=== PATIENT | male | born 1940 | race Caucasian/White ===

== ENCOUNTER 2024-12-27 17:44 | Inpatient (IN) | payer MEDICARE, BC ==
--- NOTE | 2024-12-27 18:07 | ED ---
Weakness HPI - General Chief complaint: Shortness of Breath Stated complaint: SERGIO feeling unwell Time Seen by Provider: 12/27/24 18:05 Source: patient, family, RN notes reviewed, old records reviewed Mode of arrival: wheelchair Limitations: no limitations - History of Present Illness Initial comments: This is a 84-year-old male relatively no distress coming in for exertional dyspnea. Patient has recent longstanding exertional dyspnea with decreased a ctivity level decreased strength unable to get up stairs and go to his own bed and significant shortness of breath with decreased function and decreased activities of daily living MD Complaint: generalized weakness, lack of energy, difficulty walking (Exertional dyspnea) -: week(s) Location: generalized Severity: severe Severity scale (1-10): 8 Consistency: constant Improves with: none Worsens with: none Context: history of similar Associated Symptoms: denies other symptoms, shortness of breath - Related Data Home Medications Medication Instructions Recorded Confirmed Apixaban [Eliquis] 5 mg PO BID 12/28/24 12/28/24 Metoprolol Tartrate [Lopressor] 12.5 mg PO DAILY 12/28/24 12/28/24 Pravastatin Sodium [Pravachol] 20 mg PO DAILY 12/28/24 12/28/24 Terazosin HCl 10 mg PO BID 12/28/24 12/28/24 glyBURIDE/METFORMIN HCL 2 tab PO BID 12/28/24 12/28/24 [Glucovance 5-500 mg] Sacubitril/Valsartan [Entresto 24 24 - 26 each PO BID 12/29/24 12/29/24 mg-26 mg Tablet] Allergies Allergy/AdvReac Type Severity Reaction Status Date / Time No Known Allergies Allergy Verified 12/27/24 17:56 Review of Systems ROS Statement: Those systems with pertinent positive or pertinent negative responses have been documented in the HPI. ROS Other: All systems not noted in ROS Statement are negative. Past Medical History Past Medical History: Atrial Fibrillation, Coronary Artery Disease (CAD), Diabetes Mellitus, Hypertension Additional Past Surgical History / Comment(s): Heart cath with no stents, has a pacemaker Smoking Status: Never smoker Past Alcohol Use History: Rare Past Drug Use History: None Reported General Exam Limitations: no limitations General appearance: anxious Head exam: Present: atraumatic, normocephalic, normal inspection Eye exam: Present: normal appearance, PERRL, EOMI. Absent: scleral icterus, conjunctival injection, periorbital swelling ENT exam: Present: normal exam, mucous membranes moist Neck exam: Present: normal inspection. Absent: tenderness, meningismus, ly mphadenopathy Respiratory exam: Present: normal lung sounds bilaterally. Absent: respiratory distress, wheezes, rales, rhonchi, stridor Cardiovascular Exam: Present: regular rate, normal rhythm, normal heart sounds. Absent: systolic murmur, diastolic murmur, rubs, gallop, clicks GI/Abdominal exam: Present: soft, normal bowel sounds. Absent: distended, tenderness, guarding, rebound, rigid Extremities exam: Present: normal inspection, full ROM, normal capillary refill. Absent: tenderness, pedal edema, joint swelling, calf tenderness Back exam: Present: normal inspection Neurological exam: Present: alert, oriented X3, CN II-XII intact Psychiatric exam: Present: normal affect, normal mood Skin exam: Present: warm, dry, intact, normal color. Absent: rash Course Vital Signs 12/27/24 12/27/24 12/27/24 17:52 21:01 21:09 Temperature 97.8 F Pulse Rate 88 68 71 Respiratory 16 18 18 Rate Blood Pressure 160/71 O2 Sat by Pulse 98 Oximetry 12/27/24 12/28/24 12/28/24 23:27 02:28 04:00 Temperature Pulse Rate 69 71 67 Respiratory 16 18 16 Rate Blood Pressure 115/59 126/66 117/67 O2 Sat by Pulse 97 97 97 Oximetry 12/28/24 12/28/24 12/28/24 06:00 07:56 12:04 Temperature 97.8 F Pulse Rate 62 71 78 Respiratory 16 18 18 Rate Blood Pressure 117/67 117/67 125/68 O2 Sat by Pulse 94 L 95 96 Oximetry 12/28/24 12/28/24 12/28/24 18:07 19:38 20:25 Temperature 97.8 F Pulse Rate 74 74 78 Respiratory 17 21 20 Rate Blood Pressure 134/67 123/59 113/61 O2 Sat by Pulse 94 L 97 98 Oximetry - Reevaluation(s) Reevaluation #1: 12/27/24 18:07 Medical records reviewed Reevaluation #2: 12/27/24 19:56 Patient symptoms relatively unchanged in the emergency department Reevaluation #3: 12/27/24 19:56 Patient informed of results questions answered Reevaluation #4: Was pt. sent in by a medical professional or institution (ALISIA Mccloud, REPORTS DEVELOPER, urgent care, hospital, or shelter...) When possible be specific @ -no Did you speak to anyone other than the patient for history (EMS, parent, family, police, friend...)? What history was obtained from this source @ -no Did you review nursing and triage notes (agree or disagree)? Why? @ -agree Are old charts reviewed (outside hosp., previous admission, EMS record, old EKG, old radiological studies, urgent care reports/EKG's, shelter records)? Report findings @ -yes Differential Diagnosis (chest pain, altered mental status, abdominal pain women, abdominal pain men, vaginal bleeding, weakness, fever, dyspnea, syncope, headache, dizziness, GI bleed, back pain, seizure, CVA, palpatations, mental health, musculoskeletal)? @ -prior EKG interpreted by me (3pts min.). @ -yes X-rays interpreted by me (1pt min.). @ -yes pleural effusion CT interpreted by me (1pt min.). @ -no U/S interpreted by me (1pt. min.). @ -no What testing was considered but not performed or refused? (CT, X-rays, U/S, labs)? Why? @ -none What meds were considered but not given or refused? Why? @ -none Did you discuss the management of the patient with other professionals (professionals i.e. ALISIA Mccloud, REPORTS DEVELOPER, lab, RT, psych nurse, social media job titles, real estate leasing manager, teacher, chief strategy officer, onsite case manager)? Give summary @ -no Was smoking cessation discussed for >3mins.? @ -no Was critical care preformed (if so, how long)? @ -no Were there social determinants of health that impacted care today? How? (Homelessness, low income, unemployed, alcoholism, drug addiction, transportation, low edu. Level, literacy, decrease access to med. care, penitentiary, rehab)? @ -none Was there de-escalation of care discussed even if they declined (Discuss DNR or withdrawal of care, Hospice)? DNR status @ -no What co-morbidities impacted this encounter? (DM, HTN, Smoking, COPD, CAD, Cancer, CVA, ARF, Chemo, Hep., AIDS, mental health diagnosis, sleep apnea, morbid obesity)? @ -none Was patient admitted / discharged? Hospital course, mention meds given and route, prescriptions, significant lab abnormalities, going to OR and other pertinent info. @ - 84 male to ER for multifactorial respiratory distressCHF pleural effusions likely pneumonia with elevated white blood cell count will admit for IV antibi otics breathing treatments pulmonology and cardiology evaluations Admitted Undiagnosed new problem with uncertain prognosis? @ -no Drug Therapy requiring intensive monitoring for toxicity (Heparin, Nitro, Insulin, Cardizem)? @ -no Were any procedures done? @ -no Diagnosis/symptom? @ -Fever, pneumonia, pleural effusions Acute, or Chronic, or Acute on Chronic? @ -Acute Uncomplicated (without systemic symptoms) or Complicated (systemic symptoms)? @ -Complicated Side effects of treatment? @ -no Exacerbation, Progression, or Severe Exacerbation? @ -exacerbation Poses a threat to life or bodily function? How? (Chest pain, USA, VA, pneumonia, PE, COPD, DKA, ARF, appy, cholecystitis, CVA, Diverticulitis, Homicidal, Suicidal, threat to staff... and all critical care pts) @ -yes extremes of age Reevaluation #5: Differential Weakness: Hypoglycemia, shock, sepsis, hyponatremia, anemia, infection, VA, ETOH, adverse medicine reaction, overdose, stroke, this is not meant to be an all-inclusive list. - Consultations Consultation #1: Spoke with sound who agrees to admit this patient EKG Findings - EKG Comments: EKG Findings:: EKG is A-fib 74 QRS 104 QTc 424 - EKG Results: EKG: interpreted by ERMD Medical Decision Making - Medical Decision Making 84 male to ER for multifactorial respiratory distressCHF pleural effusions likely pneumonia with elevated white blood cell count will admit for IV antibiotics breathing treatments pulmonology and cardiology evaluations - Lab Data Result diagrams: 01/02/25 05:55 01/02/25 05:55 Lab Results 12/27/24 12/27/24 12/27/24 Range/Units 18:57 18:57 18:57 WBC 21.1 H (3.8-10.6) k/uL RBC 2.77 L (4.30-5.90) m/uL Hgb 8.4 L (13.0-17.5) gm/dL Hct 26.0 L (39.0-53.0) % MCV 93.9 (80.0-100.0) fL MCH 30.3 (25.0-35.0) pg MCHC 32.2 (31.0-37.0) g/dL RDW 14.6 (11.5-15.5) % Plt Count 365 (150-450) k/uL MPV 8.2 Neutrophils % 88 % Lymphocytes % 7 % Monocytes % 4 % Eosinophils % 1 % Basophils % 0 % Neutrophils # 18.5 H (1.3-7.7) k/uL Lymphocytes # 1.4 (1.0-4.8) k/uL Monocytes # 0.8 (0-1.0) k/uL Eosinophils # 0.2 (0-0.7) k/uL Basophils # 0.1 (0-0.2) k/uL Hypochromasia Slight PT 11.4 (10.0-12.5) sec INR 1.0 (<1.2) APTT 23.2 (22.0-30.0) sec Sodium 135 L (137-145) mmol/L Potassium 4.1 (3.5-5.1) mmol/L Chloride 100 (98-107) mmol/L Carbon Dioxide 26 (22-30) mmol/L Anion Gap 9 mmol/L BUN 26 H (9-20) mg/dL Creatinine 1.18 (0.66-1.25) mg/dL Est GFR (CKD-EPI)AfAm 64 (>60 ml/min/1.73 sqM) Est GFR (CKD-EPI)NonAf 56 (>60 ml/min/1.73 sqM) Glucose 236 H (74-99) mg/dL Lactic Ac Sepsis Rflx Plasma Lactic Acid Flo (0.7-2.0) mmol/L Calcium 8.8 (8.4-10.2) mg/dL Phosphorus 3.2 (2.5-4.5) mg/dL Magnesium 1.9 (1.6-2.3) mg/dL Total Bilirubin 0.4 (0.2-1.3) mg/dL AST 23 (17-59) U/L ALT 13 (4-49) U/L Alkaline Phosphatase 104 (38-126) U/L Troponin I (0.000-0.034) ng/mL NT-Pro-B Natriuret Pep 1790 pg/mL Total Protein 5.9 L (6.3-8.2) g/dL Albumin 3.1 L (3.5-5.0) g/dL TSH 1.850 (0.465-4.680) mIU/L Urine Color Urine Appearance (Clear) Urine pH (5.0-8.0) Ur Specific Alpine (1.001-1.035) Urine Protein (Negative) Urine Glucose (UA) (Negative) Urine Ketones (Negative) Urine Blood (Negative) Urine Nitrite (Negative) Urine Bilirubin (Negative) Urine Urobilinogen (<2.0) mg/dL Ur Leukocyte Esterase (Negative) Urine RBC (0-5) /hpf Urine WBC (0-5) /hpf Urine WBC Clumps (None) /hpf Ur Squamous Epith Cells (0-4) /hpf Calcium Oxalate Crystal (None) /hpf Hyaline Casts (0-2) /lpf Urine Mucus (None) /hpf Influenza Type A (PCR) (Not Detectd) Influenza Type B (PCR) (Not Detectd) RSV (PCR) (Not Detectd) SARS-CoV-2 (PCR) (Not Detectd) 12/27/24 12/27/24 12/27/24 Range/Units 18:57 18:57 18:57 WBC (3.8-10.6) k/uL RBC (4.30-5.90) m/uL Hgb (13.0-17.5) gm/dL Hct (39.0-53.0) % MCV (80.0-100.0) fL MCH (25.0-35.0) pg MCHC (31.0-37.0) g/dL RDW (11.5-15.5) % Plt Count (150-450) k/uL MPV Neutrophils % % Lymphocytes % % Monocytes % % Eosinophils % % Basophils % % Neutrophils # (1.3-7.7) k/uL Lymphocytes # (1.0-4.8) k/uL Monocytes # (0-1.0) k/uL Eosinophils # (0-0.7) k/uL Basophils # (0-0.2) k/uL Hypochromasia PT (10.0-12.5) sec INR (<1.2) APTT (22.0-30.0) sec Sodium (137-145) mmol/L Potassium (3.5-5.1) mmol/L Chloride (98-107) mmol/L Carbon Dioxide (22-30) mmol/L Anion Gap mmol/L BUN (9-20) mg/dL Creatinine (0.66-1.25) mg/dL Est GFR (CKD-EPI)AfAm (>60 ml/min/1.73 sqM) Est GFR (CKD-EPI)NonAf (>60 ml/min/1.73 sqM) Glucose (74-99) mg/dL Lactic Ac Sepsis Rflx Plasma Lactic Acid Flo 3.2 H* (0.7-2.0) mmol/L Calcium (8.4-10.2) mg/dL Phosphorus (2.5-4.5) mg/dL Magnesium (1.6-2.3) mg/dL Total Bilirubin (0.2-1.3) mg/dL AST (17-59) U/L ALT (4-49) U/L Alkaline Phosphatase (38-126) U/L Troponin I 0.014 (0.000-0.034) ng/mL NT-Pro-B Natriuret Pep pg/mL Total Protein (6.3-8.2) g/dL Albumin (3.5-5.0) g/dL TSH (0.465-4.680) mIU/L Urine Color Urine Appearance (Clear) Urine pH (5.0-8.0) Ur Specific Alpine (1.001-1.035) Urine Protein (Negative) Urine Glucose (UA) (Negative) Urine Ketones (Negative) Urine Blood (Negative) Urine Nitrite (Negative) Urine Bilirubin (Negative) Urine Urobilinogen (<2.0) mg/dL Ur Leukocyte Esterase (Negative) Urine RBC (0-5) /hpf Urine WBC (0-5) /hpf Urine WBC Clumps (None) /hpf Ur Squamous Epith Cells (0-4) /hpf Calcium Oxalate Crystal (None) /hpf Hyaline Casts (0-2) /lpf Urine Mucus (None) /hpf Influenza Type A (PCR) Not Detected (Not Detectd) Influenza Type B (PCR) Not Detected (Not Detectd) RSV (PCR) Not Detected (Not Detectd) SARS-CoV-2 (PCR) Not Detected (Not Detectd) 12/27/24 12/27/24 Range/Units 19:49 19:50 WBC (3.8-10.6) k/uL RBC (4.30-5.90) m/uL Hgb (13.0-17.5) gm/dL Hct (39.0-53.0) % MCV (80.0-100.0) fL MCH (25.0-35.0) pg MCHC (31.0-37.0) g/dL RDW (11.5-15.5) % Plt Count (150-450) k/uL MPV Neutrophils % % Lymphocytes % % Monocytes % % Eosinophils % % Basophils % % Neutrophils # (1.3-7.7) k/uL Lymphocytes # (1.0-4.8) k/uL Monocytes # (0-1.0) k/uL Eosinophils # (0-0.7) k/uL Basophils # (0-0.2) k/uL Hypochromasia PT (10.0-12.5) sec INR (<1.2) APTT (22.0-30.0) sec Sodium (137-145) mmol/L Potassium (3.5-5.1) mmol/L Chloride (98-107) mmol/L Carbon Dioxide (22-30) mmol/L Anion Gap mmol/L BUN (9-20) mg/dL Creatinine (0.66-1.25) mg/dL Est GFR (CKD-EPI)AfAm (>60 ml/min/1.73 sqM) Est GFR (CKD-EPI)NonAf (>60 ml/min/1.73 sqM) Glucose (74-99) mg/dL Lactic Ac Sepsis Rflx Y Plasma Lactic Acid Flo (0.7-2.0) mmol/L Calcium (8.4-10.2) mg/dL Phosphorus (2.5-4.5) mg/dL Magnesium (1.6-2.3) mg/dL Total Bilirubin (0.2-1.3) mg/dL AST (17-59) U/L ALT (4-49) U/L Alkaline Phosphatase (38-126) U/L Troponin I (0.000-0.034) ng/mL NT-Pro-B Natriuret Pep pg/mL Total Protein (6.3-8.2) g/dL Albumin (3.5-5.0) g/dL TSH (0.465-4.680) mIU/L Urine Color Yellow Urine Appearance Clear (Clear) Urine pH 5.5 (5.0-8.0) Ur Specific Alpine 1.025 (1.001-1.035) Urine Protein Trace H (Negative) Urine Glucose (UA) 4+ H (Negative) Urine Ketones Negative (Negative) Urine Blood Negative (Negative) Urine Nitrite Negative (Negative) Urine Bilirubin Negative (Negative) Urine Urobilinogen <2.0 (<2.0) mg/dL Ur Leukocyte Esterase Small H (Negative) Urine RBC 7 H (0-5) /hpf Urine WBC 39 H (0-5) /hpf Urine WBC Clumps Rare H (None) /hpf Ur Squamous Epith Cells <1 (0-4) /hpf Calcium Oxalate Crystal Rare H (None) /hpf Hyaline Casts 10 H (0-2) /lpf Urine Mucus Occasional H (None) /hpf Influenza Type A (PCR) (Not Detectd) Influenza Type B (PCR) (Not Detectd) RSV (PCR) (Not Detectd) SARS-CoV-2 (PCR) (Not Detectd) - EKG Data -: EKG Interpreted by Me - Radiology Data Radiology results: report reviewed (Chest x-ray positive for pulmonary edema pleural effusions and likely pneumonia), image reviewed Critical Care Time Critical Care Time: Yes Total Critical Care Time: 31 Disposition Clinical Impression: Community acquired pneumonia, Acute pulmonary edema, Congestive heart failure, Bilateral pleural effusion, Exertional dyspnea Disposition: ADMITTED IP TO THIS HOSP Condition: Fair Is patient prescribed a controlled substance at d/c from ED?: No Time of Disposition: 19:50
[2024-12-27 19:23] LABS: ALT 13 U/L (4-49); AST 23 U/L (17-59); African American GFR (CKD) 64 (>60 ml/min/1.73 sqM); Albumin 3.1 g/dL (3.5-5.0); Alkaline Phosphatase 104 U/L (38-126); Anion Gap 9 mmol/L; Blood Urea Nitrogen 26 mg/dL (9-20); Calcium 8.8 mg/dL (8.4-10.2); Carbon Dioxide 26 mmol/L (22-30); Chloride 100 mmol/L (98-107); Glucose 236 mg/dL (74-99); Magnesium 1.9 mg/dL (1.6-2.3); Non-African American GFR(CKD) 56 (>60 ml/min/1.73 sqM); Phosphorus 3.2 mg/dL (2.5-4.5); Potassium 4.1 mmol/L (3.5-5.1); Sodium 135 mmol/L (137-145); Total Bilirubin 0.4 mg/dL (0.2-1.3); Total Protein 5.9 g/dL (6.3-8.2)
[2024-12-27 19:24] LABS: Partial Thromboplastin Time 23.2 sec (22.0-30.0); Prothrombin Time 11.4 sec (10.0-12.5)
[2024-12-27] MEDS: SODIUM CHLORIDE 0.9% 1,000 ML IV STA (19:25)
[2024-12-27 19:27] LABS: Basophils # (A) 0.1 k/uL (0-0.2); Basophils % (A) 0 %; Eosinophils # (A) 0.2 k/uL (0-0.7); Eosinophils % (A) 1 %; HGB 8.4 gm/dL (13.0-17.5); Hypochromasia Slight; Lymphocytes # (A) 1.4 k/uL (1.0-4.8); Lymphocytes % (A) 7 %; MCH 30.3 pg (25.0-35.0); MCHC 32.2 g/dL (31.0-37.0); MCV 93.9 fL (80.0-100.0); Mean Platelet Volume 8.2; Monocytes # (A) 0.8 k/uL (0-1.0); Monocytes % (A) 4 %; Neutrophils # (A) 18.5 k/uL (1.3-7.7); Neutrophils % (A) 88 %; Platelet Count 365 k/uL (150-450); RBC 2.77 m/uL (4.30-5.90); RDW 14.6 % (11.5-15.5); WBC 21.1 k/uL (3.8-10.6)
--- NOTE | 2024-12-27 19:30 | XR ---
EXAMINATION TYPE: XR chest 2V DATE OF EXAM: 12/27/2024 7:24 PM COMPARISON: None. CLINICAL INDICATION: Male, 84 years old with history of Weakness; [facility] TECHNIQUE: XR chest 2V Frontal and lateral views of the chest. FINDINGS: Cardiomegaly. Left chest wall cardiac pacemaker device. No acute focal consolidation. Small right and trace left pleural effusions. No pneumothorax. No acute osseous abnormality. IMPRESSION: Cardiomegaly with small right and trace left pleural effusions. [facility], , 12/27/2024 7:28 PM
[2024-12-27 19:31] LABS: NT-Pro-B-Type Natriuretic Pept 1790 pg/mL
[2024-12-27 19:49] LABS: Influenza A Not Detected (Not Detectd); Influenza B Not Detected (Not Detectd); RSV Not Detected (Not Detectd)
[2024-12-27] MEDS ORDERED: PNEUMONIA PROTOCOL UTILIZED 1 EACH MISC PO PRN (19:49)
[2024-12-27] MEDS ORDERED: IPRATROPIUM-ALBUTEROL 3 ML NEB INHALATION PRN (19:49)
[2024-12-27] MEDS: FUROSEMIDE 10 MG/ML 4 ML VIAL IV SCH (20:32)
[2024-12-27] MEDS: SODIUM CHLORIDE 0.9% 1,000 ML IV SCH (20:39)
[2024-12-27 20:45] LABS: Appearance,Urine Clear (Clear); Bilirubin,Urine Negative (Negative); Blood,Urine Negative (Negative); Calcium Oxalate Crystals,Urine Rare /hpf; Color,Urine Yellow; Glucose,Urine (UA) 4+ (Negative); Hyaline Casts,Urine 10 /lpf (0-2); Ketones,Urine Negative (Negative); Leukocyte Esterase,Urine Small (Negative); Mucus,Urine Occasional /hpf; Nitrite,Urine Negative (Negative); PH, Urine 5.5 (5.0-8.0); Protein,Urine Trace (Negative); RBC,Urine 7 /hpf (0-5); Specific Gravity,Urine 1.025 (1.001-1.035); Squamous Epithelial Cell,Urine <1 /hpf (0-4); Urobilinogen,Urine <2.0 mg/dL (<2.0); WBC,Urine 39 /hpf (0-5)
[2024-12-27] MEDS: IPRATROPIUM-ALBUTEROL 3 ML NEB INHALATION STA (21:01)
[2024-12-27] MEDS: AZITHROMYCIN 500 MG in SODIUM CHLORIDE 0.9% 250 ML IVPB STA (21:20)
--- NOTE | 2024-12-28 03:25 | P.CNPUL ---
History of Present Illness Consult date: 12/28/24 Requesting physician: Rashel Traore Reason for consult: pneumonia Chief complaint: Shortness of breath History of present illness: Patient is a 84-year-old male with past medical history significant for atrial fibrillation, permanent pacemaker, diabetes mellitus. His primary care provider is a Dr. Morgan Pierre out of [place]. He is uncertain of the medications that he takes. Patient normally follows in [facility] for his medical needs. States that he has been suffering from shortness of breath that limits his activity, progressively worse over the last year. Workup in the emergency department includes a chest x-ray showing cardiomegaly with small to trace bilateral pleural effusions. NT proBNP elevated at 1790. CBC: WBC count 21.1, hemoglobin 8.4, hematocrit 26, platelets 365. CMP: Sodium 135, potassium 4.1, chloride 100, serum bicarb 26, BUN 26, creatinine 1.18, glucose 236. Lactic was 3.2 and is down to 2.2. Troponins 0.014, 0.02, and 0.02 respectively. EKG: Atrial fibrillation with controlled ventricular response, rate 74 bpm, no acute ischemic changes. Viral screen negative for influenza, RSV, COVID. Patient currently being evaluated in the emergency department. He is resting comfortably in bed on room air oxygen. SpO2 reading 97% on bedside monitor. Shortness of breath is particularly worse with exertion. States that he can no longer perform ADLs without much difficulty. He becomes severely short of breath with exertion such as walking out to the mailbox. Denies pre-existing COPD or asthma. Non-smoker. Denies infectious-like symptoms. Denies history of heart failure. Denies chest pain, heart palpitations, lightheadedness/syncopal events, orthopnea, PND, lower extremity swelling. States he does not take any diuretics; however, he is unsure of his home medications. Reportedly does take Eliquis. Denies any samir blood loss, melena. Vital signs: Afebrile, heart rate 70 bpm, blood pressure 126/66 mmHg, nontachypneic, SpO2 reading 97% on room air. Review of Systems Constitutional: Reports fatigue, Denies chills, Denies fever, Denies night sweats, Denies poor appetite, Denies weight gain, Denies weight loss Ears, nose, mouth and throat: Denies headache, Denies nasal congestion, Denies nasal discharge, Denies post-nasal drip, Denies sinus pain, Denies sinus pressure, Denies sore throat Cardiovascular: Reports decreased exercise tolerance, Reports dyspnea on exertion, Denies chest pain, Denies leg edema, Denies lightheadedness, Denies orthopnea, Denies palpitations, Denies paroxysmal nocturnal dyspnea Respiratory: Denies congestion, Denies cough, Denies hemoptysis, Denies home oxygen Gastrointestinal: Denies abdominal pain, Denies change in bowel habits, Denies diarrhea, Denies hematemesis, Denies hematochezia, Denies melena, Denies nausea, Denies vomiting Genitourinary: Denies dysuria Musculoskeletal: Denies limitation of motion Integumentary: Denies rash Neurological: Denies seizures, Denies syncope Psychiatric: Denies anxiety, Denies depression Past Medical History Past Medical History: Atrial Fibrillation, Coronary Artery Disease (CAD), Diabetes Mellitus, Hypertension Additional Past Surgical History / Comment(s): Heart cath with no stents, has a pacemaker Smoking Status: Never smoker Past Alcohol Use History: Rare Past Drug Use History: None Reported Medications and Allergies Allergies Allergy/AdvReac Type Severity Reaction Status Date / Time No Known Allergies Allergy Verified 12/27/24 17:56 Physical Exam Vitals: Vital Signs Temp Pulse Resp BP Pulse Ox 12/27/24 23:27 69 16 115/59 97 12/27/24 21:09 71 18 12/27/24 21:01 68 18 12/27/24 17:52 97.8 F 88 16 160/71 98 Intake and Output 12/27/24 12/27/24 12/28/24 14:59 22:59 06:59 Output Total 750 Balance -750 Output: Urine 750 Other: Weight 79.379 kg GENERAL EXAM: Alert, 84-year-old male, comfortable in no apparent distress while at rest. HEAD: Normocephalic and atraumatic EYES: Normal reaction of pupils, equal size. NOSE: Clear with pink turbinates. THROAT: No erythema or exudates. NECK: No masses, no JVD. CHEST: No chest wall deformity. LUNGS: Equal air entry with no crackles, wheeze, rhonchi or dullness. On room air. No conversational dyspnea or accessory muscle use.. CVS: S1 and S2 normal with no audible murmur, irregular rhythm. No extra heart sounds ABDOMEN: No hepatosplenomegaly, active bowel sounds, no guarding or rigidity. SPINE: No scoliosis or deformity SKIN: No rashes CENTRAL NERVOUS SYSTEM: No focal deficits, tone is normal in all 4 extremities. EXTREMITIES: There is no peripheral edema, clubbing, or cyanosis. Peripheral pulses are intact. Results - Laboratory Findings CBC and BMP: 12/27/24 18:57 12/27/24 18:57 PT/INR, D-dimer PT 11.4 sec (10.0-12.5) 12/27/24 18:57 INR 1.0 (<1.2) 12/27/24 18:57 Abnormal lab findings: Abnormal Labs 12/27/24 12/27/24 12/27/24 18:57 18:57 18:57 WBC 21.1 H RBC 2.77 L Hgb 8.4 L Hct 26.0 L Neutrophils # 18.5 H Sodium 135 L BUN 26 H Glucose 236 H Plasma Lactic Acid Flo 3.2 H* Total Protein 5.9 L Albumin 3.1 L Urine Protein Urine Glucose (UA) Ur Leukocyte Esterase Urine RBC Urine WBC Urine WBC Clumps Calcium Oxalate Crystal Hyaline Casts Urine Mucus 12/27/24 12/27/24 19:50 22:11 WBC RBC Hgb Hct Neutrophils # Sodium BUN Glucose Plasma Lactic Acid Flo 2.2 H* Total Protein Albumin Urine Protein Trace H Urine Glucose (UA) 4+ H Ur Leukocyte Esterase Small H Urine RBC 7 H Urine WBC 39 H Urine WBC Clumps Rare H Calcium Oxalate Crystal Rare H Hyaline Casts 10 H Urine Mucus Occasional H - Diagnostic Findings Chest x-ray: image reviewed Assessment and Plan Assessment: Suspect acute CHF exacerbation, unknown type Acute on chronic dyspnea, chest x-ray showing cardiomegaly with small to trace bilateral pleural effusions. NT proBNP 1790. Acute leukocytosis Normocytic, normochromic anemia, monitor for blood loss Atrial fibrillation with controlled ventricular response, reportedly anticoagulated on Eliquis Permanent pacemaker History of hypertension Diabetes mellitus type 2 Plan: Currently on room air Continue Lasix 40 mg twice daily Echocardiogram is ordered Cardiology consulted Patient previously started on empiric antibiotics in the ED, obtain procalcitonin, and manage accordingly Obtain medication reconciliation and medical history We will continue to follow I have personally seen and examined the patient, performed the documentation and the assessment and plan as written. Number of minutes spent on the visit:20 This dictation was produced using [employer] dictation software please excuse grammatical errors Time with Patient: Greater than 30
--- NOTE | 2024-12-28 06:56 | XR ---
EXAMINATION TYPE: XR chest 1V portable DATE OF EXAM: 12/28/2024 CLINICAL HISTORY: Difficulty breathing and pneumonia progress study. TECHNIQUE: Single AP portable semiupright view of the chest is obtained. COMPARISON: Chest x-ray from one day earlier FINDINGS: There is cardiomegaly with dual lead pacemaker and atherosclerotic thoracic aorta redemons trated. Patchy bibasilar opacities on current study. Upper lungs remain clear. Osseous structures are intact. IMPRESSION: Persistent cardiomegaly with new patchy bibasilar opacities favoring atelectasis. [facility], , 12/28/2024 6:54 AM
[2024-12-28 07:17] LABS: HGB 7.7 gm/dL (13.0-17.5); Hypochromasia Slight; MCH 30.2 pg (25.0-35.0); MCHC 32.2 g/dL (31.0-37.0); MCV 93.8 fL (80.0-100.0); Mean Platelet Volume 7.6; Platelet Count 332 k/uL (150-450); RBC 2.56 m/uL (4.30-5.90); RDW 14.8 % (11.5-15.5); WBC 19.9 k/uL (3.8-10.6)
[2024-12-28 08:42] LABS: Magnesium 1.9 mg/dL (1.6-2.3)
--- NOTE | 2024-12-28 08:45 | P.CRDCN ---
History of Present Illness Consult date: 12/28/24 History of present illness: HISTORY OF PRESENTING ILLNESS: Patient is a 84-year-old male with past medical history of atrial fibrillation, PPM, type 2 diabetes. He presented to the hospital because of increased worsening shortness of breath along with minimal exertion which was progressively getting worse. Cardiology was consulted because of mild elevated NT proBNP and prior history of atrial fibrillation. Diagostics: Admission Labs: Leukocytosis WBC 19.9, anemia hemoglobin 7.7, elevated lactate of 2.2, troponin negative at 0.02, creatinine 1.18, glucose 236, NT-proBNP 1790 Admission EKG: Atrial paced V sensed rhythm Cardio relavant imaging: Chest x-ray shows possible right lower lobe infiltrates consistent with pneumonia. REVIEW OF SYSTEMS: 14 point review of system is negative except what is mentioned above in HPI. PHYSICAL EXAMINATION: Neck: Brisk carotid upstroke, no jugular venous distention. Lungs: Clear to auscultation. Heart: Irregular pulses, S1-S2, , no murmur or rub. Abdomen: Soft nontender, positive bowel sounds. Extremities: No edema, intact distal pulses. Neuro: Alert, oritented, no focal deficits. Detailed neuro exam was not perform ed. ASSESSMENT: # Acute hypoxic respiratory failure # Sepsis with pneumonia # History of atrial fibrillation # History of PPM # Lactic acidosis # Elevated NT proBNP however less likely congestive heart failure from physical examination. PLAN: Obtain lipid panel, HbA1c, TSH level. Obtain procalcitonin level Obtain echocardiogram For some reason he is not on anticoagulation. He is not able to tell me what could be the reason. Patient is a poor historian and has difficulty in hearing. I will start him on Eliquis 2.5 mg twice daily because of age and frail status and anemia. Monitor hemoglobin levels, kidney function. Continue IV diuretics and antibiotics at this time. Consider changing to p.o. diuretics and adding SGLT2 tomorrow based on kidney function and electrolytes. Hoemro Flores MD, FACC, RPVI Thank you for allowing [facility] to participate in this patient's care. Feel free to reach out in case of any followup questions. Past Medical History Past Medical History: Atrial Fibrillation, Coronary Artery Disease (CAD), Diabetes Mellitus, Hypertension Additional Past Surgical History / Comment(s): Heart cath with no stents, has a pacemaker Smoking Status: Never smoker Past Alcohol Use History: Rare Past Drug Use History: None Reported Medications and Allergies Allergies Allergy/AdvReac Type Severity Reaction Status Date / Time No Known Allergies Allergy Verified 12/27/24 17:56 Physical Exam Vitals: Vital Signs Temp Pulse Resp BP Pulse Ox 12/28/24 07:56 97.8 F 71 18 117/67 95 12/28/24 06:00 62 16 117/67 94 L 12/28/24 04:00 67 16 117/67 97 12/28/24 02:28 71 18 126/66 97 12/27/24 23:27 69 16 115/59 97 12/27/24 21:09 71 18 12/27/24 21:01 68 18 12/27/24 17:52 97.8 F 88 16 160/71 98 Intake and Output 12/27/24 12/28/24 12/28/24 22:59 06:59 14:59 Output Total 1125 Balance -1125 Output: Urine 1125 Other: Weight 79.379 kg Results 12/28/24 06:33 12/27/24 18:57 Cardiac Enzymes 12/27/24 12/27/24 12/27/24 Range/Units 18:57 18:57 22:11 AST 23 (17-59) U/L Troponin I 0.014 0.020 (0.000-0.034) ng/mL 12/28/24 Range/Units 01:51 AST (17-59) U/L Troponin I 0.020 (0.000-0.034) ng/mL Coagulation 12/27/24 Range/Units 18:57 PT 11.4 (10.0-12.5) sec APTT 23.2 (22.0-30.0) sec CBC 12/27/24 12/28/24 Range/Units 18:57 06:33 WBC 21.1 H 19.9 H (3.8-10.6) k/uL RBC 2.77 L 2.56 L (4.30-5.90) m/uL Hgb 8.4 L 7.7 L (13.0-17.5) gm/dL Hct 26.0 L 24.0 L (39.0-53.0) % Plt Count 365 332 (150-450) k/uL Comprehensive Metabolic Panel 12/27/24 Range/Units 18:57 Sodium 135 L (137-145) mmol/L Potassium 4.1 (3.5-5.1) mmol/L Chloride 100 (98-107) mmol/L Carbon Dioxide 26 (22-30) mmol/L BUN 26 H (9-20) mg/dL Creatinine 1.18 (0.66-1.25) mg/dL Glucose 236 H (74-99) mg/dL Calcium 8.8 (8.4-10.2) mg/dL AST 23 (17-59) U/L ALT 13 (4-49) U/L Alkaline Phosphatase 104 (38-126) U/L Total Protein 5.9 L (6.3-8.2) g/dL Albumin 3.1 L (3.5-5.0) g/dL Current Medications Generic Name Dose Route Start Last Admin Trade Name Freq PRN Reason Stop Dose Admin Albuterol/Ipratropium 3 ml 12/27/24 19:49 Ipratropium-Albuterol 3 Ml Neb INHALATION RT-QID PRN Shortness Of Breath Azithromycin 500 mg 12/28/24 21:00 Azithromycin 500 Mg Tab PO 12/29/24 21:01 [facility] Protocol Furosemide 40 mg 12/27/24 20:00 12/28/24 07:51 Furosemide 10 Mg/Ml 4 Ml Vial IV 40 mg Q12H CIARA Administration Sodium Chloride 1,000 mls @ 20 mls/hr 12/27/24 20:00 12/27/24 20:39 Saline 0.9% IV Not Given .Q24H CIARA Ceftriaxone Sodium 2 gm/ 50 mls @ 100 mls/hr 12/28/24 21:00 Sodium Chloride IVPB 12/31/24 21:29 [facility] Protocol Miscellaneous Information 1 each 12/27/24 19:49 Pneumonia Protocol Utilized 1 Each Misc PO ONCE PRN Per Protocol Intake and Output 12/27/24 12/28/24 12/28/24 22:59 06:59 14:59 Output Total 1125 Balance -1125 Output: Urine 1125 Other: Weight 79.379 kg 12/28/24 06:33 12/27/24 18:57
[2024-12-28] MEDS: APIXABAN 2.5 MG TABLET PO SCH (08:57)
[2024-12-28 15:22] LABS: Chol/HDL Ratio 3.99 Ratio; VLDL Calculation 17.72 mg/dL (5.00-40.00)
[2024-12-28] MEDS ORDERED: DEXTROSE 50% SYRINGE 50 ML IVP PRN ×2 (17:24)
--- NOTE | 2024-12-28 17:26 | P.HPIM ---
History of Present Illness H&P Date: 12/28/24 84 year old M with PMH AFib, pacemaker, DM, CAD, HTN presents to the ED for shortness of breath. Supplemental information obtained from family at bedside as patient is a poor historian. Family reports exertional shortness of breath, fatigue, unsteady gait that has been progressively getting worse over the past month. Family also reports melanotic stools and decreased appetite leading to 30 pound weight loss since May. Patient denies cough, fever or chills, nausea or vomiting, lower extremity edema, changes in urination. In the ED he underwent extensive evaluation. BP 160/71, HR 88, T 97.8F, RR 16, 98% on RA. CBC, Coag panel, CMP significant for WBC 21.1, RBC 2.77, Hg 8.4, Hct 26, Na 135, BUN 26, glu 236, alb 3.1. Lactic acid 3.2. BNP 1790. Trop 0.014, 0.02, 0.02. Procal 0.14. TSH 1.85. UA small LE with 39 WBCs. COVID, RSV, Flu neg. CXR cardiomegaly with small R and trace L pleural effusion. EKG A-Fib with Q waves in the inferior leads. Patient is admitted for further workup and management. General: non toxic, no distress, appears at stated age Derm: warm, dry Head: atraumatic, normocephalic, symmetric Eyes: EOMI, no lid lag, anicteric sclera Mouth: no lip lesion, mucus membranes moist Cardiovascular: S1 S2 irreg. No murmurs, rubs or gallops. Lungs: Decreased BS bilaterally, no accessory muscle use Ext: no gross muscle atrophy, no edema, no contractures Neuro: no focal neuro deficits Psych: Alert, oriented, appropriate affect Based on my assessment of this patient, this patient meets a high complexity level of care. Acute CHF exacerbation with bilateral pleural effusions: Lasix 40 mg IV BID. Monitor renal function and electrolytes. Strict intake and outtake. Daily kadie ghts. Obtain Echo. Cardiology consulted. SIRS: Unknown etiology. Procal negative. Continue Rocephin 1g IV QD and Azithromycin 500 mg PO QD. Sputum and Blood cultures ordered. Telemetry monitoring. Normocytic anemia: Reports of melena. Obtain iron studies. Transfuse if Hg < 7. Stool for occult blood. Lactic acidosis: Trend until negative. DM with hyperglycemia: A1c 6.6. ISS with Accuchecks ACHS and Hypoglycemic precautions. AFib: Eliquis 2.5 mg PO BID. Metoprolol 12.5 mg PO QD. CAD: Metoprolol and Eliquis as above. Pravastatin 20 mg PO QD. HTN: Metoprolol as above. CODE STATUS: FULL CODE DVT Prophylaxis: Eliquis. GI Prophylaxis: Designated medical POA if patient is not able to make medical decisions for themselves: I have reviewed the following technology consultant notes: Cardiology, ED, Pulmonary I have reviewed the results of the following tests: As above. I have ordered the following tests: As above I have discussed the care of this patient with the following independent historian: I have independently interpreted the following test below: CXR I have discussed the management of this patient with the following physician: Past Medical History Past Medical History: Atrial Fibrillation, Coronary Artery Disease (CAD), Diabetes Mellitus, Hypertension Additional Past Surgical History / Comment(s): Heart cath with no stents, has a pacemaker Smoking Status: Never smoker Past Alcohol Use History: Rare Past Drug Use History: None Reported Medications and Allergies Home Medications Medication Instructions Recorded Confirmed Type Apixaban [Eliquis] 5 mg PO BID 12/28/24 12/28/24 History Metoprolol Tartrate [Lopressor] 12.5 mg PO DAILY 12/28/24 12/28/24 History Pravastatin Sodium [Pravachol] 20 mg PO DAILY 12/28/24 12/28/24 History Terazosin HCl 10 mg PO BID 12/28/24 12/28/24 History glyBURIDE/METFORMIN HCL 2 tab PO BID 12/28/24 12/28/24 History [Glucovance 5-500 mg] Allergies Allergy/AdvReac Type Severity Reaction Status Date / Time No Known Allergies Allergy Verified 12/27/24 17:56 Physical Exam Vitals: Vital Signs Temp Pulse Resp BP Pulse Ox 12/28/24 07:56 97.8 F 71 18 117/67 95 12/28/24 06:00 62 16 117/67 94 L 12/28/24 04:00 67 16 117/67 97 12/28/24 02:28 71 18 126/66 97 12/27/24 23:27 69 16 115/59 97 12/27/24 21:09 71 18 12/27/24 21:01 68 18 12/27/24 17:52 97.8 F 88 16 160/71 98 Intake and Output 12/27/24 12/28/24 12/28/24 22:59 06:59 14:59 Output Total 1125 Balance -1125 Output: Urine 1125 Other: Weight 79.379 kg Results CBC & Chem 7: 12/28/24 06:33 12/27/24 18:57 Labs: Abnormal Lab Results - Last 24 Hours (Table) 12/27/24 12/27/24 12/27/24 Range/Units 18:57 18:57 18:57 WBC 21.1 H (3.8-10.6) k/uL RBC 2.77 L (4.30-5.90) m/uL Hgb 8.4 L (13.0-17.5) gm/dL Hct 26.0 L (39.0-53.0) % Neutrophils # 18.5 H (1.3-7.7) k/uL Sodium 135 L (137-145) mmol/L BUN 26 H (9-20) mg/dL Glucose 236 H (74-99) mg/dL Plasma Lactic Acid Flo 3.2 H* (0.7-2.0) mmol/L Total Protein 5.9 L (6.3-8.2) g/dL Albumin 3.1 L (3.5-5.0) g/dL Urine Protein (Negative) Urine Glucose (UA) (Negative) Ur Leukocyte Esterase (Negative) Urine RBC (0-5) /hpf Urine WBC (0-5) /hpf Urine WBC Clumps (None) /hpf Calcium Oxalate Crystal (None) /hpf Hyaline Casts (0-2) /lpf Urine Mucus (None) /hpf 12/27/24 12/27/24 12/28/24 Range/Units 19:50 22:11 06:33 WBC 19.9 H (3.8-10.6) k/uL RBC 2.56 L (4.30-5.90) m/uL Hgb 7.7 L (13.0-17.5) gm/dL Hct 24.0 L (39.0-53.0) % Neutrophils # (1.3-7.7) k/uL Sodium (137-145) mmol/L BUN (9-20) mg/dL Glucose (74-99) mg/dL Plasma Lactic Acid Flo 2.2 H* (0.7-2.0) mmol/L Total Protein (6.3-8.2) g/dL Albumin (3.5-5.0) g/dL Urine Protein Trace H (Negative) Urine Glucose (UA) 4+ H (Negative) Ur Leukocyte Esterase Small H (Negative) Urine RBC 7 H (0-5) /hpf Urine WBC 39 H (0-5) /hpf Urine WBC Clumps Rare H (None) /hpf Calcium Oxalate Crystal Rare H (None) /hpf Hyaline Casts 10 H (0-2) /lpf Urine Mucus Occasional H (None) /hpf
[2024-12-28 17:34] LABS: Glucose,Whole Blood 270 mg/dL (70-110)
[2024-12-28] MEDS: INSULIN ASPART (NovoLOG) 100 UNIT/ML VIAL SQ SCH (18:05)
[2024-12-28 18:50] LABS: % Iron Saturation 6.1 (15.00-50.00)
[2024-12-28 20:59] LABS: Glucose,Whole Blood 154 mg/dL (70-110)
[2024-12-28] MEDS ORDERED: AZITHROMYCIN 500 MG TAB PO SCH (21:00)
[2024-12-28] MEDS: DOXAZOSIN 4 MG TAB PO SCH (21:04)
[2024-12-28] MEDS: AZITHROMYCIN 500 MG TAB PO SCH (21:04)
[2024-12-29 06:20] LABS: Glucose,Whole Blood 135 mg/dL (70-110)
--- NOTE | 2024-12-29 07:19 | XR ---
EXAMINATION TYPE: XR chest 2V DATE OF EXAM: 12/29/2024 7:04 AM COMPARISON: Chest x-ray yesterday and 2 days ago. CLINICAL INDICATION: Male, 84 years old with history of pneumonia, TECHNIQUE: Frontal and lateral views of the chest are obtained. FINDINGS: There is cardiomegaly with dual lead pacemaker and atherosclerotic thoracic aorta redemons trated. Patchy bibasilar opacities redemonstrated. Upper lungs remain clear. Scoliosis is seen. IMPRESSION: Persistent cardiomegaly with small bilateral pleural effusions. Correlate for CHF exacerb ation/fluid overload state. Associated bibasilar opacities favor compressive atelectasis. [facility], , 12/29/2024 7:17 AM
[2024-12-29 07:57] LABS: HCT 26.8 % (39.0-53.0); HGB 8.4 gm/dL (13.0-17.5); MCH 29.3 pg (25.0-35.0); MCHC 31.4 g/dL (31.0-37.0); MCV 93.3 fL (80.0-100.0); Mean Platelet Volume 8.7; Platelet Count 386 k/uL (150-450); RBC 2.88 m/uL (4.30-5.90); RDW 15.1 % (11.5-15.5); WBC 18.8 k/uL (3.8-10.6)
[2024-12-29 08:10] LABS: African American GFR (CKD) 64 (>60 ml/min/1.73 sqM); Anion Gap 11 mmol/L; Blood Urea Nitrogen 21 mg/dL (9-20); Calcium 8.8 mg/dL (8.4-10.2); Carbon Dioxide 27 mmol/L (22-30); Chloride 98 mmol/L (98-107); Glucose 123 mg/dL (74-99); Magnesium 1.9 mg/dL (1.6-2.3); Non-African American GFR(CKD) 55 (>60 ml/min/1.73 sqM); Potassium 3.9 mmol/L (3.5-5.1); Sodium 136 mmol/L (137-145)
[2024-12-29] MEDS ORDERED: METOPROLOL TARTRATE 12.5 MG TAB PO SCH (09:00)
[2024-12-29] MEDS ORDERED: ENOXAPARIN 40 MG/0.4 ML SYRINGE SQ SCH (09:00)
[2024-12-29] MEDS: DAPAGLIFLOZIN PROPANEDIOL 10 MG TABLET PO SCH (09:21)
[2024-12-29] MEDS: PRAVASTATIN SODIUM 20 MG TAB PO SCH (09:21)
[2024-12-29] MEDS: METOPROLOL SUCCINATE (ER) 25 MG TAB.ER.24H PO STA (09:22)
[2024-12-29] MEDS: TORSEMIDE 20 MG TAB PO SCH (09:28)
[2024-12-29 11:41] LABS: Glucose,Whole Blood 255 mg/dL (70-110)
[2024-12-29] MEDS: FERROUS SULFATE 325 MG TAB PO SCH (12:12)
--- NOTE | 2024-12-29 13:06 | P.PN ---
Subjective Progress Note Date: 12/29/24 HISTORY OF PRESENTING ILLNESS: Patient is a 84-year-old male with past medical history of atrial fibrillation, PPM, type 2 diabetes. He presented to the hospital because of increased worsening shortness of breath along with minimal exertion which was progressively getting worse. Cardiology was consulted because of mild elevated NT proBNP and prior history of atrial fibrillation. Diagostics: Admission Labs: Leukocytosis WBC 19.9, anemia hemoglobin 7.7, elevated lactate of 2.2, troponin negative at 0.02, creatinine 1.18, glucose 236, NT-proBNP 1790 Admission EKG: Atrial paced V sensed rhythm Cardio relavant imaging: Chest x-ray shows possible right lower lobe infiltrates consistent with pneumonia. 12/29 Patient seen and examined. She states that her shortness of breath is better. No lower extremity edema. Blood pressure 90/53, heart rate 70, pulse ox 99% on room air. Telemetry sinus rhythm/paced rhythm. Repeat blood work reveals hemoglobin 8.4, BUN 21 creatinine 1.19. Chest x-ray reveals persistent cardiomegaly with small bilateral pleural effusions. Correlate for CHF exacerbation or fluid overload state. Associated bibasilar opacities favor compressive atelectasis. A1c 6.6. TSH 1.85. Triglycerides 88, cholesterol 121, LDL 73. Procalcitonin 0.14. Echocardiogram report is pending. PHYSICAL EXAMINATION: Neck: Brisk carotid upstroke, no jugular venous distention. Lungs: Clear to auscultation. Heart: Irregular pulses, S1-S2, , no murmur or rub. Abdomen: Soft nontender, positive bowel sounds. Extremities: No edema, intact distal pulses. Neuro: Alert, oritented, no focal deficits. Detailed neuro exam was not performed. ASSESSMENT: # Acute hypoxic respiratory failure # Sepsis with pneumonia # History of paroxysmal atrial fibrillation # History of PPM # Lactic acidosis # Elevated NT proBNP however less likely congestive heart failure from physical examination. PLAN: Obtain echocardiogram report Transition IV Lasix to oral Demadex 10 mg daily starting this morning Increase beta-lam to Toprol 25 mg daily Start patient on Eliquis 2.5 mg twice daily and discontinue Lovenox Nurse practitioner note has been reviewed, I agree with documented findings and plan of care. Patient was seen and examined. Objective - Vital Signs Vital signs: Vital Signs Temp 97.5 F L 12/29/24 07:48 Pulse 81 02/11/25 07:48 Resp 16 12/29/24 07:48 BP 123/72 12/29/24 07:48 Pulse Ox 98 12/29/24 07:48 FiO2 Intake & Output 12/28/24 12/29/24 12/29/24 18:59 06:59 18:59 Output Total 900 700 Balance -900 -700 Weight 80 kg Output: Urine 900 700 Other: Voiding Method Urinal - Labs CBC & Chem 7: 12/29/24 07:12 12/29/24 07:12 Labs: Abnormal Lab Results - Last 24 Hours (Table) 12/28/24 12/28/24 12/28/24 Range/Units 06:11 06:33 06:33 WBC (3.8-10.6) k/uL RBC (4.30-5.90) m/uL Hgb (13.0-17.5) gm/dL Hct (39.0-53.0) % POC Glucose (mg/dL) (70-110) mg/dL Hemoglobin A1c 6.6 H (<=6.0) % Iron 13 L (65-175) UG/DL TIBC 213 L (228-460) UG/DL % Saturation 6.10 L (15.00-50.00) Transferrin 152.0 L (204.0-354.0) mg/dL HDL Cholesterol 30.30 L (40.00-60.00) mg/dL 12/28/24 12/28/24 12/29/24 Range/Units 17:32 20:54 06:17 WBC (3.8-10.6) k/uL RBC (4.30-5.90) m/uL Hgb (13.0-17.5) gm/dL Hct (39.0-53.0) % POC Glucose (mg/dL) 270 H 154 H 135 H (70-110) mg/dL Hemoglobin A1c (<=6.0) % Iron (65-175) UG/DL TIBC (228-460) UG/DL % Saturation (15.00-50.00) Transferrin (204.0-354.0) mg/dL HDL Cholesterol (40.00-60.00) mg/dL 12/29/24 Range/Units 07:12 WBC 18.8 H (3.8-10.6) k/uL RBC 2.88 L (4.30-5.90) m/uL Hgb 8.4 L (13.0-17.5) gm/dL Hct 26.8 L (39.0-53.0) % POC Glucose (mg/dL) (70-110) mg/dL Hemoglobin A1c (<=6.0) % Iron (65-175) UG/DL TIBC (228-460) UG/DL % Saturation (15.00-50.00) Transferrin (204.0-354.0) mg/dL HDL Cholesterol (40.00-60.00) mg/dL Microbiology - Last 24 Hours (Table) 12/27/24 19:53 Blood Culture - Preliminary Blood
--- NOTE | 2024-12-29 13:09 | P.PN ---
Subjective Progress Note Date: 12/29/24 84 year old M with PMH AFib, pacemaker, DM, CAD, HTN presents to the ED for shortness of breath. Supplemental information obtained from family at bedside as patient is a poor historian. Family reports exertional shortness of breath, fatigue, unsteady gait that has been progressively getting worse over the past month. Family also reports melanotic stools and decreased appetite leading to 30 pound weight loss since May. Patient denies cough, fever or chills, nausea or vomiting, lower extremity edema, changes in urination. In the ED he underwent extensive evaluation. BP 160/71, HR 88, T 97.8F, RR 16, 98% on RA. CBC, Coag panel, CMP significant for WBC 21.1, RBC 2.77, Hg 8.4, Hct 26, Na 135, BUN 26, glu 236, alb 3.1. Lactic acid 3.2. BNP 1790. Trop 0.014, 0.02, 0.02. Procal 0.14. TSH 1.85. UA small LE with 39 WBCs. COVID, RSV, Flu neg. CXR cardiomegaly with small R and trace L pleural effusion. EKG A-Fib with Q waves in the inferior leads. Patient is admitted for further workup and management. 12/29 Patient was seen and examined. Breathing improved but still short of breath. Maintained on Rocephin 2g IV QD and Azithromycin 500 mg PO QD (D2). Cardiology switched Lasix IV to Torsemide. CBC and BMP significant for WBC 18.8, RBC 2.88, Hg 8.4, Hct 26.8, Na 136, BUN 21, glu 123. Mag 1.9. CXR shows bilateral pleural effusion and pulmonary vascular congestion. BCx neg so far. Iron studies Fe 13, % sat 6.1, Ferritin 322. General: non toxic, no distress, appears at stated age Derm: warm, dry Head: atraumatic, normocephalic, symmetric Eyes: EOMI, no lid lag, anicteric sclera Mouth: no lip lesion, mucus membranes moist Cardiovascular: S1 S2 irreg. No murmurs, rubs or gallops. Lungs: Decreased BS bilaterally, no accessory muscle use Ext: no gross muscle atrophy, no edema, no contractures Neuro: no focal neuro deficits Psych: Alert, oriented, appropriate affect Based on my assessment of this patient, this patient meets a high complexity level of care. Acute CHF exacerbation with bilateral pleural effusions: Lasix 40 mg IV BID to Torsemide 10 mg PO QD. Monitor renal function and electrolytes. Strict intake and outtake. Daily weights. Echo pending. Cardiology consulted. SIRS: Unknown etiology. Procal negative. Continue Rocephin 1g IV QD and Azithromycin 500 mg PO QD. Sputum and Blood cultures ordered. Telemetry monitoring. Iron def anemia: Reports of melena. Iron studies as above. Restart FeSO4 325 mg PO QD. Transfuse if Hg < 7. Stool for occult blood pending. DM with hyperglycemia: A1c 6.6. ISS with Accuchecks ACHS and Hypoglycemic precautions. AFib: Eliquis 2.5 mg PO BID. Metoprolol 25 mg PO QD. CAD: Metoprolol and Eliquis as above. Pravastatin 20 mg PO QD. HTN: Metoprolol as above. Resolved: Lactic acidosis CODE STATUS: FULL CODE DVT Prophylaxis: Eliquis. GI Prophylaxis: Designated medical POA if patient is not able to make medical decisions for themselves: I have reviewed the following ux consultant notes: I have reviewed the results of the following tests: CBC, BMP, Mag, BCx, Iron studies I have ordered the following tests: Echo, Stool occult, Sputum and BCx pending. I have discussed the care of this patient with the following independent historian: I have independently interpreted the following test below: CXR I have discussed the management of this patient with the following physician: Objective - Vital Signs Vital signs: Vital Signs Temp 97.9 F 12/29/24 11:12 Pulse 70 12/29/24 11:12 Resp 14 12/29/24 11:12 BP 90/53 12/29/24 11:12 Pulse Ox 99 12/29/24 11:12 FiO2 Intake & Output 12/28/24 12/29/24 12/29/24 18:59 06:59 18:59 Intake Total 240 Output Total 900 700 Balance -900 -700 240 Weight 80 kg 80 kg Intake: Oral 240 Output: Urine 900 700 Other: Voiding Method Urinal Urinal - Labs CBC & Chem 7: 12/29/24 07:12 12/29/24 07:12 Labs: Abnormal Lab Results - Last 24 Hours (Table) 12/28/24 12/28/24 12/28/24 Range/Units 06:11 06:33 17:32 WBC (3.8-10.6) k/uL RBC (4.30-5.90) m/uL Hgb (13.0-17.5) gm/dL Hct (39.0-53.0) % Sodium (137-145) mmol/L BUN (9-20) mg/dL Glucose (74-99) mg/dL POC Glucose (mg/dL) 270 H (70-110) mg/dL Iron 13 L (65-175) UG/DL TIBC 213 L (228-460) UG/DL % Saturation 6.10 L (15.00-50.00) Transferrin 152.0 L (204.0-354.0) mg/dL HDL Cholesterol 30.30 L (40.00-60.00) mg/dL 12/28/24 12/29/24 12/29/24 Range/Units 20:54 06:17 07:12 WBC 18.8 H (3.8-10.6) k/uL RBC 2.88 L (4.30-5.90) m/uL Hgb 8.4 L (13.0-17.5) gm/dL Hct 26.8 L (39.0-53.0) % Sodium (137-145) mmol/L BUN (9-20) mg/dL Glucose (74-99) mg/dL POC Glucose (mg/dL) 154 H 135 H (70-110) mg/dL Iron (65-175) UG/DL TIBC (228-460) UG/DL % Saturation (15.00-50.00) Transferrin (204.0-354.0) mg/dL HDL Cholesterol (40.00-60.00) mg/dL 12/29/24 12/29/24 Range/Units 07:12 11:40 WBC (3.8-10.6) k/uL RBC (4.30-5.90) m/uL Hgb (13.0-17.5) gm/dL Hct (39.0-53.0) % Sodium 136 L (137-145) mmol/L BUN 21 H (9-20) mg/dL Glucose 123 H (74-99) mg/dL POC Glucose (mg/dL) 255 H (70-110) mg/dL Iron (65-175) UG/DL TIBC (228-460) UG/DL % Saturation (15.00-50.00) Transferrin (204.0-354.0) mg/dL HDL Cholesterol (40.00-60.00) mg/dL Microbiology - Last 24 Hours (Table) 12/27/24 19:53 Blood Culture - Preliminary Blood
[2024-12-29] MEDS: polyethylene glycoL 3350 17 GM POWD.PACK PO SCH (14:13)
--- NOTE | 2024-12-29 14:35 | P.PN ---
Subjective Progress Note Date: 12/29/24 Principal diagnosis: Shortness of breath. Patient is a 84-year-old male with past medical history significant for atrial fibrillation, permanent pacemaker, diabetes mellitus. His primary care provider is a Dr. Morgan Pierre out of [place]. He is uncertain of the medications that he takes. Patient normally follows in [facility] for his medical needs. States that he has been suffering from shortness of breath that limits his activity, progressively worse over the last year. Workup in the emergency department includes a chest x-ray showing cardiomegaly with small to trace bilateral pleural effusions. NT proBNP elevated at 1790. CBC: WBC count 21.1, hemoglobin 8.4, hematocrit 26, platelets 365. CMP: Sodium 135, potassium 4.1, chloride 100, serum bicarb 26, BUN 26, creatinine 1.18, glucose 236. Lactic was 3.2 and is down to 2.2. Troponins 0.014, 0.02, and 0.02 respectively. EKG: Atrial fibrillation with controlled ventricular response, rate 74 bpm, no acute isch emic changes. Viral screen negative for influenza, RSV, COVID. Patient currently being evaluated in the emergency department. He is resting comfortably in bed on room air oxygen. SpO2 reading 97% on bedside monitor. Shortness of breath is particularly worse with exertion. States that he can no longer perform ADLs without much difficulty. He becomes severely short of breath with exertion such as walking out to the mailbox. Denies pre-existing COPD or asthma. Non-smoker. Denies infectious-like symptoms. Denies history of heart failure. Denies chest pain, heart palpitations, lightheadedness/syncopal events, orthopnea, PND, lower extremity swelling. States he does not take any diuretics; however, he is unsure of his home medications. Reportedly does take Eliquis. Denies any samir blood loss, melena. Vital signs: Afebrile, heart rate 70 bpm, blood pressure 126/66 mmHg, nontachypneic, SpO2 reading 97% on room air. Progress note dated December 29, 2024. 84-year-old male admitted with a primary diagnosis of CHF. Currently, the patient is seen today in room 373. He is sitting at the bed side, in a chair, in no distress. He is not receiving any supplemental oxygen, or IV fluids. He has no specific complaints today. Current laboratory data includes a white count 18.8, hemoglobin 8.4, hematocrit 26.8, and a platelet count of 386,000. Sodium 136, potassium 3.9, chlorides 98, CO2 27, anion gap 11, BUN 21, creatinine 1.19. Glucose is 255. Calcium is 8.8. Magnesium 1.9. Chest x-ray today shows cardiomegaly, with small bilateral pleural effusions. The chest x- ray is most compatible with CHF. Objective - Vital Signs Vital signs: Vital Signs Temp 97.9 F 12/29/24 11:12 Pulse 70 12/29/24 11:12 Resp 14 12/29/24 11:12 BP 90/53 12/29/24 11:12 Pulse Ox 99 12/29/24 11:12 FiO2 Intake & Output 12/28/24 12/29/24 12/29/24 18:59 06:59 18:59 Intake Total 240 Output Total 900 700 300 Balance -900 -700 -60 Weight 80 kg 80 kg Intake: Oral 240 Output: Urine 900 700 300 Other: Voiding Method Urinal Urinal - Exam No acute distress, oriented 3. Currently on room air. HEENT examination is grossly unremarkable. Mucous membranes are moist. No oral lesions. Neck supple. Full range of motion. No adenopathy thyromegaly or neck vein distention. Cardiovascular examination reveals regular rhythm rate. S1-S2 normal. No S3 or S4. No discernible murmur noted. Lungs reveal mostly clear breath sounds. Minimal basilar crackles. No wheezes. No rhonchi. Abdomen soft bowel sounds are heard. No masses or tenderness. Extremities are intact. No cyanosis clubbing or edema. Skin is without rash or lesion. Neurologic examination is brief but nonfocal. - Labs CBC & Chem 7: 12/29/24 07:12 12/29/24 07:12 Labs: Abnormal Lab Results - Last 24 Hours (Table) 12/28/24 12/28/24 12/28/24 Range/Units 06:11 06:33 17:32 WBC (3.8-10.6) k/uL RBC (4.30-5.90) m/uL Hgb (13.0-17.5) gm/dL Hct (39.0-53.0) % Sodium (137-145) mmol/L BUN (9-20) mg/dL Glucose (74-99) mg/dL POC Glucose (mg/dL) 270 H (70-110) mg/dL Iron 13 L (65-175) UG/DL TIBC 213 L (228-460) UG/DL % Saturation 6.10 L (15.00-50.00) Transferrin 152.0 L (204.0-354.0) mg/dL HDL Cholesterol 30.30 L (40.00-60.00) mg/dL 12/28/24 12/29/24 12/29/24 Range/Units 20:54 06:17 07:12 WBC 18.8 H (3.8-10.6) k/uL RBC 2.88 L (4.30-5.90) m/uL Hgb 8.4 L (13.0-17.5) gm/dL Hct 26.8 L (39.0-53.0) % Sodium (137-145) mmol/L BUN (9-20) mg/dL Glucose (74-99) mg/dL POC Glucose (mg/dL) 154 H 135 H (70-110) mg/dL Iron (65-175) UG/DL TIBC (228-460) UG/DL % Saturation (15.00-50.00) Transferrin (204.0-354.0) mg/dL HDL Cholesterol (40.00-60.00) mg/dL 12/29/24 12/29/24 Range/Units 07:12 11:40 WBC (3.8-10.6) k/uL RBC (4.30-5.90) m/uL Hgb (13.0-17.5) gm/dL Hct (39.0-53.0) % Sodium 136 L (137-145) mmol/L BUN 21 H (9-20) mg/dL Glucose 123 H (74-99) mg/dL POC Glucose (mg/dL) 255 H (70-110) mg/dL Iron (65-175) UG/DL TIBC (228-460) UG/DL % Saturation (15.00-50.00) Transferrin (204.0-354.0) mg/dL HDL Cholesterol (40.00-60.00) mg/dL Microbiology - Last 24 Hours (Table) 12/27/24 19:53 Blood Culture - Preliminary Blood Assessment and Plan Assessment: Suspect acute CHF exacerbation, unknown type. Acute on chronic dyspnea, chest x-ray showing cardiomegaly with small to trace bilateral pleural effusions. Acute leukocytosis. Normocytic, normochromic anemia. Atrial fibrillation with controlled ventricular response. Permanent pacemaker. History of hypertension. Diabetes mellitus type 2. Plan: Plan dated December 29, 2024. The patient is seen today in room 373. Currently, the patient is on room air. He is not receiving any IV fluids. His most recent chest x-ray consistent with cardiomegaly, mild fluid overload. Labs, x-rays, and all medications are reviewed. The patient is a DO NOT RESUSCITATE patient. We will continue to follow the patient, make recommendations along the way. 50 minutes was spent with this patient, including the interview process, examination, review of pertinent labs, x-rays, medications, as well as discussing the diagnosis, treatment, and prognosis, with the patient, and the patient's bedside nurse. Time with Patient: Greater than 30
--- NOTE | 2024-12-29 14:48 | CA ---
Transthoracic Echo Report Name: Cassandra Campos Age: 84 Gender: M : 1940 Exam Date: 12/28/2024 10:42 Exam Location: [facility] Ht (in): 70 Wt (lb): 175 Ordering Physician: Rashel Traore DO Attending/Referring Phys: [id number], Eugenie Customer Care Consultant Arron Carter, RDCARY Procedure CPT: Indications: Heart failure Cardiac Hx: pacemaker Technical Quality: Good Contrast 1: Total Dose (mL): Contrast 2: Total Dose (mL): MEASUREMENTS (Male / Female) Normal Values 2D ECHO LV Diastolic Diameter PLAX 6.6 cm 4.2 - 5.9 / 3.9 - 5.3 cm LV Systolic Diameter PLAX 4.5 cm IVS Diastolic Thickness 1.1 cm 0.6 - 1.0 / 0.6 - 0.9 cm LVPW Diastolic Thickness 1.1 cm 0.6 - 1.0 / 0.6 - 0.9 cm LV Relative Wall Thickness 0.3 RV Internal Dim ED PLAX 3.4 cm LVOT Diameter 1.9 cm LA Systolic Diameter LX 4.8 cm 3.0 - 4.0 / 2.7 - 3.8 cm LA Volume 59.9 cm??? 18 - 58 / 22 - 52 cm??? LA Volume Index 30.1 cm???/m??? 16 - 28 cm???/m??? DOPPLER AI Peak Velocity 428.0 cm/s AI Peak Gradient 73.3 mmHg AI Pressure Half Time 579.7 ms MV Area PHT 2.8 cm??? Mitral E Point Velocity 48.6 cm/s Mitral A Point Velocity 72.9 cm/s Mitral E to A Ratio 0.7 MV Deceleration Time 274.2 ms TR Peak Velocity 280.8 cm/s TR Peak Gradient 31.5 mmHg Right Atrial Pressure 10.0 mmHg Pulmonary Artery Systolic Pressu 41.5 mmHg Right Ventricular Systolic Press 41.5 mmHg FINDINGS Left Ventricle Left ventricular ejection fraction is estimated at 55-60 %. Moderately increased left ventricular diastolic diameter. Right Ventricle Mild right ventricular dilatation. Mild pulmonary hypertension. Right Atrium Mild right atrial dilatation. Left Atrium Moderately increased left atrial diameter. Mildly increased left atrial volume. Mitral Valve Mitral valve thickened. No mitral stenosis. Trace to mild mitral regurgitation. Aortic Valve Trileaflet aortic valve. Diffuse thickening (sclerosis) of the aortic valve cusps without reduce excursion. No aortic stenosis. Mild aortic regurgitation. Tricuspid Valve Structurally normal tricuspid valve. Mild tricuspid regurgitation. Pulmonic Valve Pulmonic valve not well visualized. No pulmonic regurgitation. No pulmonic stenosis. Pericardium Large pericardial effusion. Aorta Mildly dilated aortic annulus. CONCLUSIONS Diagnosis shortness of breath, heart failure 2D echo shows preserved LV systolic function Moderate pericardial effusion which appears to be chronic and is associated with a thickened pericardium and fibrinous/exudative material on the surface of the anterior RV wall consistent with a chronic effusion Previewed by: Dr. Brodie Keith MD (Electronically Signed) Final Date: 29 December 2024 14:47
[2024-12-29 16:35] LABS: Glucose,Whole Blood 264 mg/dL (70-110)
[2024-12-29 20:18] LABS: Glucose,Whole Blood 152 mg/dL (70-110)
[2024-12-30 06:07] LABS: Glucose,Whole Blood 148 mg/dL (70-110)
[2024-12-30] MEDS ORDERED: TORSEMIDE 20 MG TAB PO SCH (09:00)
[2024-12-30] MEDS: METOPROLOL SUCCINATE (ER) 25 MG TAB.ER.24H PO SCH (10:18)
[2024-12-30 10:39] LABS: HCT 27.4 % (39.0-53.0); HGB 8.6 gm/dL (13.0-17.5); Hypochromasia Moderate; MCH 30.1 pg (25.0-35.0); MCHC 31.4 g/dL (31.0-37.0); MCV 95.9 fL (80.0-100.0); Mean Platelet Volume 7.8; Platelet Count 384 k/uL (150-450); RBC 2.86 m/uL (4.30-5.90); RDW 14.6 % (11.5-15.5); WBC 19.4 k/uL (3.8-10.6)
[2024-12-30 11:13] LABS: African American GFR (CKD) 61 (>60 ml/min/1.73 sqM); Anion Gap 8 mmol/L; Blood Urea Nitrogen 24 mg/dL (9-20); Calcium 8.8 mg/dL (8.4-10.2); Carbon Dioxide 26 mmol/L (22-30); Chloride 97 mmol/L (98-107); Glucose 245 mg/dL (74-99); Non-African American GFR(CKD) 53 (>60 ml/min/1.73 sqM); Potassium 4.5 mmol/L (3.5-5.1); Sodium 131 mmol/L (137-145)
[2024-12-30 11:46] LABS: Glucose,Whole Blood 294 mg/dL (70-110)
[2024-12-30] MEDS: SODIUM FERRIC GLUCONAT-SUCROSE 125 MG in SODIUM CHLORIDE 0.9% 100 ML IVPB SCH (12:45)
--- NOTE | 2024-12-30 14:24 | P.PN ---
Subjective Progress Note Date: 12/30/24 HISTORY OF PRESENTING ILLNESS: Patient is a 84-year-old male with past medical history of atrial fibrillation, PPM, type 2 diabetes. He presented to the hospital because of increased worsening shortness of breath along with minimal exertion which was progressively getting worse. Cardiology was consulted because of mild elevated NT proBNP and prior history of atrial fibrillation. Diagostics: Admission Labs: Leukocytosis WBC 19.9, anemia hemoglobin 7.7, elevated lactate of 2.2, troponin negative at 0.02, creatinine 1.18, glucose 236, NT-proBNP 1790 Admission EKG: Atrial paced V sensed rhythm Cardio relavant imaging: Chest x-ray shows possible right lower lobe infiltrates consistent with pneumonia. 12/29 Patient seen and examined. She states that her shortness of breath is better. No lower extremity edema. Blood pressure 90/53, heart rate 70, pulse ox 99% on room air. Telemetry sinus rhythm/paced rhythm. Repeat blood work reveals hemoglobin 8.4, BUN 21 creatinine 1.19. Chest x-ray reveals persistent cardiomegaly with small bilateral pleural effusions. Correlate for CHF exacerbation or fluid overload state. Associated bibasilar opacities favor compressive atelectasis. A1c 6.6. TSH 1.85. Triglycerides 88, cholesterol 121, LDL 73. Procalcitonin 0.14. Echocardiogram report is pending. 12/30 Patient is seen and examined. He is doing well today. Echocardiogram reveals EF of 55 to 60%, moderate pericardial effusion which appears to be chronic with thickened pericardium and fibrinous exudative material on the surface of the anterior RV wall consistent with chronic effusion. All information including the results of testing have been reviewed with the patient, his family at the bedside as well as his grandson over the phone. Patient does not require For the pericardial effusion. Patient's blood pressure is on the lower side but seems to have no symptoms from that. Patient states he is eating okay. He denies chest pain. Anemia seems to be chronic. Blood pressure 98/55, heart rate 80, pulse ox 97% on room air. Repeat blood work reveals hemoglobin 8.6, WBC 19.4, BUN 24 creatinine 1.24, sodium 131, potassium 4.5. PHYSICAL EXAMINATION: Neck: Brisk carotid upstroke, no jugular venous distention. Lungs: Clear to auscultation. Heart: Irregular pulses, S1-S2, , no murmur or rub. Abdomen: Soft nontender, positive bowel sounds. Extremities: No edema, intact distal pulses. Neuro: Alert, oritented, no focal deficits. Detailed neuro exam was not performed. ASSESSMENT: # Acute hypoxic respiratory failure # Sepsis with pneumonia # History of paroxysmal atrial fibrillation # History of PPM # Lactic acidosis # Elevated NT proBNP however less likely congestive heart failure from physical examination. Chronic pericardial effusion Persistent leukocytosis PLAN: Continue patient on Eliquis 2.5 mg twice daily, Farxiga 10 mg daily Continue Toprol XL 25 mg daily Continue torsemide 10 mg daily, plan to continue at the time of discharge for about 1 month Plan to continue monitoring patient overnight and most likely will be cleared for discharge tomorrow from a cardiology perspective. Nurse practitioner note has been reviewed, I agree with documented findings and plan of care. Patient was seen and examined. Objective - Vital Signs Vital signs: Vital Signs Temp 97.9 F 12/30/24 08:12 Pulse 80 12/30/24 08:12 Resp 12 12/30/24 08:12 BP 98/55 12/30/24 08:39 Pulse Ox 97 12/30/24 08:12 FiO2 Intake & Output 12/29/24 12/30/24 12/30/24 18:59 06:59 18:59 Intake Total 730 20 Output Total 650 175 Balance 80 -155 Weight 80 kg 74.3 kg Intake: IV 10 20 Invasive Line 1 10 20 Oral 720 Output: Urine 650 175 Other: Voiding Method Urinal Urinal - Labs CBC & Chem 7: 12/30/24 10:07 12/30/24 10:07 Labs: Abnormal Lab Results - Last 24 Hours (Table) 12/29/24 12/29/24 12/29/24 Range/Units 11:40 16:33 20:16 POC Glucose (mg/dL) 255 H 264 H 152 H (70-110) mg/dL 12/30/24 Range/Units 06:05 POC Glucose (mg/dL) 148 H (70-110) mg/dL Microbiology - Last 24 Hours (Table) 12/27/24 19:53 Blood Culture - Preliminary Blood
--- NOTE | 2024-12-30 14:44 | P.PN ---
Subjective Progress Note Date: 12/30/24 Principal diagnosis: Shortness of breath. Patient is a 84-year-old male with past medical history significant for atrial fibrillation, permanent pacemaker, diabetes mellitus. His primary care provider is a Dr. Morgan Pierre out of [place]. He is uncertain of the medications that he takes. Patient normally follows in [facility] for his medical needs. States that he has been suffering from shortness of breath that limits his activity, progressively worse over the last year. Workup in the emergency department includes a chest x-ray showing cardiomegaly with small to trace bilateral pleural effusions. NT proBNP elevated at 1790. CBC: WBC count 21.1, hemoglobin 8.4, hematocrit 26, platelets 365. CMP: Sodium 135, potassium 4.1, chloride 100, serum bicarb 26, BUN 26, creatinine 1.18, glucose 236. Lactic was 3.2 and is down to 2.2. Troponins 0.014, 0.02, and 0.02 respectively. EKG: Atrial fibrillation with controlled ventricular response, rate 74 bpm, no acute isch emic changes. Viral screen negative for influenza, RSV, COVID. Patient currently being evaluated in the emergency department. He is resting comfortably in bed on room air oxygen. SpO2 reading 97% on bedside monitor. Shortness of breath is particularly worse with exertion. States that he can no longer perform ADLs without much difficulty. He becomes severely short of breath with exertion such as walking out to the mailbox. Denies pre-existing COPD or asthma. Non-smoker. Denies infectious-like symptoms. Denies history of heart failure. Denies chest pain, heart palpitations, lightheadedness/syncopal events, orthopnea, PND, lower extremity swelling. States he does not take any diuretics; however, he is unsure of his home medications. Reportedly does take Eliquis. Denies any samir blood loss, melena. Vital signs: Afebrile, heart rate 70 bpm, blood pressure 126/66 mmHg, nontachypneic, SpO2 reading 97% on room air. Progress note dated December 29, 2024. 84-year-old male admitted with a primary diagnosis of CHF. Currently, the patient is seen today in room 373. He is sitting at the bed side, in a chair, in no distress. He is not receiving any supplemental oxygen, or IV fluids. He has no specific complaints today. Current laboratory data includes a white count 18.8, hemoglobin 8.4, hematocrit 26.8, and a platelet count of 386,000. Sodium 136, potassium 3.9, chlorides 98, CO2 27, anion gap 11, BUN 21, creatinine 1.19. Glucose is 255. Calcium is 8.8. Magnesium 1.9. Chest x-ray today shows cardiomegaly, with small bilateral pleural effusions. The chest x- ray is most compatible with CHF. Progress note dated December 30, 2024. 84-year-old male seen today in room 373. The patient is currently on room air. He is not receiving any IV fluids. He is a DO NOT RESUSCITATE patient. Rocephin will be discontinued. His procalcitonin level was 0.14. He has been seen by cardiology. He was admitted primarily with a diagnosis of CHF. White count 19.4, hemoglobin 8.6, hematocrit 27.4, and platelet count 384,000. Sodium 131, potassium 4.5, chlorides 97, CO2 26, BUN 24, and creatinine 1.24. Glucose is 294. Calcium is 8.8. Objective - Vital Signs Vital signs: Vital Signs Temp 97.9 F 12/30/24 11:27 Pulse 93 12/30/24 11:27 Resp 16 12/30/24 11:27 BP 97/61 12/30/24 11:27 Pulse Ox 99 12/30/24 11:27 FiO2 Intake & Output 12/29/24 12/30/24 12/30/24 18:59 06:59 18:59 Intake Total 730 20 128 Output Total 650 175 Balance 80 -155 128 Weight 80 kg 74.3 kg Intake: IV 10 20 10 Invasive Line 1 10 20 10 Oral 720 118 Output: Urine 650 175 Other: Voiding Method Urinal Urinal - Exam No acute distress, oriented 3. Currently on room air. HEENT examination is grossly unremarkable. Mucous membranes are moist. No oral lesions. Neck supple. Full range of motion. No adenopathy thyromegaly or neck vein distention. Cardiovascular examination reveals regular rhythm rate. S1-S2 normal. No S3 or S4. No discernible murmur noted. Lungs reveal mostly clear breath sounds. Minimal basilar crackles. No wheezes. No rhonchi. Abdomen soft bowel sounds are heard. No masses or tenderness. Extremities are intact. No cyanosis clubbing or edema. Skin is without rash or lesion. Neurologic examination is brief but nonfocal. - Labs CBC & Chem 7: 12/30/24 10:07 12/30/24 10:07 Labs: Abnormal Lab Results - Last 24 Hours (Table) 12/29/24 12/29/24 12/30/24 Range/Units 16:33 20:16 06:05 WBC (3.8-10.6) k/uL RBC (4.30-5.90) m/uL Hgb (13.0-17.5) gm/dL Hct (39.0-53.0) % Sodium (137-145) mmol/L Chloride (98-107) mmol/L BUN (9-20) mg/dL Glucose (74-99) mg/dL POC Glucose (mg/dL) 264 H 152 H 148 H (70-110) mg/dL 12/30/24 12/30/24 12/30/24 Range/Units 10:07 10:07 11:44 WBC 19.4 H (3.8-10.6) k/uL RBC 2.86 L (4.30-5.90) m/uL Hgb 8.6 L (13.0-17.5) gm/dL Hct 27.4 L (39.0-53.0) % Sodium 131 L (137-145) mmol/L Chloride 97 L (98-107) mmol/L BUN 24 H (9-20) mg/dL Glucose 245 H (74-99) mg/dL POC Glucose (mg/dL) 294 H (70-110) mg/dL Microbiology - Last 24 Hours (Table) 12/27/24 19:53 Blood Culture - Preliminary Blood Assessment and Plan Assessment: Suspect acute CHF exacerbation, unknown type. Acute on chronic dyspnea, chest x-ray showing cardiomegaly with small to trace bilateral pleural effusions. Acute leukocytosis. Normocytic, normochromic anemia. Atrial fibrillation with controlled ventricular response. Permanent pacemaker. History of hypertension. Diabetes mellitus type 2. Plan: Plan dated December 29, 2024. The patient is seen today in room 373. Currently, the patient is on room air. He is not receiving any IV fluids. His most recent chest x-ray consistent with cardiomegaly, mild fluid overload. Labs, x-rays, and all medications are reviewed. The patient is a DO NOT RESUSCITATE patient. We will continue to follow the patient, make recommendations along the way. 50 minutes was spent with this patient, including the interview process, examination, review of pertinent labs, x-rays, medications, as well as discussing the diagnosis, treatment, and prognosis, with the patient, and the patient's bedside nurse. Plan dated December 30, 2024. The patient is seen today in room 373. The patient is currently on room air. Is not receiving any IV fluids. Chest x-ray from the , shows evidence of fluid overload, with cardiomegaly. Labs, x-rays, and all medications are reviewed. The patient is a DO NOT RESUSCITATE patient. 50 minutes was spent with the patient, including the process of interviewing him, examining him, reviewing pertinent laboratory data, x-rays, and medications, as well as discussing the diagnosis, treatment, and prognosis, with the patient, and the patient's bedside nurse. Time with Patient: Greater than 30
--- NOTE | 2024-12-30 14:54 | P.PN ---
Subjective Progress Note Date: 12/30/24 84 year old M with PMH AFib, pacemaker, DM, CAD, HTN presents to the ED for shortness of breath. Supplemental information obtained from family at bedside as patient is a poor historian. Family reports exertional shortness of breath, fatigue, unsteady gait that has been progressively getting worse over the past month. Family also reports melanotic stools and decreased appetite leading to 30 pound weight loss since May. Patient denies cough, fever or chills, nausea or vomiting, lower extremity edema, changes in urination. In the ED he underwent extensive evaluation. BP 160/71, HR 88, T 97.8F, RR 16, 98% on RA. CBC, Coag panel, CMP significant for WBC 21.1, RBC 2.77, Hg 8.4, Hct 26, Na 135, BUN 26, glu 236, alb 3.1. Lactic acid 3.2. BNP 1790. Trop 0.014, 0.02, 0.02. Procal 0.14. TSH 1.85. UA small LE with 39 WBCs. COVID, RSV, Flu neg. CXR cardiomegaly with small R and trace L pleural effusion. EKG A-Fib with Q waves in the inferior leads. Patient is admitted for further workup and management. 12/29 Patient was seen and examined. Breathing improved but still short of breath. Maintained on Rocephin 2g IV QD and Azithromycin 500 mg PO QD (D2). Cardiology switched Lasix IV to Torsemide. CBC and BMP significant for WBC 18.8, RBC 2.88, Hg 8.4, Hct 26.8, Na 136, BUN 21, glu 123. Mag 1.9. CXR shows bilateral pleural effusion and pulmonary vascular congestion. BCx neg so far. Iron studies Fe 13, % sat 6.1, Ferritin 322. 12/30 Patient was seen and examined. Still shortness of breath with ambulation. Antibiotics discontinued by Pulmonary. Cardiology recommends Torsemide and monitoring overnight with hopeful discharge in the AM. Echo shows EF 55-60% with diastolic dysfunction and moderate pericardial effusion. CBC and BMP significant for WBC 19.4, RBC 2.86, Hg 8.6, Hct 27.4, Na 131, Cl 97, BUN 24, glu 245. General: non toxic, no distress, appears at stated age Derm: warm, dry Head: atraumatic, normocephalic, symmetric Eyes: EOMI, no lid lag, anicteric sclera Mouth: no lip lesion, mucus membranes moist Cardiovascular: S1 S2 irreg. No murmurs, rubs or gallops. Lungs: Decreased BS bilaterally, no accessory muscle use Ext: no gross muscle atrophy, no edema, no contractures Neuro: no focal neuro deficits Psych: Alert, oriented, appropriate affect Based on my assessment of this patient, this patient meets a high complexity level of care. Acute CHF exacerbation with bilateral pleural effusions + pericardial effusion: Torsemide 10 mg PO QD. Echo as above. Cardiology on board. SIRS: Unknown etiology. Procal negative. Rocephin and Azithromycin discontinued. Blood culture neg so far. UA small LE with 39 WBCs but asymptomatic. CXR with no concerns of PNA. Telemetry monitoring. Consult Hematology for persistent leukocytosis. Iron def anemia: Reports of melena. Iron studies as above. FeSO4 325 mg PO QD. IV iron added today. Transfuse if Hg < 7. Stool for occult blood pending. DM with hyperglycemia: A1c 6.6. ISS with Accuchecks ACHS and Hypoglycemic precautions. Constipation: Dulcolax suppository today. AFib: Eliquis 2.5 mg PO BID. Metoprolol 25 mg PO QD. CAD: Metoprolol and Eliquis as above. Pravastatin 20 mg PO QD. HTN: Metoprolol as above. Resolved: Lactic acidosis CODE STATUS: FULL CODE DVT Prophylaxis: Eliquis. GI Prophylaxis: Designated medical POA if patient is not able to make medical decisions for themselves: I have reviewed the following it solutions sales consultant notes: Cardio, Pulmonary. I have reviewed the results of the following tests: CBC, BMP, Echo I have ordered the following tests: I have discussed the care of this patient with the following independent his rebecca: Family. I have independently interpreted the following test below: I have discussed the management of this patient with the following physician: Objective - Vital Signs Vital signs: Vital Signs Temp 97.9 F 12/30/24 11:27 Pulse 93 12/30/24 11:27 Resp 16 12/30/24 11:27 BP 97/61 12/30/24 11:27 Pulse Ox 99 12/30/24 11:27 FiO2 Intake & Output 12/29/24 12/30/24 12/30/24 18:59 06:59 18:59 Intake Total 730 20 128 Output Total 650 175 Balance 80 -155 128 Weight 80 kg 74.3 kg Intake: IV 10 20 10 Invasive Line 1 10 20 10 Oral 720 118 Output: Urine 650 175 Other: Voiding Method Urinal Urinal - Labs CBC & Chem 7: 12/30/24 10:07 12/30/24 10:07 Labs: Abnormal Lab Results - Last 24 Hours (Table) 12/29/24 12/29/24 12/30/24 Range/Units 16:33 20:16 06:05 WBC (3.8-10.6) k/uL RBC (4.30-5.90) m/uL Hgb (13.0-17.5) gm/dL Hct (39.0-53.0) % Sodium (137-145) mmol/L Chloride (98-107) mmol/L BUN (9-20) mg/dL Glucose (74-99) mg/dL POC Glucose (mg/dL) 264 H 152 H 148 H (70-110) mg/dL 12/30/24 12/30/24 12/30/24 Range/Units 10:07 10:07 11:44 WBC 19.4 H (3.8-10.6) k/uL RBC 2.86 L (4.30-5.90) m/uL Hgb 8.6 L (13.0-17.5) gm/dL Hct 27.4 L (39.0-53.0) % Sodium 131 L (137-145) mmol/L Chloride 97 L (98-107) mmol/L BUN 24 H (9-20) mg/dL Glucose 245 H (74-99) mg/dL POC Glucose (mg/dL) 294 H (70-110) mg/dL Microbiology - Last 24 Hours (Table) 12/27/24 19:53 Blood Culture - Preliminary Blood
[2024-12-30 16:34] LABS: Glucose,Whole Blood 247 mg/dL (70-110)
--- NOTE | 2024-12-30 17:31 | CDI ---
Documentation Clarification Form Date: 12/30/2024 04:35:54 PM From: Marcela Arroyo RN CCDS Phone: [phone] Admit Date: 12/27/2024 07:51:00 PM Patient Name: Cassandra Campos Visit Number: [id number] Discharge Date: ATTENTION: The Clinical Documentation Specialists (CDI) and [facility] Coding Staff appreciate your assistance in clarifying documentation. Please respond to the clarification below the line at the bottom and electronically sign. The CDI & [facility] Coding staff will review the response and follow-up if needed. Please note: Queries are made part of the Legal Health Record. If you have any questions, please contact the author of this message via ITS. Doctor: Mackenzie Muñoz MD Conflicting documentation has been found in the medical record. As attending physician, please provide clarification. Acute CHF exacerbation with bilateral pleural effusions and pericardial effusion, Medicine Note, 12/30. Elevated NT proBNP however less likely congestive heart failure from physical examination. Cardiology note, 12/30 History/Risk Factors: 84 year old male presents to the ED with exertional shortness of breath , fatigue and unsteady over the last month. Medical history: Afib, CAD and HTN. HP, 12/28 Clinical Indicators: VSS 12/27: B/P 160/71; HR 88; Temp 97.8F Oral, RR 16, SpO2 98% ra BNP 12/27: 1790 EHO, 12/28: 2D echo shows preserved LV systolic function. Moderate pericardial effusion which appears to be chronic and is associated with a thickened pericardium and fibrinous/exudative material on the surface of the anterior RV wall consistent with a chronic effusion. CXR 12/27: Cardiomegaly with small right and trace left pleural effusions CXR 12/28: Persistent cardiomegaly with new patchy bibasilar opacities favoring atelectasis CXR 12/29: Persistent cardiomegaly with small bilateral pleural effusions. Correlate for CHF exacerbation/fluid overload state Treatment: 12/27 12/29 Lasix 40mg IV q12h, 12/29 Farxiga 10mg po daily, 12/30 Demadex 10mg po daily, 12/29 Troprol Xl 25mg po x 1; 12/30 Toprol Xl 25mg po daily Please clarify which diagnosis is most appropriate: [ x ] Acute Diastolic CHF exacerbation [ ] Acute Diastolic CHF ruled out [ ] Other (please specify) [ ] Unable to determine (Template Last Revised: January 2021) MTDD
--- NOTE | 2024-12-30 17:47 | CDI ---
Documentation Clarification Form Date: 12/30/2024 05:32:51 PM From: Marcela Arroyo RN CCDS Phone: [phone] Admit Date: 12/27/2024 07:51:00 PM Patient Name: Cassandra Campos Visit Number: [id number] Discharge Date: ATTENTION: The Clinical Documentation Specialists (CDI) and [facility] Coding Staff appreciate your assistance in clarifying documentation. Please respond to the clarification below the line at the bottom and electronically sign. The CDI & [facility] Coding staff will review the response and follow-up if needed. Please note: Queries are made part of the Legal Health Record. If you have any questions, please contact the author of this message via ITS. Doctor: Mackenzie Muñoz MD SIRS Unknown etiology, , 12/28, which may lack sufficient clinical evidence/support in the medical record. Additional clarification is requested. History/Risk Factors: 84 year old male presents to the ED with exertional shortness of breath, fatigue and unsteady over the last month. Medical history: Afib, CAD and HTN. HP, 12/28 Clinical Indicators: VSS 12/27: B/P 160/71; HR 88; Temp 97.8F Oral, RR 16, SpO2 98% ra Wbc 12/27: 21.1 Treatment: Daily Wbc, Vital signs per protocol Please clarify if [insert diagnosis] is a valid diagnosis? [ x ] No, SIRS is ruled out [ ] Yes, SIRS is present as evidence by (additional clinical support): [ ] Other (please specify diagnosis) [ ] Unable to determine SIRS Criteria: 2 or more of the following may indicate SIRS Temperature < 96.8F (36C) or > 101.0F (38.3C) Heart Rate > 90 bpm Respiratory Rate > 20 breaths/min or PaCO2 < 32 mmHg White Blood Cell Count > 12,000 or < 4,000 cells/mm3 or > 10% bands (Template Last Revised: April 2024) [facility]
--- NOTE | 2024-12-30 18:16 | CDI ---
Documentation Clarification Form Date: 12/30/2024 05:55:24 PM From: Marcela Arroyo RN CCDS Phone: [phone] Admit Date: 12/27/2024 07:51:00 PM Patient Name: Cassandra Campos Visit Number: [id number] Discharge Date: ATTENTION: The Clinical Documentation Specialists (CDI) and [facility] Coding Staff appreciate your assistance in clarifying documentation. Please respond to the clarification below the line at the bottom and electronically sign. The CDI & [facility] Coding staff will review the response and follow-up if needed. Please note: Queries are made part of the Legal Health Record. If you have any questions, please contact the author of this message via ITS. Doctor: Mackenzie Muñoz MD Acute hypoxic respiratory failure. is documented 12/28- 01/04 Cardiology notes which may lack sufficient clinical evidence/support in the medical record. Acute hypoxic respiratory failure is documented by medicine notes 01/01 - 01/04 /Additional clarification is requested. History/Risk Factors: 84 year old male presents to the ED with exertional shortness of breath, fatigue and unsteady over the last month. Medical history: Afib, DM,CAD and HTN. HP, 12/28. Clinical Indicators: VSS 12/27: B/P 160/71; HR 88; Temp 97.8F Oral, RR 16, SpO2 98% ra 12/28 SpO2 95% room air, RR 18 11 SpO2 98% room air, RR 16 12 SpO2: 99% room air RR 16 /10, Pulmonary consult: Acute on chronic dyspnea, chest x-ray showing cardiomegaly with small to trace bilateral pleural effusions. 12/28, Pulmonary Lung exam: Equal air entry, on room air. Treatment: Pulmonology consult see above, Vital signs per protocol Please clarify if Acute hypoxic respiratatory failure is a valid diagnosis? [ x ] No, Acute hypoxic respiratory failure is ruled out [ ] Yes, Acute hypoxic respiratory is present as evidence by (additional clinical support): _hypoxia present on admission [ ] Other (please specify diagnosis) [ ] Unable to determine (Template Last Revised: April 2024) MTDD
[2024-12-30] MEDS: bisacodyL 10 MG SUPP RECTAL STA (18:27)
[2024-12-30 20:06] LABS: Glucose,Whole Blood 139 mg/dL (70-110)
[2024-12-30 22:56] LABS: HCT 24.4 % (39.0-53.0); HGB 7.8 gm/dL (13.0-17.5); Hypochromasia Slight; MCH 29.7 pg (25.0-35.0); MCV 92.9 fL (80.0-100.0); Mean Platelet Volume 7.8; Platelet Count 382 k/uL (150-450); RBC 2.63 m/uL (4.30-5.90); RDW 14.8 % (11.5-15.5); WBC 20.2 k/uL (3.8-10.6)
[2024-12-31 06:05] LABS: Glucose,Whole Blood 165 mg/dL (70-110)
[2024-12-31] MEDS ORDERED: RX INFO: IV CONTRAST WAS GIVEN 1 EACH MISC MISCELLANE PRN (10:25)
[2024-12-31] MEDS: IOPAMIDOL CONTRAST (ORAL USE) VIAL PO PRN (11:32)
[2024-12-31 11:59] LABS: Glucose,Whole Blood 166 mg/dL (70-110)
--- NOTE | 2024-12-31 12:47 | CT ---
EXAMINATION TYPE: CT ChestAbdPelvis w con DATE OF EXAM: 12/31/2024 12:27 PM COMPARISON: None. CLINICAL INDICATION: Male, 84 years old with history of occult +, wt loss; PHH, WEIGHT LOSS Technique: CT ChestAbdPelvis w con; Multiple axial images were obtained. Two-dimensional coronal and sagittal reconstructions were obtained. Contrast used:100 mL of Isovue 300 with IV Contrast, (None if empty) Oral contrast used: with Oral Contrast CT DLP: 1029.9 mGycm, Automated exposure control for dose reduction was used. Findings: CHEST: LUNGS/ PLEURA: Bilateral pleural effusions. No pneumothorax or focal consolidation. AIRWAY: Patent and unremarkable. HEART: Heart is mildly enlarged for size. Moderate coronary artery atherosclerosis. Cardiac conductio n leads in the right atrium and right ventricle. Trace pericardial effusion. MEDIASTINUM: No gross evidence of adenopathy. Prevascular space cysts measuring nearly [place] uni ts. VASCULATURE: No aortic aneurysm. MUSCULOSKELETAL: No acute osseous abnormalities. SOFT TISSUES/LYMPH NODES: Unremarkable. LOWER NECK: No significant findings. ABDOMEN: ABDOMEN LIVER: Unremarkable GALLBLADDER AND BILE DUCTS: Unremarkable. PANCREAS: Unremarkable. SPLEEN: Unremarkable. ADRENAL GLANDS: Unremarkable. KIDNEYS AND URETERS: Right renal mass with soft tissue extending towards the duodenum possibly encasi ng the duodenum/invading into measuring up to 10.6 x 7.4 x 6.9 cm . Simple appearing left renal cyst. PELVIS BLADDER: Unremarkable REPRODUCTIVE: Prostate is enlarged in size measuring 5.3 cm in transverse dimension. ABDOMEN & PELVIS STOMACH AND BOWEL: No evidence of bowel obstruction. The appendix is normal. Scattered colonic divert icula. PERITONEUM/RETROPERITONEUM: No evidence of pneumoperitoneum or free fluid. VASCULATURE: No evidence of aortic aneurysm. MUSCULOSKELETAL: No acute osseous abnormalities LYMPH NODES: No gross evidence for lymphadenopathy. SOFT TISSUE/ABDOMINAL WALL: Fatty changes in the inguinal canals. IMPRESSION: 1. Right renal mass which extends towards the duodenum possibly invades into and partially obstructs the duodenum. Findings most compatible with malignancy such as renal cell carcinoma. 2. Prostatomegaly, correlate with serum PSA. 3. Quantitative diverticulosis. 4. Small pericardial effusion and bilateral pleural effusions. [facility], , 12/31/2024 12:45 PM
--- NOTE | 2024-12-31 13:04 | P.PN ---
Subjective Progress Note Date: 12/31/24 Principal diagnosis: Shortness of breath. Patient is a 84-year-old male with past medical history significant for atrial fibrillation, permanent pacemaker, diabetes mellitus. His primary care provider is a Dr. Morgan Pierre out of [place]. He is uncertain of the medications that he takes. Patient normally follows in [facility] for his medical needs. States that he has been suffering from shortness of breath that limits his activity, progressively worse over the last year. Workup in the emergency department includes a chest x-ray showing cardiomegaly with small to trace bilateral pleural effusions. NT proBNP elevated at 1790. CBC: WBC count 21.1, hemoglobin 8.4, hematocrit 26, platelets 365. CMP: Sodium 135, potassium 4.1, chloride 100, serum bicarb 26, BUN 26, creatinine 1.18, glucose 236. Lactic was 3.2 and is down to 2.2. Troponins 0.014, 0.02, and 0.02 respectively. EKG: Atrial fibrillation with controlled ventricular response, rate 74 bpm, no acute isch emic changes. Viral screen negative for influenza, RSV, COVID. Patient currently being evaluated in the emergency department. He is resting comfortably in bed on room air oxygen. SpO2 reading 97% on bedside monitor. Shortness of breath is particularly worse with exertion. States that he can no longer perform ADLs without much difficulty. He becomes severely short of breath with exertion such as walking out to the mailbox. Denies pre-existing COPD or asthma. Non-smoker. Denies infectious-like symptoms. Denies history of heart failure. Denies chest pain, heart palpitations, lightheadedness/syncopal events, orthopnea, PND, lower extremity swelling. States he does not take any diuretics; however, he is unsure of his home medications. Reportedly does take Eliquis. Denies any samir blood loss, melena. Vital signs: Afebrile, heart rate 70 bpm, blood pressure 126/66 mmHg, nontachypneic, SpO2 reading 97% on room air. Progress note dated December 29, 2024. 84-year-old male admitted with a primary diagnosis of CHF. Currently, the patient is seen today in room 373. He is sitting at the bed side, in a chair, in no distress. He is not receiving any supplemental oxygen, or IV fluids. He has no specific complaints today. Current laboratory data includes a white count 18.8, hemoglobin 8.4, hematocrit 26.8, and a platelet count of 386,000. Sodium 136, potassium 3.9, chlorides 98, CO2 27, anion gap 11, BUN 21, creatinine 1.19. Glucose is 255. Calcium is 8.8. Magnesium 1.9. Chest x-ray today shows cardiomegaly, with small bilateral pleural effusions. The chest x- ray is most compatible with CHF. Progress note dated December 30, 2024. 84-year-old male seen today in room 373. The patient is currently on room air. He is not receiving any IV fluids. He is a DO NOT RESUSCITATE patient. Rocephin will be discontinued. His procalcitonin level was 0.14. He has been seen by cardiology. He was admitted primarily with a diagnosis of CHF. White count 19.4, hemoglobin 8.6, hematocrit 27.4, and platelet count 384,000. Sodium 131, potassium 4.5, chlorides 97, CO2 26, BUN 24, and creatinine 1.24. Glucose is 294. Calcium is 8.8. Progress note dated December 31, 2024. 84-year-old male seen today in room 373. The patient appears to be doing relatively well. He was admitted with a diagnosis of shortness of breath, likely related to congestive heart failure. We do not believe the patient has pneumonia. He is on room air. He is not receiving any IV fluids. No new laboratory data today, other than a glucose of 166. His procalcitonin level, was 0.14. The patient had a CT scan of the chest abdomen pelvis, which shows a right renal mass, which extends towards the duodenum, and possibly invades into the duodenum. The concern here is for renal cell carcinoma. There is an enlarged prostate, diverticular disease, and small pericardial effusion and amy ateral pleural effusions. Objective - Vital Signs Vital signs: Vital Signs Temp 97.8 F 12/31/24 08:29 Pulse 64 12/31/24 08:29 Resp 16 12/31/24 08:29 BP 104/58 12/31/24 08:29 Pulse Ox 99 12/31/24 08:29 FiO2 Intake & Output 12/30/24 12/31/24 12/31/24 18:59 06:59 18:59 Intake Total 468 20 110 Output Total 375 Balance 468 -355 110 Weight 74.5 kg Intake: IV 10 20 10 Invasive Line 1 10 20 10 Oral 458 100 Output: Urine 375 Other: Voiding Method Urinal # Voids 0 # Bowel Movements 1 0 - Exam No acute distress, oriented 3. Currently on room air. HEENT examination is grossly unremarkable. Mucous membranes are moist. No oral lesions. Neck supple. Full range of motion. No adenopathy thyromegaly or neck vein distention. Cardiovascular examination reveals an irregular rhythm and rate. S1-S2 normal. No S3 or S4. No discernible murmur noted. Lungs reveal mostly clear breath sounds. Minimal basilar crackles. No wheezes. No rhonchi. Abdomen soft bowel sounds are heard. No masses or tenderness. Extremities are intact. No cyanosis clubbing or edema. Skin is without rash or lesion. Neurologic examination is brief but nonfocal. - Labs CBC & Chem 7: 12/30/24 22:13 12/30/24 10:07 Labs: Abnormal Lab Results - Last 24 Hours (Table) 12/30/24 12/30/24 12/30/24 Range/Units 16:32 20:04 22:13 WBC 20.2 H (3.8-10.6) k/uL RBC 2.63 L (4.30-5.90) m/uL Hgb 7.8 L (13.0-17.5) gm/dL Hct 24.4 L (39.0-53.0) % POC Glucose (mg/dL) 247 H 139 H (70-110) mg/dL 12/31/24 12/31/24 Range/Units 06:03 11:55 WBC (3.8-10.6) k/uL RBC (4.30-5.90) m/uL Hgb (13.0-17.5) gm/dL Hct (39.0-53.0) % POC Glucose (mg/dL) 165 H 166 H (70-110) mg/dL Microbiology - Last 24 Hours (Table) 12/27/24 19:53 Blood Culture - Preliminary Blood Assessment and Plan Assessment: Suspect acute CHF exacerbation, unknown type. Acute on chronic dyspnea, chest x-ray showing cardiomegaly with small to trace bilateral pleural effusions. Right renal mass, potentially consistent with hypernephroma. Acute leukocytosis. Normocytic, normochromic anemia. Atrial fibrillation with controlled ventricular response. Permanent pacemaker. History of hypertension. Diabetes mellitus type 2. Plan: Plan dated December 29, 2024. The patient is seen today in room 373. Currently, the patient is on room air. He is not receiving any IV fluids. His most recent chest x-ray consistent with cardiomegaly, mild fluid overload. Labs, x-rays, and all medications are reviewed. The patient is a DO NOT RESUSCITATE patient. We will continue to follow the patient, make recommendations along the way. 50 minutes was spent with this patient, including the interview process, examination, review of pertinent labs, x-rays, medications, as well as discussing the diagnosis, treatment, and prognosis, with the patient, and the patient's bedside nurse. Plan dated December 30, 2024. The patient is seen today in room 373. The patient is currently on room air. Is not receiving any IV fluids. Chest x-ray from the , shows evidence of fluid overload, with cardiomegaly. Labs, x-rays, and all medications are reviewed. The patient is a DO NOT RESUSCITATE patient. 50 minutes was spent with the patient, including the process of interviewing him, examining him, reviewing pertinent laboratory data, x-rays, and medications, as well as discussing the diagnosis, treatment, and prognosis, with the patient, and the patient's bedside nurse. Plan dated December 31, 2024. The patient is seen today in room 373. The patient had a CT scan of the abdomen and pelvis, and chest, which revealed a right renal mass, likely consistent with hypernephroma/renal cell cancer. The patient is currently on room air. He is not receiving any IV fluids. His lungs are clear. Cardiac examination reveals an irregular rhythm rate, consistent with atrial fibrillation. We will continue to follow the patient, make recommendations along the way. The patient is a DO NOT RESUSCITATE patient. 50 minutes was spent with the patient, which included taking history, examining the patient, reviewing pertinent laboratory data, x- rays, medications, as well as discussing the diagnosis, treatment and prognosis with the patient, the patient's nursing staff, as well as the patient's family which were in the room. Dictation was produced using [employer]ation software. Please excuse any grammatical, word or spelling errors. Time with Patient: Greater than 30
--- NOTE | 2024-12-31 13:39 | P.GSCN ---
History of Present Illness Consult date: 12/31/24 History of present illness: CHIEF COMPLAINT: Shortness of breath Reason for consult: Stool for occult blood positive HISTORY OF PRESENT ILLNESS: This is a 84-year-old male who presented the hospital with complaints of shortness of breath and found to have evidence of an acute CHF exacerbation. He has been switched from IV Lasix to oral Torsemide. He is also been having black stools. He has had a 30 pound weight loss since May. His stool for occult blood is positive. Hemoglobin 7.8. Family reports that patient has been anemic for the last 2 years and hemoglobin in May was 8.4. Last colonoscopy was about 10 years ago. Per family patient has never had a EGD. Oncology service has ordered a CT scan chest abdomen pelvis due to the occult blood being positive and significant weight loss. PAST MEDICAL HISTORY: Chronic pericardial effusion, atrial fibrillation, diabetes mellitus, coronary disease, hypertension PAST SURGICAL HISTORY: History of pacemaker MEDICATIONS: See below ALLERGIES: See below SOCIAL HISTORY: No illicit drug use. REVIEW OF SYSTEMS: CONSTITUTIONAL: Denies fever or chills. HEENT: Denies blurred vision, vision changes, or eye pain. Denies hemoptysis CARDIOVASCULAR: Denies chest pain or pressure. RESPIRATORY: No shortness of breath. GASTROINTESTINAL: See HPI for pertinent findings HEMATOLOGIC: Denies bleeding disorders. GENITOURINARY: Denies any blood in urine or increased urinary frequency. SKIN: Denies pruitis. Denies rash. PHYSICAL EXAM: VITAL SIGNS: Reviewed GENERAL: Well-developed in no acute distress. ABDOMEN: Soft. Nondistended. Nontender NEUROLOGIC: Sleeping comfortably LABORATORY DATA: WBC 20.2 Hgb 8.4 down to 7.8 platelets 382 Sodium 131 potassium is 4.5 creatinine 1.24 IMAGING: CT scan abdomen pelvis reports right renal mass which extends toward the duodenum possibly invades into and partial obstruction of the duodenum. Findings most compatible with malignancy such as renal cell carcinoma. Prostamegaly. Quantitative diverticulosis. Small pericardial effusion and bilateral pleural effusions. ASSESSMENT: 1. Anemia with stool positive for occult blood and melanotic stools 2. Right renal mass which extends towards the duodenum and possibly invades into and partially obstructs the duodenum noted on abdominal CT scan 3. Unexplained weight loss of 30 pounds 4. Acute CHF exacerbation PLAN: -Consult urology regarding right renal mass -Hold Eliquis -IV Protonix added -Continue to monitor hemoglobin -Continue to monitor for any signs or symptoms of bleeding -Surgical service will continue to follow. No plans for EGD at this time. Physician Program Professional note has been reviewed by physician. Signing provider agrees with the documented findings, assessment, and plan of care. Attestation Patient seen and examined at bedside with daughter at bedside. Presented with chief complaint of shortness of breath. He was found to have 1 dark bowel movement and stool occult is positive. Hemoglobin is 7.8 currently. He is on Eliquis and this has been held. Patient has unexplained weight loss of 30 pounds over the past few months and according to daughter, patient's colonoscopy was possibly greater than 10 years ago. No history of upper endoscopy and no history of gastric ulcers. CT of the abdomen and pelvis was performed with findings compatible with malignancy such as renal cell carcinoma. Secondary to this urology was consulted. At this point, we will await urology recommendations. We will continue to follow. Based on CT findings, unlikely patient will require urgent endoscopy. Noé Rascon DO Past Medical History Past Medical History: Atrial Fibrillation, Coronary Artery Disease (CAD), Diabetes Mellitus, Hypertension History of Any Multi-Drug Resistant Organisms: None Reported Past Surgical History: Heart Catheterization, Pacemaker Additional Past Surgical History / Comment(s): Heart cath with no stents, has a pacemaker Past Anesthesia/Blood Transfusion Reactions: No Reported Reaction Type of Cardiac Device: Unknown Device Placement Date:: unknown Smoking Status: Never smoker Past Alcohol Use History: Rare Past Drug Use History: None Reported Medications and Allergies Home Medications Medication Instructions Recorded Confirmed Type Apixaban [Eliquis] 5 mg PO BID 12/28/24 12/28/24 History Metoprolol Tartrate [Lopressor] 12.5 mg PO DAILY 12/28/24 12/28/24 History Pravastatin Sodium [Pravachol] 20 mg PO DAILY 12/28/24 12/28/24 History Terazosin HCl 10 mg PO BID 12/28/24 12/28/24 History glyBURIDE/METFORMIN HCL 2 tab PO BID 12/28/24 12/28/24 History [Glucovance 5-500 mg] Sacubitril/Valsartan [Entresto 24 24 - 26 each PO BID 12/29/24 12/29/24 History mg-26 mg Tablet] Allergies Allergy/AdvReac Type Severity Reaction Status Date / Time No Known Allergies Allergy Verified 12/27/24 17:56 Surgical - Exam Osteopathic Statement: *. No significant issues noted on an osteopathic structural exam other than those noted in the History and Physical/Consult. Vital Signs Temp Pulse Resp BP Pulse Ox 97.8 F 88 16 160/71 98 12/27/24 17:52 12/27/24 17:52 12/27/24 17:52 12/27/24 17:52 12/27/24 17:52 Results - Labs 12/30/24 22:13 12/30/24 10:07 Abnormal Lab Results - Last 24 Hours (Table) 12/30/24 12/30/24 12/30/24 Range/Units 16:32 20:04 22:13 WBC 20.2 H (3.8-10.6) k/uL RBC 2.63 L (4.30-5.90) m/uL Hgb 7.8 L (13.0-17.5) gm/dL Hct 24.4 L (39.0-53.0) % POC Glucose (mg/dL) 247 H 139 H (70-110) mg/dL 12/31/24 12/31/24 Range/Units 06:03 11:55 WBC (3.8-10.6) k/uL RBC (4.30-5.90) m/uL Hgb (13.0-17.5) gm/dL Hct (39.0-53.0) % POC Glucose (mg/dL) 165 H 166 H (70-110) mg/dL Microbiology - Last 24 Hours (Table) 12/27/24 19:53 Blood Culture - Preliminary Blood
[2024-12-31] MEDS: PANTOPRAZOLE 40 MG/10 ML VIAL IVP SCH (13:46)
--- NOTE | 2024-12-31 14:54 | P.PN ---
Subjective Progress Note Date: 12/31/24 HISTORY OF PRESENTING ILLNESS: Patient is a 84-year-old male with past medical history of atrial fibrillation, PPM, type 2 diabetes. He presented to the hospital because of increased worsening shortness of breath along with minimal exertion which was progressively getting worse. Cardiology was consulted because of mild elevated NT proBNP and prior history of atrial fibrillation. Diagostics: Admission Labs: Leukocytosis WBC 19.9, anemia hemoglobin 7.7, elevated lactate of 2.2, troponin negative at 0.02, creatinine 1.18, glucose 236, NT-proBNP 1790 Admission EKG: Atrial paced V sensed rhythm Cardio relavant imaging: Chest x-ray shows possible right lower lobe infiltrates consistent with pneumonia. 12/29 Patient seen and examined. She states that her shortness of breath is better. No lower extremity edema. Blood pressure 90/53, heart rate 70, pulse ox 99% on room air. Telemetry sinus rhythm/paced rhythm. Repeat blood work reveals hemoglobin 8.4, BUN 21 creatinine 1.19. Chest x-ray reveals persistent cardiomegaly with small bilateral pleural effusions. Correlate for CHF exacerbation or fluid overload state. Associated bibasilar opacities favor compressive atelectasis. A1c 6.6. TSH 1.85. Triglycerides 88, cholesterol 121, LDL 73. Procalcitonin 0.14. Echocardiogram report is pending. 12/30 Patient is seen and examined. He is doing well today. Echocardiogram reveals EF of 55 to 60%, moderate pericardial effusion which appears to be chronic with thickened pericardium and fibrinous exudative material on the surface of the anterior RV wall consistent with chronic effusion. All information including the results of testing have been reviewed with the patient, his family at the bedside as well as his grandson over the phone. Patient does not require For the pericardial effusion. Patient's blood pressure is on the lower side but seems to have no symptoms from that. Patient states he is eating okay. He denies chest pain. Anemia seems to be chronic. Blood pressure 98/55, heart rate 80, pulse ox 97% on room air. Repeat blood work reveals hemoglobin 8.6, WBC 19.4, BUN 24 creatinine 1.24, sodium 131, potassium 4.5. 12/31 Patient seen and examined. Today, patient underwent CT chest/abd/pelvis ordered by oncology following a positive stool for occult blood. This was suspicious for renal mass. Results discussed with the patient and family but oncology will pr ovide more detail. We recommended with the family that we perform CTA of the chest to rule out PE. From a cardiac perspective, he is stable. Patient's family states that he has had weight loss, loss of appetite, generalized weakness. Blood pressure 104/58, heart rate 64, pulse ox 99% on room air. General surgery is on consult for possible endoscopy. PHYSICAL EXAMINATION: Neck: Brisk carotid upstroke, no jugular venous distention. Lungs: Clear to auscultation. Heart: Irregular pulses, S1-S2, , no murmur or rub. Abdomen: Soft nontender, positive bowel sounds. Extremities: No edema, intact distal pulses. Neuro: Alert, oritented, no focal deficits. Detailed neuro exam was not performed. ASSESSMENT: # Acute hypoxic respiratory failure # Sepsis with pneumonia # History of paroxysmal atrial fibrillation # History of PPM # Lactic acidosis # Elevated NT proBNP however less likely congestive heart failure from physical examination. Chronic pericardial effusion Persistent leukocytosis Renal mass, oncology on consult PLAN: Continue patient on Eliquis 2.5 mg twice daily, Farxiga 10 mg daily Continue Toprol XL 25 mg daily Continue torsemide 10 mg daily, plan to continue at the time of discharge for about 1 month. Nurse practitioner note has been reviewed, I agree with documented findings and plan of care. Patient was seen and examined. Objective - Vital Signs Vital signs: Vital Signs Temp 97.8 F 12/31/24 08:29 Pulse 64 12/31/24 08:29 Resp 16 12/31/24 08:29 BP 104/58 12/31/24 08:29 Pulse Ox 99 12/31/24 08:29 FiO2 Intake & Output 12/30/24 12/31/24 12/31/24 18:59 06:59 18:59 Intake Total 468 20 110 Output Total 375 Balance 468 -355 110 Weight 74.5 kg Intake: IV 10 20 10 Invasive Line 1 10 20 10 Oral 458 100 Output: Urine 375 Other: Voiding Method Urinal # Voids 0 # Bowel Movements 1 0 - Labs CBC & Chem 7: 12/30/24 22:13 12/30/24 10:07 Labs: Abnormal Lab Results - Last 24 Hours (Table) 12/30/24 12/30/24 12/30/24 Range/Units 16:32 20:04 22:13 WBC 20.2 H (3.8-10.6) k/uL RBC 2.63 L (4.30-5.90) m/uL Hgb 7.8 L (13.0-17.5) gm/dL Hct 24.4 L (39.0-53.0) % POC Glucose (mg/dL) 247 H 139 H (70-110) mg/dL 12/31/24 12/31/24 Range/Units 06:03 11:55 WBC (3.8-10.6) k/uL RBC (4.30-5.90) m/uL Hgb (13.0-17.5) gm/dL Hct (39.0-53.0) % POC Glucose (mg/dL) 165 H 166 H (70-110) mg/dL Microbiology - Last 24 Hours (Table) 12/27/24 19:53 Blood Culture - Preliminary Blood
--- NOTE | 2024-12-31 14:59 | P.PN ---
Subjective Progress Note Date: 12/31/24 84 year old M with PMH AFib, pacemaker, DM, CAD, HTN presents to the ED for shortness of breath. Supplemental information obtained from family at bedside as patient is a poor historian. Family reports exertional shortness of breath, fatigue, unsteady gait that has been progressively getting worse over the past month. Family also reports melanotic stools and decreased appetite leading to 30 pound weight loss since May. Patient denies cough, fever or chills, nausea or vomiting, lower extremity edema, changes in urination. In the ED he underwent extensive evaluation. BP 160/71, HR 88, T 97.8F, RR 16, 98% on RA. CBC, Coag panel, CMP significant for WBC 21.1, RBC 2.77, Hg 8.4, Hct 26, Na 135, BUN 26, glu 236, alb 3.1. Lactic acid 3.2. BNP 1790. Trop 0.014, 0.02, 0.02. Procal 0.14. TSH 1.85. UA small LE with 39 WBCs. COVID, RSV, Flu neg. CXR cardiomegaly with small R and trace L pleural effusion. EKG A-Fib with Q waves in the inferior leads. Patient is admitted for further workup and management. Initially started on Rocephin/Azithromycin for PNA, Pulmonary consulted, pro-linda negative, antibiotics discontinued. He was started on Lasix IV and admitted for Cardiology evaluation. Echo showed EF 55-60% with diastolic dysfunction and moderate pericardial effusion, diuretics transitioned to Torsemide. Iron studies showed Fe 13, % sat 6.1, Ferritin 322 for which he was started on IV iron. Stool occult positive, Surgery consulted. Heme-Onc consulted for persistent leukocytosis, CT chest/abd/pel ordered which showed right renal mass extending towards the duodenum, Urology is consulted as well. 12/31 Patient was seen and examined. Still shortness of breath with ambulation. No new labs done today. CT chest/abd/pelvis as above, plans to consult Urology. Surgery consulted for stool occult positive. General: non toxic, no distress, appears at stated age Derm: warm, dry Head: atraumatic, normocephalic, symmetric Eyes: EOMI, no lid lag, anicteric sclera Mouth: no lip lesion, mucus membranes moist Cardiovascular: S1 S2 irreg. No murmurs, rubs or gallops. Lungs: Decreased BS bilaterally, no accessory muscle use Ext: no gross muscle atrophy, no edema, no contractures Neuro: no focal neuro deficits Psych: Alert, oriented, appropriate affect Based on my assessment of this patient, this patient meets a high complexity level of care. Acute CHF exacerbation with bilateral pleural effusions + pericardial effusion: Torsemide 10 mg PO QD. Echo as above. Cardiology on board. SIRS: Unknown etiology. Procal negative. Rocephin and Azithromycin discontinued. Blood culture neg so far. UA small LE with 39 WBCs but asymptomatic. CXR with no concerns of PNA. Telemetry monitoring. Hematology on board. Iron def anemia: Reports of melena. Iron studies as above. FeSO4 325 mg PO QD. IV iron ordered. Stop Eliquis for now. Transfuse if Hg < 7. Stool for occult blood positive. Surgery consulted. Renal cell mass: Newly found. Urology consulted for further workup and management. DM with hyperglycemia: A1c 6.6. ISS with Accuchecks ACHS and Hypoglycemic precautions. AFib: Eliquis on hold due to anemia. Metoprolol 25 mg PO QD. CAD: Metoprolol as above. Pravastatin 20 mg PO QD. HTN: Metoprolol as above. Resolved: Lactic acidosis, Constipation. CODE STATUS: FULL CODE DVT Prophylaxis: Eliquis. GI Prophylaxis: Designated medical POA if patient is not able to make medical decisions for themselves: I have reviewed the following residential solar sales consultant notes: Cardio, Pulmonary. I have reviewed the results of the following tests: CT chest/abd/pel I have ordered the following tests: I have discussed the care of this patient with the following independent historian: . BETZAIDA. I have independently interpreted the following test below: I have discussed the management of this patient with the following physician: Objective - Vital Signs Vital signs: Vital Signs Temp 97.8 F 12/31/24 08:29 Pulse 64 12/31/24 08:29 Resp 16 12/31/24 08:29 BP 104/58 12/31/24 08:29 Pulse Ox 99 12/31/24 08:29 FiO2 Intake & Output 12/30/24 12/31/24 12/31/24 18:59 06:59 18:59 Intake Total 468 20 110 Output Total 375 Balance 468 -355 110 Weight 74.5 kg Intake: IV 10 20 10 Invasive Line 1 10 20 10 Oral 458 100 Output: Urine 375 Other: Voiding Method Urinal # Voids 0 # Bowel Movements 1 0 - Labs CBC & Chem 7: 12/30/24 22:13 12/30/24 10:07 Labs: Abnormal Lab Results - Last 24 Hours (Table) 12/30/24 12/30/24 12/30/24 Range/Units 16:32 20:04 22:13 WBC 20.2 H (3.8-10.6) k/uL RBC 2.63 L (4.30-5.90) m/uL Hgb 7.8 L (13.0-17.5) gm/dL Hct 24.4 L (39.0-53.0) % POC Glucose (mg/dL) 247 H 139 H (70-110) mg/dL 12/31/24 12/31/24 Range/Units 06:03 11:55 WBC (3.8-10.6) k/uL RBC (4.30-5.90) m/uL Hgb (13.0-17.5) gm/dL Hct (39.0-53.0) % POC Glucose (mg/dL) 165 H 166 H (70-110) mg/dL Microbiology - Last 24 Hours (Table) 12/27/24 19:53 Blood Culture - Preliminary Blood
--- NOTE | 2024-12-31 15:44 | P.GSCN ---
History of Present Illness Consult date: 12/31/24 History of present illness: 84 yo male from the [facility] in the hospital with sob due to chf. He has multiple cardiac issues including afib, cad, chf and a pacemaker. During this hospitalization he had a ct scan of chest, abdomen that identified a large right renal mass worrisome for a renal cell ca. The patients urine shows some pyuria and minimal hematuria. The ct scan shows bilateral pleural effusions and an enlarged heart. There is no obvious metastatic disease. His hgb is 7.8. The mass is large and abuts up to the cava. Does not appear to be any tumor in the cava. The left renal vein is normal. The right renal vein is difficult to see. The right renal artery is normal. No obvious lymphadenopathy. The patient's creatinine is 1.24. The patient has no history of flank pain. There is been no gross hematuria. Has had no swelling or masslike effect. He does have heme positive stool. Anemia cause is not clear. Whether it is due to chronic disease related to his cancer or something else or a combination thereof. Review of Systems All systems: negative - Constitutional Denies fever, Denies weight loss - EENT Eyes: denies blurred vision Ears, nose, mouth and throat: Denies dysphagia - Cardiovascular Denies chest pain, Denies shortness of breath - Respiratory Denies cough, Denies 7 - Gastrointestinal Reports as per HPI - Genitourinary Denies dysuria, Denies hematuria - Integumentary Denies rash, Denies unusual bruising - Neurological Denies headaches, Denies syncope - Hematologic/Lymphatic Denies easy bleeding, Denies easy bruising Past Medical History Past Medical History: Atrial Fibrillation, Coronary Artery Disease (CAD), Diabetes Mellitus, Hypertension History of Any Multi-Drug Resistant Organisms: None Reported Past Surgical History: Heart Catheterization, Pacemaker Additional Past Surgical History / Comment(s): Heart cath with no stents, has a pacemaker Past Anesthesia/Blood Transfusion Reactions: No Reported Reaction Type of Cardiac Device: Unknown Device Placement Date:: unknown Smoking Status: Never smoker Past Alcohol Use History: Rare Past Drug Use History: None Reported Medications and Allergies Home Medications Medication Instructions Recorded Confirmed Type Apixaban [Eliquis] 5 mg PO BID 12/28/24 12/28/24 History Metoprolol Tartrate [Lopressor] 12.5 mg PO DAILY 12/28/24 12/28/24 History Pravastatin Sodium [Pravachol] 20 mg PO DAILY 12/28/24 12/28/24 History Terazosin HCl 10 mg PO BID 12/28/24 12/28/24 History glyBURIDE/METFORMIN HCL 2 tab PO BID 12/28/24 12/28/24 History [Glucovance 5-500 mg] Sacubitril/Valsartan [Entresto 24 24 - 26 each PO BID 12/29/24 12/29/24 History mg-26 mg Tablet] Allergies Allergy/AdvReac Type Severity Reaction Status Date / Time No Known Allergies Allergy Verified 12/27/24 17:56 Surgical - Exam Vital Signs Temp Pulse Resp BP Pulse Ox 97.8 F 88 16 160/71 98 12/27/24 17:52 12/27/24 17:52 12/27/24 17:52 12/27/24 17:52 12/27/24 17:52 - General well developed, well nourished, no distress - Eyes normal ocular movement, no icteric - ENT no hearing loss, no congestion - Neck no masses, trachea midline - Respiratory normal respiratory effort, clear to auscultation - Abdomen Nontender. Abdomen: soft, non tender, no guarding, no rigid, no rebound - Integumentary no rash, no abnormal pigmentation - Neurologic no disoriented, no combative - Musculoskeletal No lower extremity swelling. - Psychiatric oriented to time, oriented to person, oriented to place, speech is normal, memory intact Results - Labs 12/30/24 22:13 12/30/24 10:07 Abnormal Lab Results - Last 24 Hours (Table) 12/30/24 12/30/24 12/30/24 Range/Units 16:32 20:04 22:13 WBC 20.2 H (3.8-10.6) k/uL RBC 2.63 L (4.30-5.90) m/uL Hgb 7.8 L (13.0-17.5) gm/dL Hct 24.4 L (39.0-53.0) % POC Glucose (mg/dL) 247 H 139 H (70-110) mg/dL 12/31/24 12/31/24 Range/Units 06:03 11:55 WBC (3.8-10.6) k/uL RBC (4.30-5.90) m/uL Hgb (13.0-17.5) gm/dL Hct (39.0-53.0) % POC Glucose (mg/dL) 165 H 166 H (70-110) mg/dL Microbiology - Last 24 Hours (Table) 12/27/24 19:53 Blood Culture - Preliminary Blood - Imaging CT scan - abdomen: report reviewed, image reviewed CT scan - pelvis: report reviewed, image reviewed Assessment and Plan Assessment: Impression: 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 Significant cardiac issues. Anemia of indeterminate etiology probably due to chronic disease from the cancer. Whether there is any GI condition contributing to this is indeterminate at this point in time. Recommendations. I did very lengthy discussion with the patient and daughter about treatment options. The patient probably needs a right radical nephrectomy. will need to evaluate the heme positive stool before any surgical endeavor is entertained. We did discuss referral to a major [facility]. We did discuss doing nothing. Pending further evaluation of the anemia as to final recommendations. He also has an elevated white count which is of uncertain cause but could be related the tumor itself. I will review these x- rays with my partners. I will speak with about the GI condition and pending further evaluation as a final recommendations. Time with Patient: Greater than 30
[2024-12-31 16:52] LABS: Glucose,Whole Blood 208 mg/dL (70-110)
--- NOTE | 2024-12-31 19:22 | P.CONS ---
History of Present Illness - Reason for Consult Consult date: 12/31/24 leukocytosis Requesting physician: Mohan Munoz - Chief Complaint SOB, weakness - History of Present Illness Mr. Padilla is a pleasant 84-year-old man that we have been asked to see because of significantly elevated WBC. Patient is currently receiving IV iron for low saturation. Patient states no recent infections, no fevers, chills, he states that he has been short of breath since he was diagnosed with pneumonia about 2 years ago. Since that time he has had a cough, decreased activity, poor appetite he has lost about 30 pounds in the last year, he states he deals with constipation most of the time, he is pruritic when he is in the shower. He denied any ne urological changes, hemoptysis, nausea, vomiting, abdominal pain, swelling in the legs, no changes in the caliber of his stool. CBC shows a WBC of 21.1 on 12/27, ANC 18.5. No other abnormality in the differential. Hemoglobin was 8.4, normocytic, normochromic. Coags are normal. Iron saturation 6.1 ferritin 322. BUN in the 20 range, creatinine 1.1-1.2 urinary analysis showing some trace protein, glucose some white blood cells, occult positive, viral panel negative Review of Systems 10 point ROS is neg except as stated in HPI Past Medical History Past Medical History: Atrial Fibrillation, Coronary Artery Disease (CAD), Diabetes Mellitus, Hypertension History of Any Multi-Drug Resistant Organisms: None Reported Past Surgical History: Heart Catheterization, Pacemaker Additional Past Surgical History / Comment(s): Heart cath with no stents, has a pacemaker Past Anesthesia/Blood Transfusion Reactions: No Reported Reaction Type of Cardiac Device: Unknown Device Placement Date:: unknown Smoking Status: Never smoker Past Alcohol Use History: Rare Past Drug Use History: None Reported Medications and Allergies Home Medications Medication Instructions Recorded Confirmed Type Apixaban [Eliquis] 5 mg PO BID 12/28/24 12/28/24 History Metoprolol Tartrate [Lopressor] 12.5 mg PO DAILY 12/28/24 12/28/24 History Pravastatin Sodium [Pravachol] 20 mg PO DAILY 12/28/24 12/28/24 History Terazosin HCl 10 mg PO BID 12/28/24 12/28/24 History glyBURIDE/METFORMIN HCL 2 tab PO BID 12/28/24 12/28/24 History [Glucovance 5-500 mg] Sacubitril/Valsartan [Entresto 24 24 - 26 each PO BID 12/29/24 12/29/24 History mg-26 mg Tablet] Allergies Allergy/AdvReac Type Severity Reaction Status Date / Time No Known Allergies Allergy Verified 12/27/24 17:56 Physical Exam Vitals: Vital Signs Temp Pulse Resp BP BP Pulse Ox 12/31/24 15:47 98.0 F 88 16 96/58 94 L 12/31/24 14:00 70 16 12/31/24 12:00 70 16 95/57 98 12/31/24 08:29 97.8 F 64 16 104/58 99 12/31/24 08:00 64 16 12/31/24 04:33 61 17 119/59 97 12/30/24 23:58 95 17 101/64 94 L 12/30/24 21:37 98.2 F 95 16 108/73 97 Intake and Output 12/31/24 12/31/24 12/31/24 06:59 14:59 22:59 Intake Total 10 120 Output Total 375 Balance -365 120 Intake: IV 10 20 Invasive Line 1 10 20 Oral 100 Output: Urine 375 Other: Voiding Method Urinal Urinal # Voids 0 # Bowel Movements 1 0 Weight 74.5 kg - Constitutional General appearance: cooperative, no acute distress, thin - EENT Eyes: anicteric sclerae, EOMI - Neck Neck: no lymphadenopathy - Respiratory Respiratory: bilateral: CTA - Cardiovascular Rhythm: regular Heart sounds: normal: S1, S2 Abnormal Heart Sounds: no systolic murmur, no diastolic murmur, no rub, no S3 Gallop, no S4 Gallop, no click, no other leg Peripheral Edema: bilateral: None - Gastrointestinal General gastrointestinal: no absent bowel sounds, no decreased bowel sounds, no distended, no hepatomegaly, no hyperactive bowel sounds, normal bowel sounds, no organomegaly, no rigid, no scaphoid, soft, no splenomegaly, no tenderness, no umbilical hernia, no ventral hernia - Integumentary Integumentary: normal - Neurologic Neurologic: CNII-XII intact - Musculoskeletal Musculoskeletal: generalized weakness - Psychiatric Psychiatric: A&O x's 3, appropriate affect, intact judgment & insight Results CBC & Chem 7: 12/30/24 22:13 12/30/24 10:07 Labs: Abnormal Lab Results - Last 24 Hours (Table) 12/30/24 12/30/24 12/31/24 Range/Units 20:04 22:13 06:03 WBC 20.2 H (3.8-10.6) k/uL RBC 2.63 L (4.30-5.90) m/uL Hgb 7.8 L (13.0-17.5) gm/dL Hct 24.4 L (39.0-53.0) % POC Glucose (mg/dL) 139 H 165 H (70-110) mg/dL 12/31/24 12/31/24 Range/Units 11:55 16:50 WBC (3.8-10.6) k/uL RBC (4.30-5.90) m/uL Hgb (13.0-17.5) gm/dL Hct (39.0-53.0) % POC Glucose (mg/dL) 166 H 208 H (70-110) mg/dL Microbiology - Last 24 Hours (Table) 12/27/24 19:53 Blood Culture - Preliminary Blood Chest x-ray: report reviewed Assessment and Plan (1) Leukocytosis Current Visit: Yes Status: Acute Priority: Medium Code(s): D72.829 - ELEVATED WHITE BLOOD CELL COUNT, UNSPECIFIED SNOMED Code(s): 086058287 Plan: Leukocytosis -Presentation and current workup results summarized in HPI -Leukocytosis, AI laboratory workup ordered. -CT chest and abdomen ordered for persistent cough, weight loss. -Will follow-up on workup, further recommendations to follow Doctor attests: I performed a history and physical examination of this patient, developed impression and plan of care. Discussed with dictator. I agree with dictators note, documented as a scribe.
[2024-12-31 19:58] LABS: Glucose,Whole Blood 167 mg/dL (70-110)
[2024-12-31 20:04] LABS: Complement C3 92.7 mg/dL (80.0-207.0); Rheumatoid Factor, Qnt <15 IU/mL (0-15)
[2024-12-31 20:52] LABS: Anti-DNA, DS unit <1.0 IU/mL; DNA Double-Stranded Negative (Negative)
[2025-01-01 06:01] LABS: Glucose,Whole Blood 142 mg/dL (70-110)
[2025-01-01 09:09] LABS: Basophils # (A) 0.1 k/uL (0-0.2); Basophils % (A) 1 %; Eosinophils # (A) 0.4 k/uL (0-0.7); Eosinophils % (A) 2 %; HCT 27.3 % (39.0-53.0); HGB 8.6 gm/dL (13.0-17.5); Hypochromasia Slight; Lymphocytes # (A) 1.4 k/uL (1.0-4.8); Lymphocytes % (A) 7 %; MCH 29.9 pg (25.0-35.0); MCHC 31.4 g/dL (31.0-37.0); MCV 95.4 fL (80.0-100.0); Mean Platelet Volume 8.1; Monocytes # (A) 0.7 k/uL (0-1.0); Monocytes % (A) 3 %; Neutrophils % (A) 87 %; Platelet Count 417 k/uL (150-450); RBC 2.86 m/uL (4.30-5.90); RDW 15.1 % (11.5-15.5); WBC 20.8 k/uL (3.8-10.6)
[2025-01-01 09:35] LABS: African American GFR (CKD) 53 (>60 ml/min/1.73 sqM); Anion Gap 10 mmol/L; Blood Urea Nitrogen 25 mg/dL (9-20); Calcium 8.7 mg/dL (8.4-10.2); Carbon Dioxide 28 mmol/L (22-30); Chloride 94 mmol/L (98-107); Glucose 135 mg/dL (74-99); Non-African American GFR(CKD) 46 (>60 ml/min/1.73 sqM); Potassium 4.1 mmol/L (3.5-5.1); Sodium 132 mmol/L (137-145)
--- NOTE | 2025-01-01 12:15 | P.PN ---
Subjective Progress Note Date: 01/01/25 SURGICAL PROGRESS NOTE CHIEF COMPLAINT: shortness of breath HISTORY OF PRESENT ILLNESS: patient is lying in bed comfortably. No further reported black stools. no new complaints. WBC is 20.8 Hgb 7.8 up to 8.6 platelets 417 sodium 132 potassium 4.1 creatinine 1.38 PHYSICAL EXAM: VITAL SIGNS: Reviewed. GENERAL: Well-developed in no acute distress. ABDOMEN: Soft. Nondistended. Nontender. NEUROLOGIC: sleeping comfortably ASSESSMENT: 1. Anemia with stool positive for occult blood and melanotic stools 2. Right renal mass which extends towards the duodenum and possibly invades into and partially obstructs the duodenum noted on abdominal CT scan 3. Unexplained weight loss of 30 pounds 4. Acute CHF exacerbation has been transitioned to oral diuretics PLAN: -Discussed case with cardiology DIRECTOR [employer] there is no cardiac contraindication to proceed with endoscopies -Plan for EGD and colonoscopy tomorrow with Dr. Back -clear liquid diet today -Start GoLYTELY bowel prep -NPO after midnight -Continue to monitor hemoglobin -continue to monitor for any signs or symptoms of bleeding -Patient seen by urology regarding renal mass and recommendations noted Physician Ambulette Driver note has been reviewed by physician. Signing provider agrees with the documented findings, assessment, and plan of care. Objective - Vital Signs Vital signs: Vital Signs Temp 97.8 F 01/01/25 04:00 Pulse 86 01/01/25 04:00 Resp 16 01/01/25 04:00 BP 112/70 01/01/25 04:00 Pulse Ox 95 01/01/25 04:00 FiO2 Intake & Output 12/31/24 01/01/25 01/01/25 18:59 06:59 18:59 Intake Total 220 20 Balance 220 20 Weight 142 kg Intake: IV 20 20 Invasive Line 1 20 20 Oral 200 Other: Voiding Method Urinal Urinal # Voids 0 # Bowel Movements 0 - Labs CBC & Chem 7: 01/01/25 08:40 01/01/25 08:40 Labs: Abnormal Lab Results - Last 24 Hours (Table) 12/31/24 12/31/24 12/31/24 Range/Units 10:46 11:55 16:50 ESR 37 H (0-20) mm/Hr POC Glucose (mg/dL) 166 H 208 H (70-110) mg/dL 12/31/24 01/01/25 Range/Units 19:57 06:00 ESR (0-20) mm/Hr POC Glucose (mg/dL) 167 H 142 H (70-110) mg/dL Assessment and Plan Assessment: 84 yo male w/ anemia and dark stools -egd/colonoscopy on 01/02 Time with Patient: Less than 30
[2025-01-01 12:19] LABS: Glucose,Whole Blood 199 mg/dL (70-110)
--- NOTE | 2025-01-01 12:35 | P.PN ---
Subjective Progress Note Date: 01/01/25 The patient is in the hospital with cardiac issues. He was coincidentally found to have a right renal mass. He is anemic and has an elevated wbc persistently at 20k. I rereviewed the ct scan and case with my partners. There is no obvious metastatic disease however the tumor appears to be more adherent to the vena cava and renal vein. Objective - Vital Signs Vital signs: Vital Signs Temp 97.8 F 01/01/25 04:00 Pulse 86 01/01/25 04:00 Resp 16 01/01/25 04:00 BP 112/70 01/01/25 04:00 Pulse Ox 95 01/01/25 04:00 FiO2 Intake & Output 12/31/24 01/01/25 01/01/25 18:59 06:59 18:59 Intake Total 220 20 Balance 220 20 Weight 142 kg Intake: IV 20 20 Invasive Line 1 20 20 Oral 200 Other: Voiding Method Urinal Urinal # Voids 0 # Bowel Movements 0 - Labs CBC & Chem 7: 01/01/25 08:40 01/01/25 08:40 Labs: Abnormal Lab Results - Last 24 Hours (Table) 12/31/24 12/31/24 12/31/24 Range/Units 10:46 11:55 16:50 ESR 37 H (0-20) mm/Hr POC Glucose (mg/dL) 166 H 208 H (70-110) mg/dL 12/31/24 01/01/25 Range/Units 19:57 06:00 ESR (0-20) mm/Hr POC Glucose (mg/dL) 167 H 142 H (70-110) mg/dL Assessment and Plan Assessment: Impression: right renal mass, anemia, inflammatory condition possible in the mass Recommendations. I, upon rereview am concerned about the lesion and its location next to the venacava. WIth the elevated wbc and heme positive stool he will need a gi evauation. If that doesnt show any abnormality he probably would be better served with referral to a major center for treatment of this lesion given his age , the proximity to the cava and the fact that this may be an inflammatory lesion which would significantly complicate any surgery. This has been discussed with the patient and his family. We will follow.
--- NOTE | 2025-01-01 12:42 | P.PN ---
Subjective Progress Note Date: 01/01/25 HISTORY OF PRESENTING ILLNESS: Patient is a 84-year-old male with past medical history of atrial fibrillation, PPM, type 2 diabetes. He presented to the hospital because of increased worsening shortness of breath along with minimal exertion which was progressively getting worse. Cardiology was consulted because of mild elevated NT proBNP and prior history of atrial fibrillation. Diagostics: Admission Labs: Leukocytosis WBC 19.9, anemia hemoglobin 7.7, elevated lactate of 2.2, troponin negative at 0.02, creatinine 1.18, glucose 236, NT-proBNP 1790 Admission EKG: Atrial paced V sensed rhythm Cardio relavant imaging: Chest x-ray shows possible right lower lobe infiltrates consistent with pneumonia. 12/29 Patient seen and examined. She states that her shortness of breath is better. No lower extremity edema. Blood pressure 90/53, heart rate 70, pulse ox 99% on room air. Telemetry sinus rhythm/paced rhythm. Repeat blood work reveals hemoglobin 8.4, BUN 21 creatinine 1.19. Chest x-ray reveals persistent cardiomegaly with small bilateral pleural effusions. Correlate for CHF exacerbation or fluid overload state. Associated bibasilar opacities favor compressive atelectasis. A1c 6.6. TSH 1.85. Triglycerides 88, cholesterol 121, LDL 73. Procalcitonin 0.14. Echocardiogram report is pending. 12/30 Patient is seen and examined. He is doing well today. Echocardiogram reveals EF of 55 to 60%, moderate pericardial effusion which appears to be chronic with thickened pericardium and fibrinous exudative material on the surface of the anterior RV wall consistent with chronic effusion. All information including the results of testing have been reviewed with the patient, his family at the bedside as well as his grandson over the phone. Patient does not require For the pericardial effusion. Patient's blood pressure is on the lower side but seems to have no symptoms from that. Patient states he is eating okay. He denies chest pain. Anemia seems to be chronic. Blood pressure 98/55, heart rate 80, pulse ox 97% on room air. Repeat blood work reveals hemoglobin 8.6, WBC 19.4, BUN 24 creatinine 1.24, sodium 131, potassium 4.5. 12/31 Patient seen and examined. Today, patient underwent CT chest/abd/pelvis ordered by oncology following a positive stool for occult blood. This was suspicious for renal mass. Results discussed with the patient and family but oncology will pr ovide more detail. We recommended with the family that we perform CTA of the chest to rule out PE. From a cardiac perspective, he is stable. Patient's family states that he has had weight loss, loss of appetite, generalized weakness. Blood pressure 104/58, heart rate 64, pulse ox 99% on room air. General surgery is on consult for possible endoscopy. 01/01 Patient seen and examined. Family states that plan is for endoscopy. Patient has been scheduled for EGD and colonoscopy tomorrow and Eliquis has been placed on hold. Telemetry is atrial fibrillation with controlled rate. Regarding the renal mass, patient has been seen by oncology and recommended right radical nephrectomy with plan for referral to [facility]. Blood pressure 112/70, heart rate 86, pulse ox 95% on room air. Repeat blood work reveals WBC 20.8, hemoglobin 8.6, BUN 25 creatinine 1.38, sodium 132, potassium 4.1. PHYSICAL EXAMINATION: Neck: Brisk carotid upstroke, no jugular venous distention. Lungs: Clear to auscultation. Heart: Irregular pulses, S1-S2, , no murmur or rub. Abdomen: Soft nontender, positive bowel sounds. Extremities: No edema, intact distal pulses. Neuro: Alert, oritented, no focal deficits. Detailed neuro exam was not performed. ASSESSMENT: # Acute hypoxic respiratory failure # Sepsis with possible pneumonia # History of paroxysmal atrial fibrillation, currently rate controlled # History of PPM # Lactic acidosis # Elevated NT proBNP however less likely congestive heart failure from physical examination. Pericardial effusion Persistent leukocytosis Renal mass PLAN: Hold Farxiga as patient is planned for surgical intervention including n.p.o. status for EGD and colonoscopy for tomorrow Hold Eliquis for EGD and colonoscopy Continue pravastatin, Toprol XL 25 mg daily, torsemide 10 mg daily, plan to continue torsemide at the time of discharge for about 1 month. Regarding nephrectomy, patient is cleared for surgical intervention with moderate risk of complication. No absolute contraindications for proceeding with surgery. Patient will require close hemodynamic monitoring in the perioperative period. Nurse practitioner note has been reviewed, I agree with documented findings and plan of care. Patient was seen and examined. Objective - Vital Signs Vital signs: Vital Signs Temp 97.8 F 01/01/25 04:00 Pulse 86 01/01/25 04:00 Resp 16 02/14/25 04:00 BP 112/70 01/01/25 04:00 Pulse Ox 95 01/01/25 04:00 FiO2 Intake & Output 12/31/24 01/01/25 01/01/25 18:59 06:59 18:59 Intake Total 220 20 Balance 220 20 Weight 142 kg Intake: IV 20 20 Invasive Line 1 20 20 Oral 200 Other: Voiding Method Urinal Urinal # Voids 0 # Bowel Movements 0 - Labs CBC & Chem 7: 01/01/25 08:40 01/01/25 08:40 Labs: Abnormal Lab Results - Last 24 Hours (Table) 12/31/24 12/31/24 12/31/24 Range/Units 10:46 11:55 16:50 WBC (3.8-10.6) k/uL RBC (4.30-5.90) m/uL Hgb (13.0-17.5) gm/dL Hct (39.0-53.0) % Neutrophils # (1.3-7.7) k/uL ESR 37 H (0-20) mm/Hr Sodium (137-145) mmol/L Chloride (98-107) mmol/L BUN (9-20) mg/dL Creatinine (0.66-1.25) mg/dL Glucose (74-99) mg/dL POC Glucose (mg/dL) 166 H 208 H (70-110) mg/dL 12/31/24 01/01/25 01/01/25 Range/Units 19:57 06:00 08:40 WBC 20.8 H (3.8-10.6) k/uL RBC 2.86 L (4.30-5.90) m/uL Hgb 8.6 L (13.0-17.5) gm/dL Hct 27.3 L (39.0-53.0) % Neutrophils # 18.0 H (1.3-7.7) k/uL ESR (0-20) mm/Hr Sodium (137-145) mmol/L Chloride (98-107) mmol/L BUN (9-20) mg/dL Creatinine (0.66-1.25) mg/dL Glucose (74-99) mg/dL POC Glucose (mg/dL) 167 H 142 H (70-110) mg/dL 01/01/25 Range/Units 08:40 WBC (3.8-10.6) k/uL RBC (4.30-5.90) m/uL Hgb (13.0-17.5) gm/dL Hct (39.0-53.0) % Neutrophils # (1.3-7.7) k/uL ESR (0-20) mm/Hr Sodium 132 L (137-145) mmol/L Chloride 94 L (98-107) mmol/L BUN 25 H (9-20) mg/dL Creatinine 1.38 H (0.66-1.25) mg/dL Glucose 135 H (74-99) mg/dL POC Glucose (mg/dL) (70-110) mg/dL
[2025-01-01] MEDS: PEG 3350 (236 GM/BTL) + LYTES 4,000 ML BOTTLE PO ONE (12:53)
--- NOTE | 2025-01-01 15:50 | P.PN ---
Subjective Progress Note Date: 01/01/25 Principal diagnosis: Shortness of breath. Patient is a 84-year-old male with past medical history significant for atrial fibrillation, permanent pacemaker, diabetes mellitus. His primary care provider is a Dr. Morgan Pierre out of [place]. He is uncertain of the medications that he takes. Patient normally follows in [facility] for his medical needs. States that he has been suffering from shortness of breath that limits his activity, progressively worse over the last year. Workup in the emergency department includes a chest x-ray showing cardiomegaly with small to trace bilateral pleural effusions. NT proBNP elevated at 1790. CBC: WBC count 21.1, hemoglobin 8.4, hematocrit 26, platelets 365. CMP: Sodium 135, potassium 4.1, chloride 100, serum bicarb 26, BUN 26, creatinine 1.18, glucose 236. Lactic was 3.2 and is down to 2.2. Troponins 0.014, 0.02, and 0.02 respectively. EKG: Atrial fibrillation with controlled ventricular response, rate 74 bpm, no acute isch emic changes. Viral screen negative for influenza, RSV, COVID. Patient currently being evaluated in the emergency department. He is resting comfortably in bed on room air oxygen. SpO2 reading 97% on bedside monitor. Shortness of breath is particularly worse with exertion. States that he can no longer perform ADLs without much difficulty. He becomes severely short of breath with exertion such as walking out to the mailbox. Denies pre-existing COPD or asthma. Non-smoker. Denies infectious-like symptoms. Denies history of heart failure. Denies chest pain, heart palpitations, lightheadedness/syncopal events, orthopnea, PND, lower extremity swelling. States he does not take any diuretics; however, he is unsure of his home medications. Reportedly does take Eliquis. Denies any samir blood loss, melena. Vital signs: Afebrile, heart rate 70 bpm, blood pressure 126/66 mmHg, nontachypneic, SpO2 reading 97% on room air. Progress note dated December 29, 2024. 84-year-old male admitted with a primary diagnosis of CHF. Currently, the patient is seen today in room 373. He is sitting at the bed side, in a chair, in no distress. He is not receiving any supplemental oxygen, or IV fluids. He has no specific complaints today. Current laboratory data includes a white count 18.8, hemoglobin 8.4, hematocrit 26.8, and a platelet count of 386,000. Sodium 136, potassium 3.9, chlorides 98, CO2 27, anion gap 11, BUN 21, creatinine 1.19. Glucose is 255. Calcium is 8.8. Magnesium 1.9. Chest x-ray today shows cardiomegaly, with small bilateral pleural effusions. The chest x- ray is most compatible with CHF. Progress note dated December 30, 2024. 84-year-old male seen today in room 373. The patient is currently on room air. He is not receiving any IV fluids. He is a DO NOT RESUSCITATE patient. Rocephin will be discontinued. His procalcitonin level was 0.14. He has been seen by cardiology. He was admitted primarily with a diagnosis of CHF. White count 19.4, hemoglobin 8.6, hematocrit 27.4, and platelet count 384,000. Sodium 131, potassium 4.5, chlorides 97, CO2 26, BUN 24, and creatinine 1.24. Glucose is 294. Calcium is 8.8. Progress note dated December 31, 2024. 84-year-old male seen today in room 373. The patient appears to be doing relatively well. He was admitted with a diagnosis of shortness of breath, likely related to congestive heart failure. We do not believe the patient has pneumonia. He is on room air. He is not receiving any IV fluids. No new laboratory data today, other than a glucose of 166. His procalcitonin level, was 0.14. The patient had a CT scan of the chest abdomen pelvis, which shows a right renal mass, which extends towards the duodenum, and possibly invades into the duodenum. The concern here is for renal cell carcinoma. There is an enlarged prostate, diverticular disease, and small pericardial effusion and amy ateral pleural effusions. Progress note dated January 01, 2025. This is a 84-year-old male who is seen today in room 373. He is getting saline at 20 cc an hour, and he is currently on room air. Family members are at the bedside. They have a lot of questions, all of which I tried to answer. In addition, the patient had a CT scan of the chest/abdomen/pelvis, which showed a right renal mass, which extends into the duodenum, potentially consistent with hypernephroma. Apparently the patient will have a colonoscopy. White count 20.8, hemoglobin 8.6, hematocrit 27.3, and a platelet count of 417,000. Sodium 132, potassium 4.1, chloride 94, CO2 28, BUN 25, creatinine 1.38. Glucose is 199. Calcium is 8.7. Objective - Vital Signs Vital signs: Vital Signs Temp 97.6 F 01/01/25 09:50 Pulse 71 01/01/25 11:25 Resp 16 01/01/25 11:25 BP 99/60 01/01/25 11:25 Pulse Ox 96 01/01/25 11:25 FiO2 Intake & Output 12/31/24 01/01/25 01/01/25 18:59 06:59 18:59 Intake Total 220 20 Balance 220 20 Weight 142 kg Intake: IV 20 20 Invasive Line 1 20 20 Oral 200 Other: Voiding Method Urinal Urinal Urinal # Voids 0 # Bowel Movements 0 - Exam No acute distress, oriented 3. Currently on room air. HEENT examination is grossly unremarkable. Mucous membranes are moist. No oral lesions. Neck supple. Full range of motion. No adenopathy thyromegaly or neck vein distention. Cardiovascular examination reveals an irregular rhythm and rate. S1-S2 normal. No S3 or S4. No discernible murmur noted. Lungs reveal mostly clear breath sounds. Minimal basilar crackles. No wheezes. No rhonchi. Abdomen soft bowel sounds are heard. No masses or tenderness. Extremities are intact. No cyanosis clubbing or edema. Skin is without rash or lesion. Neurologic examination is brief but nonfocal. - Labs CBC & Chem 7: 01/01/25 08:40 01/01/25 08:40 Labs: Abnormal Lab Results - Last 24 Hours (Table) 12/31/24 12/31/24 12/31/24 Range/Units 10:46 16:50 19:57 WBC (3.8-10.6) k/uL RBC (4.30-5.90) m/uL Hgb (13.0-17.5) gm/dL Hct (39.0-53.0) % Neutrophils # (1.3-7.7) k/uL ESR 37 H (0-20) mm/Hr Sodium (137-145) mmol/L Chloride (98-107) mmol/L BUN (9-20) mg/dL Creatinine (0.66-1.25) mg/dL Glucose (74-99) mg/dL POC Glucose (mg/dL) 208 H 167 H (70-110) mg/dL 01/01/25 01/01/25 01/01/25 Range/Units 06:00 08:40 08:40 WBC 20.8 H (3.8-10.6) k/uL RBC 2.86 L (4.30-5.90) m/uL Hgb 8.6 L (13.0-17.5) gm/dL Hct 27.3 L (39.0-53.0) % Neutrophils # 18.0 H (1.3-7.7) k/uL ESR (0-20) mm/Hr Sodium 132 L (137-145) mmol/L Chloride 94 L (98-107) mmol/L BUN 25 H (9-20) mg/dL Creatinine 1.38 H (0.66-1.25) mg/dL Glucose 135 H (74-99) mg/dL POC Glucose (mg/dL) 142 H (70-110) mg/dL 01/01/25 Range/Units 12:17 WBC (3.8-10.6) k/uL RBC (4.30-5.90) m/uL Hgb (13.0-17.5) gm/dL Hct (39.0-53.0) % Neutrophils # (1.3-7.7) k/uL ESR (0-20) mm/Hr Sodium (137-145) mmol/L Chloride (98-107) mmol/L BUN (9-20) mg/dL Creatinine (0.66-1.25) mg/dL Glucose (74-99) mg/dL POC Glucose (mg/dL) 199 H (70-110) mg/dL Assessment and Plan Assessment: Suspect acute CHF exacerbation, unknown type. Acute on chronic dyspnea, chest x-ray showing cardiomegaly with small to trace bilateral pleural effusions. Right renal mass, potentially consistent with hypernephroma. Acute leukocytosis. Normocytic, normochromic anemia. Atrial fibrillation with controlled ventricular response. Permanent pacemaker. History of hypertension. Diabetes mellitus type 2. Plan: Plan dated December 29, 2024. The patient is seen today in room 373. Currently, the patient is on room air. He is not receiving any IV fluids. His most recent chest x-ray consistent with cardiomegaly, mild fluid overload. Labs, x-rays, and all medications are reviewed. The patient is a DO NOT RESUSCITATE patient. We will continue to follow the patient, make recommendations along the way. 50 minutes was spent with this patient, including the interview process, examination, review of pertinent labs, x-rays, medications, as well as discussing the diagnosis, eula atment, and prognosis, with the patient, and the patient's bedside nurse. Plan dated December 30, 2024. The patient is seen today in room 373. The patient is currently on room air. Is not receiving any IV fluids. Chest x-ray from the , shows evidence of fluid overload, with cardiomegaly. Labs, x-rays, and all medications are reviewed. The patient is a DO NOT RESUSCITATE patient. 50 minutes was spent with the patient, including the process of interviewing him, examining him, reviewing pertinent laboratory data, x-rays, and medications, as well as discussing the diagnosis, treatment, and prognosis, with the patient, and the patient's bedside nurse. Plan dated December 31, 2024. The patient is seen today in room 373. The patient had a CT scan of the abdomen and pelvis, and chest, which revealed a right renal mass, likely consistent with hypernephroma/renal cell cancer. The patient is currently on room air. He is not receiving any IV fluids. His lungs are clear. Cardiac examination reveals an irregular rhythm rate, consistent with atrial fibrillation. We will continue to follow the patient, make recommendations along the way. The patient is a DO NOT RESUSCITATE patient. 50 minutes was spent with the patient, which included taking history, examining the patient, reviewing pertinent laboratory data, x- rays, medications, as well as discussing the diagnosis, treatment and prognosis with the patient, the patient's nursing staff, as well as the patient's family which were in the room. Dictation was produced using [employer] software. Please excuse any grammatical, word or spelling errors. Plan dated January 01, 2025. The patient is seen today in room 373. The patient is currently on room air. The patient is getting saline at 20 cc an hour. The patient had a CT scan of the abdomen and pelvis, which showed evidence of possible hypernephroma, with invasion into the small intestines. Apparently the patient is scheduled to have a colonoscopy. Labs, x-rays, medications are reviewed. We will continue to follow the patient, make recommendations. From the pulmonary standpoint, the patient is stable. His admission diagnosis was primarily shortness of breath secondary to CHF. 50 minutes was spent with this patient, including time taking history, examining the patient, reviewing pertinent laboratory data, x-rays, medications, as well as discussing the diagnosis, treatment, prognosis with the patient, the patient's family, and the nursing staff. As mentioned above, the patient's family had a number of questions, all of which I answered. Dictation was produced using [employer] dictation software. Please excuse any grammatical, word or spelling errors. Time with Patient: Greater than 30
[2025-01-01 16:38] LABS: Glucose,Whole Blood 226 mg/dL (70-110)
--- NOTE | 2025-01-01 16:53 | P.PN ---
Subjective Progress Note Date: 01/01/25 Hospital Course: 84 year old M with PMH AFib, pacemaker, DM, CAD, HTN presents to the ED for sh ortness of breath. Supplemental information obtained from family at bedside as patient is a poor historian. Family reports exertional shortness of breath, fatigue, unsteady gait that has been progressively getting worse over the past month. Family also reports melanotic stools and decreased appetite leading to 30 pound weight loss since May. Patient denies cough, fever or chills, nausea or vomiting, lower extremity edema, changes in urination. In the ED he underwent extensive evaluation. BP 160/71, HR 88, T 97.8F, RR 16, 98% on RA. CBC, Coag panel, CMP significant for WBC 21.1, RBC 2.77, Hg 8.4, Hct 26, Na 135, BUN 26, glu 236, alb 3.1. Lactic acid 3.2. BNP 1790. Trop 0.014, 0.02, 0.02. Procal 0.14. TSH 1.85. UA small LE with 39 WBCs. COVID, RSV, Flu neg. CXR cardiomegaly with small R and trace L pleural effusion. EKG A-Fib with Q waves in the inferior leads. Patient is admitted for further workup and management. Initially started on Rocephin/Azithromycin for PNA, Pulmonary consulted, pro-linda negative, antibiotics discontinued. He was started on Lasix IV and admitted for Cardiology evaluation. Echo showed EF 55-60% with diastolic dysfunction and moderate pericardial effusion, diuretics transitioned to Torsemide. Iron studies showed Fe 13, % sat 6.1, Ferritin 322 for which he was started on IV iron. Stool occult positive, Surgery consulted. Heme-Onc consulted for persistent le ukocytosis, CT chest/abd/pel ordered which showed right renal mass extending towards the duodenum, Urology is consulted as well. Plan for EGD and colonoscopy on 01/02, continue to hold Eliquis. Per cardiology, Continue pravastatin, Toprol XL 25 mg daily, torsemide 10 mg daily, plan to continue torsemide at the time of discharge for about 1 month. he was also cleared by cardiology for surgical intervention with moderate risk of complication Subjective: Patient was seen and examined. Pertinent patients. Present during exam. Patient complains only of fatigue, denied chest pain, shortness of breath, abdominal pain Pertinent positives and negatives as discussed above, a complete review of systems was performed and all other systems are negative. Vitals Signs Reviewed. General: [nontoxic], [no distress], [appears at stated age] Derm: [warm], [dry] Head: [atraumatic], [normocephalic], [symmetric] Eyes: [EOMI], [no lid lag], [anicteric sclera] Mouth: [no lip lesion], [mucus membranes moist] Cardiovascular: [S1S2 reg], [no murmur] Lungs: [CTA bilateral], [no rhonchi, no rales] , [no accessory muscle use] Abdominal: [soft], [ nontender to palpation], [no guarding], [no appreciable organomegaly] Ext: [no gross muscle atrophy], [no edema], [no contractures] Neuro: [ CN II-XI grossly intact], [no focal neuro deficits] Psych: [Alert], [oriented], [appropriate affect] Data Reviewed Today: Pertinent Labs: CBC persistently elevated 20.8, hemoglobin 8.6, platelet count normal, sodium low 132, normal potassium, creatinine 1.38, blood glucose 135 Assessment and Plan: Acute hypoxic respiratory failure secondary to acute CHF exacerbation Bilateral pleural effusion Pericardial effusion -Continue pravastatin, Toprol XL 25 mg daily, torsemide 10 mg daily, plan to continue torsemide at the time of discharge for about 1 month. SARS positive, unknown etiology, procalcitonin negative: Monitor off antibiotics, heme-onc following, monitor CBC, continue telemetry. Blood cultures negative to date Acute on chronic anemia Iron deficiency Persistent le likely secondary to upper GI bleed, occult blood positiveukocytosis Right renal mass, newly diagnosed -Holding Eliquis, on IV iron -Heme-onc, surgery consulted, plan for EGD and colonoscopy 01/02 -Cleared for urological surgery by cardiology Type II DM with hyperglycemia: Accu-Cheks, SSI, hypoglycemic precautions, will adjust insulins after patient is done with EGD and colonoscopy is planned for n.p.o. paroxysmal A-fib: Eliquis on hold due to anemia, metoprolol 25 daily Hypertension: Metoprolol as above DVT ppx: Eliquis, on hold Anticipated discharge place: Pending clinical stability Anticipated discharge time: Pending clinical stability Objective - Vital Signs Vital signs: Vital Signs Temp 97.6 F 01/01/25 09:50 Pulse 71 01/01/25 11:25 Resp 16 01/01/25 11:25 BP 99/60 01/01/25 11:25 Pulse Ox 96 01/01/25 11:25 FiO2 Intake & Output 12/31/24 01/01/25 01/01/25 18:59 06:59 18:59 Intake Total 220 20 Balance 220 20 Weight 142 kg 65 kg Intake: IV 20 20 Invasive Line 1 20 20 Oral 200 Other: Voiding Method Urinal Urinal Urinal # Voids 0 # Bowel Movements 0 - Labs CBC & Chem 7: 01/01/25 08:40 01/01/25 08:40 Labs: Abnormal Lab Results - Last 24 Hours (Table) 12/31/24 12/31/24 01/01/25 Range/Units 10:46 19:57 06:00 WBC (3.8-10.6) k/uL RBC (4.30-5.90) m/uL Hgb (13.0-17.5) gm/dL Hct (39.0-53.0) % Neutrophils # (1.3-7.7) k/uL ESR 37 H (0-20) mm/Hr Sodium (137-145) mmol/L Chloride (98-107) mmol/L BUN (9-20) mg/dL Creatinine (0.66-1.25) mg/dL Glucose (74-99) mg/dL POC Glucose (mg/dL) 167 H 142 H (70-110) mg/dL 01/01/25 01/01/25 01/01/25 Range/Units 08:40 08:40 12:17 WBC 20.8 H (3.8-10.6) k/uL RBC 2.86 L (4.30-5.90) m/uL Hgb 8.6 L (13.0-17.5) gm/dL Hct 27.3 L (39.0-53.0) % Neutrophils # 18.0 H (1.3-7.7) k/uL ESR (0-20) mm/Hr Sodium 132 L (137-145) mmol/L Chloride 94 L (98-107) mmol/L BUN 25 H (9-20) mg/dL Creatinine 1.38 H (0.66-1.25) mg/dL Glucose 135 H (74-99) mg/dL POC Glucose (mg/dL) 199 H (70-110) mg/dL 01/01/25 Range/Units 16:37 WBC (3.8-10.6) k/uL RBC (4.30-5.90) m/uL Hgb (13.0-17.5) gm/dL Hct (39.0-53.0) % Neutrophils # (1.3-7.7) k/uL ESR (0-20) mm/Hr Sodium (137-145) mmol/L Chloride (98-107) mmol/L BUN (9-20) mg/dL Creatinine (0.66-1.25) mg/dL Glucose (74-99) mg/dL POC Glucose (mg/dL) 226 H (70-110) mg/dL
--- NOTE | 2025-01-01 18:37 | P.PN ---
Subjective Progress Note Date: 01/01/25 No acute events overnight. Pt denies pain. Tolerating oral intake, denies n/v. Objective - Vital Signs Vital signs: Vital Signs Temp 97.8 F 01/01/25 04:00 Pulse 86 01/01/25 04:00 Resp 16 01/01/25 04:00 BP 112/70 01/01/25 04:00 Pulse Ox 95 01/01/25 04:00 FiO2 Intake & Output 12/31/24 01/01/25 01/01/25 18:59 06:59 18:59 Intake Total 220 20 Balance 220 20 Weight 142 kg Intake: IV 20 20 Invasive Line 1 20 20 Oral 200 Other: Voiding Method Urinal Urinal # Voids 0 # Bowel Movements 0 - Constitutional General appearance: Present: average body habitus, no acute distress - EENT Eyes: Present: anicteric sclerae, EOMI ENT: Present: hearing grossly normal - Respiratory Details: breathing is even and unlabored - Cardiovascular Details: skin warm and dry - Integumentary Integumentary: Absent: cyanotic, jaundiced - Psychiatric Psychiatric: Present: A&O x's 3 - Labs CBC & Chem 7: 01/01/25 08:40 01/01/25 08:40 Labs: Abnormal Lab Results - Last 24 Hours (Table) 12/31/24 12/31/24 12/31/24 Range/Units 10:46 16:50 19:57 WBC (3.8-10.6) k/uL RBC (4.30-5.90) m/uL Hgb (13.0-17.5) gm/dL Hct (39.0-53.0) % Neutrophils # (1.3-7.7) k/uL ESR 37 H (0-20) mm/Hr Sodium (137-145) mmol/L Chloride (98-107) mmol/L BUN (9-20) mg/dL Creatinine (0.66-1.25) mg/dL Glucose (74-99) mg/dL POC Glucose (mg/dL) 208 H 167 H (70-110) mg/dL 01/01/25 01/01/25 01/01/25 Range/Units 06:00 08:40 08:40 WBC 20.8 H (3.8-10.6) k/uL RBC 2.86 L (4.30-5.90) m/uL Hgb 8.6 L (13.0-17.5) gm/dL Hct 27.3 L (39.0-53.0) % Neutrophils # 18.0 H (1.3-7.7) k/uL ESR (0-20) mm/Hr Sodium 132 L (137-145) mmol/L Chloride 94 L (98-107) mmol/L BUN 25 H (9-20) mg/dL Creatinine 1.38 H (0.66-1.25) mg/dL Glucose 135 H (74-99) mg/dL POC Glucose (mg/dL) 142 H (70-110) mg/dL 01/01/25 Range/Units 12:17 WBC (3.8-10.6) k/uL RBC (4.30-5.90) m/uL Hgb (13.0-17.5) gm/dL Hct (39.0-53.0) % Neutrophils # (1.3-7.7) k/uL ESR (0-20) mm/Hr Sodium (137-145) mmol/L Chloride (98-107) mmol/L BUN (9-20) mg/dL Creatinine (0.66-1.25) mg/dL Glucose (74-99) mg/dL POC Glucose (mg/dL) 199 H (70-110) mg/dL - Imaging and Cardiology CT scan - abdomen: report reviewed CT scan - chest: report reviewed CT scan - pelvis: report reviewed Assessment and Plan (1) Renal mass Current Visit: Yes Status: Acute Priority: High Code(s): N28.89 - OTHER SPECIFIED DISORDERS OF KIDNEY AND URETER SNOMED Code(s): 621545432 (2) Leukocytosis Current Visit: Yes Status: Acute Priority: Medium Code(s): D72.829 - ELEVATED WHITE BLOOD CELL COUNT, UNSPECIFIED SNOMED Code(s): 399460528 Plan: Leukocytosis: -Presentation and current workup results summarized in HPI -Leukocytosis, autoimmune workup negative -CT chest and abdomen ordered for persistent cough, weight loss. Scan showing right renal mass measuring 10.6 x 7.4 x 6.9 cm which extends towards the duodenum possibly invades into and partially obstruct the duodenum. Prostatomegaly and diverticulosis. Small pericardial effusion and bilateral pleural effusions. -Urology and general surgery following. Plan for endoscopic evaluation tomorrow. Urology stating renal mass is concerning due to its location next to the venacava, and if endoscopy doesn't show any abnormality, they would recommend referral to a tertiary center for further evaluation -Leukocytosis appears to be r/t to noted CT findings. Continue to monitor CBC Doctor attests: I performed a history and physical examination of this patient, developed impression and plan of care. Discussed with dictator. I agree with dictators note, documented as a scribe.
[2025-01-01 20:25] LABS: Glucose,Whole Blood 178 mg/dL (70-110)
[2025-01-02 05:48] LABS: Glucose,Whole Blood 154 mg/dL (70-110)
[2025-01-02 07:12] LABS: Basophils # (A) 0.1 k/uL (0-0.2); Basophils % (A) 0 %; Eosinophils # (A) 0.6 k/uL (0-0.7); Eosinophils % (A) 3 %; HCT 27.2 % (39.0-53.0); HGB 8.7 gm/dL (13.0-17.5); Hypochromasia Slight; Lymphocytes % (A) 10 %; MCH 30.4 pg (25.0-35.0); Mean Platelet Volume 8.4; Monocytes # (A) 0.9 k/uL (0-1.0); Monocytes % (A) 4 %; Neutrophils # (A) 17.2 k/uL (1.3-7.7); Neutrophils % (A) 82 %; Platelet Count 423 k/uL (150-450); RBC 2.86 m/uL (4.30-5.90); RDW 15.4 % (11.5-15.5); WBC 20.9 k/uL (3.8-10.6)
[2025-01-02 07:37] LABS: African American GFR (CKD) 56 (>60 ml/min/1.73 sqM); Anion Gap 11 mmol/L; Blood Urea Nitrogen 24 mg/dL (9-20); Calcium 8.6 mg/dL (8.4-10.2); Carbon Dioxide 29 mmol/L (22-30); Chloride 93 mmol/L (98-107); Glucose 124 mg/dL (74-99); Non-African American GFR(CKD) 48 (>60 ml/min/1.73 sqM); Potassium 4.2 mmol/L (3.5-5.1); Sodium 133 mmol/L (137-145)
[2025-01-02] MEDS ORDERED: PROPOFOL 10 MG/ML 20 ML VIAL IV ONE (10:30)
[2025-01-02] MEDS ORDERED: LIDOCAINE 1% INJ 10MG/ML (20 ML MDV) ONE (10:30)
[2025-01-02] MEDS: LACTATED RINGERS 1,000 ML IV ONE (10:43)
--- NOTE | 2025-01-02 10:52 | P.OP ---
Date of Procedure: 01/02/25 Preoperative Diagnosis: GI Bleed Postoperative Diagnosis: Non Ulcerative Dyspepsia Procedure(s) Performed: EGD with Biopsy Anesthesia: GET Surgeon: Raghu Back Pathology: other (Antrum Biopsy) Condition: stable Disposition: PACU Description of Procedure: Informed consent was obtained. The procedure, its risks, benefits, and alternatives were discussed. The patient was placed in the left lateral decubitus position. The patient was sedated. The endoscope was inserted into the oropharynx and guided under direct vision into the esophagus, stomach, and duodenum. The duodenal bulb and second portion were unremarkable. The scope was withdrawn to the stomach and retroflexed. There was no increased fluid, food or secretions in the upper gastrointestinal tract. There was very minimal, nonspecific, patchy antral erythema. Biopsies were obtained for Helicobacter pylori. No erosions or ulcers. The scope was withdrawn to the esophagus. There was no hiatal hernia. No Barretts or esophagitis. The patient tolerated the procedure very well. The patient was then transferred to the recovery area in good condition. There were no apparent complications. I was unable to perform colonoscopy because patient did not drink prep.
[2025-01-02 11:00] LABS: Glucose,Whole Blood 159 mg/dL (70-110)
--- NOTE | 2025-01-02 11:15 | P.PN ---
Subjective Progress Note Date: 01/02/25 The patient is in the hospital with cardiac issues. He is found to have a large right renal mass. He has heme occult positive stools. He had upper endoscopy today that did not show any erosion of the tumor into the duodenum. Did not have colonoscopy Objective - Vital Signs Vital signs: Vital Signs Temp 98.1 F 01/02/25 08:00 Pulse 87 01/02/25 08:00 Resp 16 01/02/25 08:00 BP 112/71 01/02/25 08:00 Pulse Ox 98 01/02/25 08:00 FiO2 Intake & Output 01/01/25 01/02/25 01/02/25 18:59 06:59 18:59 Intake Total 200 Output Total 850 Balance -850 200 Weight 65 kg 74.9 kg Intake: IV 200 Output: Urine 850 Other: Voiding Method Urinal Urinal Urinal - Labs CBC & Chem 7: 01/02/25 05:55 01/02/25 05:55 Labs: Abnormal Lab Results - Last 24 Hours (Table) 01/01/25 01/01/25 01/01/25 Range/Units 12:17 16:37 20:22 WBC (3.8-10.6) k/uL RBC (4.30-5.90) m/uL Hgb (13.0-17.5) gm/dL Hct (39.0-53.0) % Neutrophils # (1.3-7.7) k/uL Sodium (137-145) mmol/L Chloride (98-107) mmol/L BUN (9-20) mg/dL Creatinine (0.66-1.25) mg/dL Glucose (74-99) mg/dL POC Glucose (mg/dL) 199 H 226 H 178 H (70-110) mg/dL 01/02/25 01/02/25 01/02/25 Range/Units 05:47 05:55 05:55 WBC 20.9 H (3.8-10.6) k/uL RBC 2.86 L (4.30-5.90) m/uL Hgb 8.7 L (13.0-17.5) gm/dL Hct 27.2 L (39.0-53.0) % Neutrophils # 17.2 H (1.3-7.7) k/uL Sodium 133 L (137-145) mmol/L Chloride 93 L (98-107) mmol/L BUN 24 H (9-20) mg/dL Creatinine 1.33 H (0.66-1.25) mg/dL Glucose 124 H (74-99) mg/dL POC Glucose (mg/dL) 154 H (70-110) mg/dL 01/02/25 Range/Units 10:59 WBC (3.8-10.6) k/uL RBC (4.30-5.90) m/uL Hgb (13.0-17.5) gm/dL Hct (39.0-53.0) % Neutrophils # (1.3-7.7) k/uL Sodium (137-145) mmol/L Chloride (98-107) mmol/L BUN (9-20) mg/dL Creatinine (0.66-1.25) mg/dL Glucose (74-99) mg/dL POC Glucose (mg/dL) 159 H (70-110) mg/dL Microbiology - Last 24 Hours (Table) 12/27/24 19:53 Blood Culture - Final Blood Assessment and Plan Assessment: Impression: Right renal mass. Recommendations. The patient will undergo colono scopy. Once that is clear then the patient will need a right radical nephrectomy. The inflammatory status of this with an elevated white count is still indeterminate. It is my belief he would be better served in a tertiary Medical Center with this unusual situation.
--- NOTE | 2025-01-02 13:57 | P.PN ---
Subjective Progress Note Date: 01/02/25 Hospital Course: 84 year old M with PMH AFib, pacemaker, DM, CAD, HTN presents to the ED for sh ortness of breath. Supplemental information obtained from family at bedside as patient is a poor historian. Family reports exertional shortness of breath, fatigue, unsteady gait that has been progressively getting worse over the past month. Family also reports melanotic stools and decreased appetite leading to 30 pound weight loss since May. Patient denies cough, fever or chills, nausea or vomiting, lower extremity edema, changes in urination. In the ED he underwent extensive evaluation. BP 160/71, HR 88, T 97.8F, RR 16, 98% on RA. CBC, Coag panel, CMP significant for WBC 21.1, RBC 2.77, Hg 8.4, Hct 26, Na 135, BUN 26, glu 236, alb 3.1. Lactic acid 3.2. BNP 1790. Trop 0.014, 0.02, 0.02. Procal 0.14. TSH 1.85. UA small LE with 39 WBCs. COVID, RSV, Flu neg. CXR cardiomegaly with small R and trace L pleural effusion. EKG A-Fib with Q waves in the inferior leads. Patient is admitted for further workup and management. Initially started on Rocephin/Azithromycin for PNA, Pulmonary consulted, pro-linda negative, antibiotics discontinued. He was started on Lasix IV and admitted for Cardiology evaluation. Echo showed EF 55-60% with diastolic dysfunction and moderate pericardial effusion, diuretics transitioned to Torsemide. Iron studies showed Fe 13, % sat 6.1, Ferritin 322 for which he was started on IV iron. Stool occult positive, Surgery consulted. Heme-Onc consulted for persistent le ukocytosis, CT chest/abd/pel ordered which showed right renal mass extending towards the duodenum, Urology is consulted as well. Plan for EGD and colonoscopy on 01/02, continue to hold Eliquis. EGD done and showed nonspecific patchy antral erythema, biopsies obtained for Helicobacter pylori, no erosions or ulcers, no hiatal hernia, no Rocha's esophagitis. Colonoscopy was not performed due to unfinished prep. Per urology, once patient underwent colonoscopy, he can proceed with a right radical nephrectomy. Per cardiology, Continue pravastatin, Toprol XL 25 mg daily, torsemide 10 mg daily, plan to continue torsemide at the time of discharge for about 1 month. he was also cleared by cardiology for surgical intervention with moderate risk of complication Subjective: Patient was seen and examined. Pertinent patients. Present during exam. Patient complains only of fatigue, denied chest pain, shortness of breath, abdominal pain Pertinent positives and negatives as discussed above, a complete review of systems was performed and all other systems are negative. Vitals Signs Reviewed. General: [nontoxic], [no distress], [appears at stated age] Derm: [warm], [dry] Head: [atraumatic], [normocephalic], [symmetric] Eyes: [EOMI], [no lid lag], [anicteric sclera] Mouth: [no lip lesion], [mucus membranes moist] Cardiovascular: [S1S2 reg], [no murmur] Lungs: [CTA bilateral], [no rhonchi, no rales] , [no accessory muscle use] Abdominal: [soft], [ nontender to palpation], [no guarding], [no appreciable organomegaly] Ext: [no gross muscle atrophy], [no edema], [no contractures] Neuro: [ CN II-XI grossly intact], [no focal neuro deficits] Psych: [Alert], [oriented], [appropriate affect] Data Reviewed Today: Pertinent Labs: CBC persistently elevated 20.9 hemoglobin 8.7, platelet count normal, sodium low 133, normal potassium, creatinine 1.33, blood glucose 154 Assessment and Plan: Acute hypoxic respiratory failure secondary to acute CHF exacerbation Bilateral pleural effusion Pericardial effusion -Continue pravastatin, Toprol XL 25 mg daily, torsemide 10 mg daily, plan to continue torsemide at the time of discharge for about 1 month. SARS positive, unknown etiology, procalcitonin negative: Monitor off antibiotics, heme-onc following, monitor CBC, continue telemetry. Blood cultures negative to date Acute on chronic anemia Iron deficiency Persistent le likely secondary to upper GI bleed, occult blood positiveukocytosis Right renal mass, newly diagnosed -Holding Eliquis, on IV iron -Heme-onc, surgery consulted, plan for EGD and colonoscopy 01/02, EGD was done, colonoscopy could not be performed due to unfinished prep -Cleared for urological surgery by cardiology -Per urology, patient would benefit from transfer to tertiary care for nephrectomy Type II DM with hyperglycemia: Accu-Cheks, SSI, hypoglycemic precautions, will adjust insulins after patient is done with EGD and colonoscopy is planned for n.p.o. paroxysmal A-fib: Eliquis on hold due to anemia, metoprolol 25 daily Hypertension: Metoprolol as above DVT ppx: Eliquis, on hold Anticipated discharge place: Pending clinical stability Anticipated discharge time: Pending clinical stability Objective - Vital Signs Vital signs: Vital Signs Temp 98.1 F 01/02/25 08:00 Pulse 90 01/02/25 12:00 Resp 16 01/02/25 08:00 BP 112/71 01/02/25 12:00 Pulse Ox 94 L 01/02/25 12:00 FiO2 Intake & Output 01/01/25 01/02/25 01/02/25 18:59 06:59 18:59 Intake Total 200 Output Total 850 Balance -850 200 Weight 65 kg 74.9 kg Intake: IV 200 Output: Urine 850 Other: Voiding Method Urinal Urinal Urinal - Labs CBC & Chem 7: 01/02/25 05:55 01/02/25 05:55 Labs: Abnormal Lab Results - Last 24 Hours (Table) 01/01/25 01/01/25 01/02/25 Range/Units 16:37 20:22 05:47 WBC (3.8-10.6) k/uL RBC (4.30-5.90) m/uL Hgb (13.0-17.5) gm/dL Hct (39.0-53.0) % Neutrophils # (1.3-7.7) k/uL Sodium (137-145) mmol/L Chloride (98-107) mmol/L BUN (9-20) mg/dL Creatinine (0.66-1.25) mg/dL Glucose (74-99) mg/dL POC Glucose (mg/dL) 226 H 178 H 154 H (70-110) mg/dL 01/02/25 01/02/25 01/02/25 Range/Units 05:55 05:55 10:59 WBC 20.9 H (3.8-10.6) k/uL RBC 2.86 L (4.30-5.90) m/uL Hgb 8.7 L (13.0-17.5) gm/dL Hct 27.2 L (39.0-53.0) % Neutrophils # 17.2 H (1.3-7.7) k/uL Sodium 133 L (137-145) mmol/L Chloride 93 L (98-107) mmol/L BUN 24 H (9-20) mg/dL Creatinine 1.33 H (0.66-1.25) mg/dL Glucose 124 H (74-99) mg/dL POC Glucose (mg/dL) 159 H (70-110) mg/dL Microbiology - Last 24 Hours (Table) 12/27/24 19:53 Blood Culture - Final Blood
--- NOTE | 2025-01-02 13:59 | P.PN ---
Subjective Progress Note Date: 01/02/25 Principal diagnosis: Shortness of breath. Patient is a 84-year-old male with past medical history significant for atrial fibrillation, permanent pacemaker, diabetes mellitus. His primary care provider is a Dr. Morgan Pierre out of [place]. He is uncertain of the medications that he takes. Patient normally follows in [facility] for his medical needs. States that he has been suffering from shortness of breath that limits his activity, progressively worse over the last year. Workup in the emergency department includes a chest x-ray showing cardiomegaly with small to trace bilateral pleural effusions. NT proBNP elevated at 1790. CBC: WBC count 21.1, hemoglobin 8.4, hematocrit 26, platelets 365. CMP: Sodium 135, potassium 4.1, chloride 100, serum bicarb 26, BUN 26, creatinine 1.18, glucose 236. Lactic was 3.2 and is down to 2.2. Troponins 0.014, 0.02, and 0.02 respectively. EKG: Atrial fibrillation with controlled ventricular response, rate 74 bpm, no acute isch emic changes. Viral screen negative for influenza, RSV, COVID. Patient currently being evaluated in the emergency department. He is resting comfortably in bed on room air oxygen. SpO2 reading 97% on bedside monitor. Shortness of breath is particularly worse with exertion. States that he can no longer perform ADLs without much difficulty. He becomes severely short of breath with exertion such as walking out to the mailbox. Denies pre-existing COPD or asthma. Non-smoker. Denies infectious-like symptoms. Denies history of heart failure. Denies chest pain, heart palpitations, lightheadedness/syncopal events, orthopnea, PND, lower extremity swelling. States he does not take any diuretics; however, he is unsure of his home medications. Reportedly does take Eliquis. Denies any samir blood loss, melena. Vital signs: Afebrile, heart rate 70 bpm, blood pressure 126/66 mmHg, nontachypneic, SpO2 reading 97% on room air. Progress note dated December 29, 2024. 84-year-old male admitted with a primary diagnosis of CHF. Currently, the patient is seen today in room 373. He is sitting at the bed side, in a chair, in no distress. He is not receiving any supplemental oxygen, or IV fluids. He has no specific complaints today. Current laboratory data includes a white count 18.8, hemoglobin 8.4, hematocrit 26.8, and a platelet count of 386,000. Sodium 136, potassium 3.9, chlorides 98, CO2 27, anion gap 11, BUN 21, creatinine 1.19. Glucose is 255. Calcium is 8.8. Magnesium 1.9. Chest x-ray today shows cardiomegaly, with small bilateral pleural effusions. The chest x- ray is most compatible with CHF. Progress note dated December 30, 2024. 84-year-old male seen today in room 373. The patient is currently on room air. He is not receiving any IV fluids. He is a DO NOT RESUSCITATE patient. Rocephin will be discontinued. His procalcitonin level was 0.14. He has been seen by cardiology. He was admitted primarily with a diagnosis of CHF. White count 19.4, hemoglobin 8.6, hematocrit 27.4, and platelet count 384,000. Sodium 131, potassium 4.5, chlorides 97, CO2 26, BUN 24, and creatinine 1.24. Glucose is 294. Calcium is 8.8. Progress note dated December 31, 2024. 84-year-old male seen today in room 373. The patient appears to be doing relatively well. He was admitted with a diagnosis of shortness of breath, likely related to congestive heart failure. We do not believe the patient has pneumonia. He is on room air. He is not receiving any IV fluids. No new laboratory data today, other than a glucose of 166. His procalcitonin level, was 0.14. The patient had a CT scan of the chest abdomen pelvis, which shows a right renal mass, which extends towards the duodenum, and possibly invades into the duodenum. The concern here is for renal cell carcinoma. There is an enlarged prostate, diverticular disease, and small pericardial effusion and amy ateral pleural effusions. Progress note dated January 01, 2025. This is a 84-year-old male who is seen today in room 373. He is getting saline at 20 cc an hour, and he is currently on room air. Family members are at the bedside. They have a lot of questions, all of which I tried to answer. In addition, the patient had a CT scan of the chest/abdomen/pelvis, which showed a right renal mass, which extends into the duodenum, potentially consistent with hypernephroma. Apparently the patient will have a colonoscopy. White count 20.8, hemoglobin 8.6, hematocrit 27.3, and a platelet count of 417,000. Sodium 132, potassium 4.1, chloride 94, CO2 28, BUN 25, creatinine 1.38. Glucose is 199. Calcium is 8.7. Progress note dated January 02, 2025. The patient is seen today in room 373. He continues on room air. He also continues on saline at 20 cc an hour. The patient is resting comfortably in bed. He is awake and alert. No respiratory distress or difficulty. Current laboratory data includes a white count 20.9, hemoglobin 8.7, hematocrit 27.2, and a platelet count of 423,000. Sodium 133, potassium 4.2, chloride 93, CO2 29, anion gap 11, BUN 24, creatinine 1.33. Glucose is 159. Calcium 8.6. The patient underwent an EGD with biopsy today, by one of the surgeons. It appeared to be relatively normal. The patient was to have a colonoscopy, but it could not be performed Because he did not take the prep. Objective - Vital Signs Vital signs: Vital Signs Temp 98.1 F 01/02/25 08:00 Pulse 90 01/02/25 12:00 Resp 16 01/02/25 08:00 BP 112/71 01/02/25 12:00 Pulse Ox 94 L 01/02/25 12:00 FiO2 Intake & Output 01/01/25 01/02/25 01/02/25 18:59 06:59 18:59 Intake Total 200 Output Total 850 Balance -850 200 Weight 65 kg 74.9 kg Intake: IV 200 Output: Urine 850 Other: Voiding Method Urinal Urinal Urinal - Exam No acute distress, oriented 3. Currently on room air. HEENT examination is grossly unremarkable. Mucous membranes are moist. No oral lesions. Neck supple. Full range of motion. No adenopathy thyromegaly or neck vein distention. Cardiovascular examination reveals an irregular rhythm and rate. S1-S2 normal. No S3 or S4. No discernible murmur noted. Lungs reveal mostly clear breath sounds. Minimal basilar crackles. No wheezes. No rhonchi. Abdomen soft bowel sounds are heard. No masses or tenderness. Extremities are intact. No cyanosis clubbing or edema. Skin is without rash or lesion. Neurologic examination is brief but nonfocal. - Labs CBC & Chem 7: 01/02/25 05:55 01/02/25 05:55 Labs: Abnormal Lab Results - Last 24 Hours (Table) 01/01/25 01/01/25 01/02/25 Range/Units 16:37 20:22 05:47 WBC (3.8-10.6) k/uL RBC (4.30-5.90) m/uL Hgb (13.0-17.5) gm/dL Hct (39.0-53.0) % Neutrophils # (1.3-7.7) k/uL Sodium (137-145) mmol/L Chloride (98-107) mmol/L BUN (9-20) mg/dL Creatinine (0.66-1.25) mg/dL Glucose (74-99) mg/dL POC Glucose (mg/dL) 226 H 178 H 154 H (70-110) mg/dL 01/02/25 01/02/25 01/02/25 Range/Units 05:55 05:55 10:59 WBC 20.9 H (3.8-10.6) k/uL RBC 2.86 L (4.30-5.90) m/uL Hgb 8.7 L (13.0-17.5) gm/dL Hct 27.2 L (39.0-53.0) % Neutrophils # 17.2 H (1.3-7.7) k/uL Sodium 133 L (137-145) mmol/L Chloride 93 L (98-107) mmol/L BUN 24 H (9-20) mg/dL Creatinine 1.33 H (0.66-1.25) mg/dL Glucose 124 H (74-99) mg/dL POC Glucose (mg/dL) 159 H (70-110) mg/dL Microbiology - Last 24 Hours (Table) 12/27/24 19:53 Blood Culture - Final Blood Assessment and Plan Assessment: Suspect acute CHF exacerbation, unknown type. Acute on chronic dyspnea, chest x-ray showing cardiomegaly with small to trace b ilateral pleural effusions. Right renal mass, potentially consistent with hypernephroma. Acute leukocytosis. Normocytic, normochromic anemia. Atrial fibrillation with controlled ventricular response. Permanent pacemaker. History of hypertension. Diabetes mellitus type 2. Plan: Plan dated December 29, 2024. The patient is seen today in room 373. Currently, the patient is on room air. He is not receiving any IV fluids. His most recent chest x-ray consistent with cardiomegaly, mild fluid overload. Labs, x-rays, and all medications are reviewed. The patient is a DO NOT RESUSCITATE patient. We will continue to follow the patient, make recommendations along the way. 50 minutes was spent with this patient, including the interview process, examination, review of pert inent labs, x-rays, medications, as well as discussing the diagnosis, treatment, and prognosis, with the patient, and the patient's bedside nurse. Plan dated December 30, 2024. The patient is seen today in room 373. The patient is currently on room air. Is not receiving any IV fluids. Chest x-ray from the , shows evidence of fluid overload, with cardiomegaly. Labs, x-rays, and all medications are reviewed. The patient is a DO NOT RESUSCITATE patient. 50 minutes was spent with the patient, including the process of interviewing him, examining him, reviewing pertinent laboratory data, x-rays, and medications, as well as discussing the diagnosis, treatment, and prognosis, with the patient, and the patient's bedside nurse. Plan dated December 31, 2024. The patient is seen today in room 373. The patient had a CT scan of the abdomen and pelvis, and chest, which revealed a right renal mass, likely consistent with hypernephroma/renal cell cancer. The patient is currently on room air. He is not receiving any IV fluids. His lungs are clear. Cardiac examination reveals an irregular rhythm rate, consistent with atrial fibrillation. We will continue to follow the patient, make recommendations along the way. The patient is a DO NOT RESUSCITATE patient. 50 minutes was spent with the patient, which included taking history, examining the patient, reviewing pertinent laboratory data, x- rays, medications, as well as discussing the diagnosis, treatment and prognosis with the patient, the patient's nursing staff, as well as the patient's family which were in the room. Dictation was produced using [employer] software. Please excuse any grammatical, word or spelling errors. Plan dated January 01, 2025. The patient is seen today in room 373. The patient is currently on room air. The patient is getting saline at 20 cc an hour. The patient had a CT scan of th e abdomen and pelvis, which showed evidence of possible hypernephroma, with invasion into the small intestines. Apparently the patient is scheduled to have a colonoscopy. Labs, x-rays, medications are reviewed. We will continue to follow the patient, make recommendations. From the pulmonary standpoint, the patient is stable. His admission diagnosis was primarily shortness of breath secondary to CHF. 50 minutes was spent with this patient, including time taking history, examining the patient, reviewing pertinent laboratory data, x-rays, medications, as well as discussing the diagnosis, treatment, prognosis with the patient, the patient's family, and the nursing staff. As mentioned above, the patient's family had a number of questions, all of which I answered. Dictation was produced using [employer] software. Please excuse any grammatical, word or spelling errors. Plan dated January 02, 2025. The patient is seen today in room 373. The patient is currently on room air. He is receiving saline at [address] scan of the abdomen and pelvis revealed a possible hypernephroma, with invasion into the small intestines. The patient did have an EGD today, but no tumor was noted. The patient did have biopsies to rule out H. pylori. Labs, x-rays, and medications are reviewed. The patient is being followed by cardiology, among other specialist. 50 minutes was spent with the patient, including time taking history, examining the patient, reviewing pertinent laboratory data, x-rays, medications, and discussing the diagnosis, treatment, prognosis, with the patient. No additional recommendations are made. We will continue to follow. Prognosis is guarded. Dictation was produced using [employer] software. Please excuse any grammatical, word or spelling errors. Time with Patient: Greater than 30
[2025-01-02 16:08] LABS: Glucose,Whole Blood 173 mg/dL (70-110)
[2025-01-02 20:15] LABS: Glucose,Whole Blood 150 mg/dL (70-110)
[2025-01-03 06:22] LABS: Glucose,Whole Blood 143 mg/dL (70-110)
[2025-01-03 09:50] LABS: Basophils # (A) 0.1 k/uL (0-0.2); Basophils % (A) 0 %; Eosinophils # (A) 0.3 k/uL (0-0.7); Eosinophils % (A) 1 %; HCT 27.7 % (39.0-53.0); HGB 8.6 gm/dL (13.0-17.5); Hypochromasia Marked; Lymphocytes # (A) 1.2 k/uL (1.0-4.8); Lymphocytes % (A) 5 %; MCHC 30.9 g/dL (31.0-37.0); Macrocytosis Slight; Mean Platelet Volume 7.7; Monocytes # (A) 0.6 k/uL (0-1.0); Monocytes % (A) 3 %; Neutrophils # (A) 19.4 k/uL (1.3-7.7); Neutrophils % (A) 89 %; Platelet Count 403 k/uL (150-450); RBC 2.85 m/uL (4.30-5.90); RDW 15.3 % (11.5-15.5); WBC 21.7 k/uL (3.8-10.6)
[2025-01-03 10:49] LABS: African American GFR (CKD) 55 (>60 ml/min/1.73 sqM); Anion Gap 11 mmol/L; Blood Urea Nitrogen 20 mg/dL (9-20); Calcium 8.6 mg/dL (8.4-10.2); Carbon Dioxide 26 mmol/L (22-30); Chloride 95 mmol/L (98-107); Glucose 154 mg/dL (74-99); Non-African American GFR(CKD) 47 (>60 ml/min/1.73 sqM); Potassium 3.9 mmol/L (3.5-5.1); Sodium 132 mmol/L (137-145)
[2025-01-03 11:18] LABS: Glucose,Whole Blood 183 mg/dL (70-110)
--- NOTE | 2025-01-03 12:56 | P.PN ---
Subjective Progress Note Date: 01/03/25 Hospital Course: 84 year old M with PMH AFib, pacemaker, DM, CAD, HTN presents to the ED for sh ortness of breath. Supplemental information obtained from family at bedside as patient is a poor historian. Family reports exertional shortness of breath, fatigue, unsteady gait that has been progressively getting worse over the past month. Family also reports melanotic stools and decreased appetite leading to 30 pound weight loss since May. Patient denies cough, fever or chills, nausea or vomiting, lower extremity edema, changes in urination. In the ED he underwent extensive evaluation. BP 160/71, HR 88, T 97.8F, RR 16, 98% on RA. CBC, Coag panel, CMP significant for WBC 21.1, RBC 2.77, Hg 8.4, Hct 26, Na 135, BUN 26, glu 236, alb 3.1. Lactic acid 3.2. BNP 1790. Trop 0.014, 0.02, 0.02. Procal 0.14. TSH 1.85. UA small LE with 39 WBCs. COVID, RSV, Flu neg. CXR cardiomegaly with small R and trace L pleural effusion. EKG A-Fib with Q waves in the inferior leads. Patient is admitted for further workup and management. Initially started on Rocephin/Azithromycin for PNA, Pulmonary consulted, pro-linda negative, antibiotics discontinued. He was started on Lasix IV and admitted for Cardiology evaluation. Echo showed EF 55-60% with diastolic dysfunction and moderate pericardial effusion, diuretics transitioned to Torsemide. Iron studies showed Fe 13, % sat 6.1, Ferritin 322 for which he was started on IV iron. Stool occult positive, Surgery consulted. Heme-Onc consulted for persistent le ukocytosis, CT chest/abd/pel ordered which showed right renal mass extending towards the duodenum, Urology is consulted as well. Plan for EGD and colonoscopy on 01/02, continue to hold Eliquis. EGD done and showed nonspecific patchy antral erythema, biopsies obtained for Helicobacter pylori, no erosions or ulcers, no hiatal hernia, no Rocha's esophagitis. Colonoscopy was not performed due to unfinished prep. Per urology, once patient underwent colonoscopy (planned for 01/04), he can proceed with a right radical nephrectomy. Urology recommends transfer to tertiary care, we will initiate pro cess after colonoscopy is done Per cardiology, Continue pravastatin, Toprol XL 25 mg daily, torsemide 10 mg daily, plan to continue torsemide at the time of discharge for about 1 month. he was also cleared by cardiology for surgical intervention with moderate risk of complication Subjective: Patient was seen and examined. multiple family members present during exam. Patient complains only of fatigue, denied chest pain, shortness of breath, abdominal pain Pertinent positives and negatives as discussed above, a complete review of systems was performed and all other systems are negative. Vitals Signs Reviewed. General: [nontoxic], [no distress], [appears at stated age] Derm: [warm], [dry] Head: [atraumatic], [normocephalic], [symmetric] Eyes: [EOMI], [no lid lag], [anicteric sclera] Mouth: [no lip lesion], [mucus membranes moist] Cardiovascular: [S1S2 reg], [no murmur] Lungs: [CTA bilateral], [no rhonchi, no rales] , [no accessory muscle use] Abdominal: [soft], [ nontender to palpation], [no guarding], [no appreciable organomegaly] Ext: [no gross muscle atrophy], [no edema], [no contractures] Neuro: [ CN II-XI grossly intact], [no focal neuro deficits] Psych: [Alert], [oriented], [appropriate affect] Data Reviewed Today: Pertinent Labs: WBC 21.7, hemoglobin 8.6, stable, platelet count normal, sodium 132, potassium 2.9, creatinine 1.35, blood glucose is controlled Assessment and Plan: Acute hypoxic respiratory failure secondary to acute CHF exacerbation Bilateral pleural effusion Pericardial effusion -Continue pravastatin, Toprol XL 25 mg daily, torsemide 10 mg daily, plan to continue torsemide at the time of discharge for about 1 month. SARS positive, unknown etiology, procalcitonin negative: Monitor off antibiotics, heme-onc following, monitor CBC, continue telemetry. Blood cultures negative to date Acute on chronic anemia Iron deficiency Persistent le likely secondary to upper GI bleed, occult blood positiveukocytosis Right renal mass, newly diagnosed -Holding Eliquis, on IV iron -Heme-onc, surgery consulted, plan for EGD and colonoscopy 01/02, EGD was done, colonoscopy could not be performed due to unfinished prep -Cleared for urological surgery by cardiology -Per urology, patient would benefit from transfer to tertiary care for nephrectomy, family is agreeable, would like to get colonoscopy done first Type II DM with hyperglycemia: Accu-Cheks, SSI, hypoglycemic precautions, will adjust insulins after patient is done with EGD and colonoscopy is planned for n.p.o. paroxysmal A-fib: Eliquis on hold due to anemia, metoprolol 25 daily Hypertension: Metoprolol as above DVT ppx: Eliquis, on hold Anticipated discharge place: Pending clinical stability, likely transfer to tertiary center Anticipated discharge time: Pending clinical stability Objective - Vital Signs Vital signs: Vital Signs Temp 98.2 F 01/03/25 11:24 Pulse 63 01/03/25 11:24 Resp 16 01/03/25 11:24 BP 114/63 01/03/25 11:24 Pulse Ox 98 01/03/25 11:24 FiO2 Intake & Output 01/02/25 01/03/25 01/03/25 18:59 06:59 18:59 Intake Total 200 Output Total 400 600 Balance -200 -600 Weight 79.5 kg Intake: IV 200 Output: Urine 400 600 Other: Voiding Method Urinal Urinal - Labs CBC & Chem 7: 01/03/25 09:24 01/03/25 09:24 Labs: Abnormal Lab Results - Last 24 Hours (Table) 01/02/25 01/02/25 01/03/25 Range/Units 16:07 20:13 06:21 WBC (3.8-10.6) k/uL RBC (4.30-5.90) m/uL Hgb (13.0-17.5) gm/dL Hct (39.0-53.0) % MCHC (31.0-37.0) g/dL Neutrophils # (1.3-7.7) k/uL Sodium (137-145) mmol/L Chloride (98-107) mmol/L Creatinine (0.66-1.25) mg/dL Glucose (74-99) mg/dL POC Glucose (mg/dL) 173 H 150 H 143 H (70-110) mg/dL 01/03/25 01/03/25 01/03/25 Range/Units 09:24 09:24 11:13 WBC 21.7 H (3.8-10.6) k/uL RBC 2.85 L (4.30-5.90) m/uL Hgb 8.6 L (13.0-17.5) gm/dL Hct 27.7 L (39.0-53.0) % MCHC 30.9 L (31.0-37.0) g/dL Neutrophils # 19.4 H (1.3-7.7) k/uL Sodium 132 L (137-145) mmol/L Chloride 95 L (98-107) mmol/L Creatinine 1.35 H (0.66-1.25) mg/dL Glucose 154 H (74-99) mg/dL POC Glucose (mg/dL) 183 H (70-110) mg/dL
--- NOTE | 2025-01-03 13:41 | P.PN ---
Progress Note - Text Progress Note Date: 01/03/25 CHIEF COMPLAINT: shortness of breath HISTORY OF PRESENT ILLNESS: NAEO. Patient tolerating prep. PHYSICAL EXAM: VITAL SIGNS: Reviewed. GENERAL: Well-developed in no acute distress. ABDOMEN: Soft. Nondistended. Nontender. NEUROLOGIC: sleeping comfortably ASSESSMENT: 1. Anemia with stool positive for occult blood and melanotic stools 2. Right renal mass which extends towards the duodenum and possibly invades into and partially obstructs the duodenum noted on abdominal CT scan 3. Unexplained weight loss of 30 pounds 4. Acute CHF exacerbation has been transitioned to oral diuretics PLAN: -Plan for colonoscopy tomorrow -NPO/midnight Raghu Back DO [facility] [phone]
[2025-01-03 16:07] LABS: Glucose,Whole Blood 147 mg/dL (70-110)
--- NOTE | 2025-01-03 16:28 | P.PN ---
Subjective Progress Note Date: 01/02/25 HISTORY OF PRESENTING ILLNESS: Patient is a 84-year-old male with past medical history of atrial fibrillation, PPM, type 2 diabetes. He presented to the hospital because of increased worsening shortness of breath along with minimal exertion which was progressively getting worse. Cardiology was consulted because of mild elevated NT proBNP and prior history of atrial fibrillation. Diagostics: Admission Labs: Leukocytosis WBC 19.9, anemia hemoglobin 7.7, elevated lactate of 2.2, troponin negative at 0.02, creatinine 1.18, glucose 236, NT-proBNP 1790 Admission EKG: Atrial paced V sensed rhythm Cardio relavant imaging: Chest x-ray shows possible right lower lobe infiltrates consistent with pneumonia. 12/29 Patient seen and examined. She states that her shortness of breath is better. No lower extremity edema. Blood pressure 90/53, heart rate 70, pulse ox 99% on room air. Telemetry sinus rhythm/paced rhythm. Repeat blood work reveals hemoglobin 8.4, BUN 21 creatinine 1.19. Chest x-ray reveals persistent cardiomegaly with small bilateral pleural effusions. Correlate for CHF exacerbation or fluid overload state. Associated bibasilar opacities favor compressive atelectasis. A1c 6.6. TSH 1.85. Triglycerides 88, cholesterol 121, LDL 73. Procalcitonin 0.14. Echocardiogram report is pending. 12/30 Patient is seen and examined. He is doing well today. Echocardiogram reveals EF of 55 to 60%, moderate pericardial effusion which appears to be chronic with thickened pericardium and fibrinous exudative material on the surface of the anterior RV wall consistent with chronic effusion. All information including the results of testing have been reviewed with the patient, his family at the bedside as well as his grandson over the phone. Patient does not require For the pericardial effusion. Patient's blood pressure is on the lower side but seems to have no symptoms from that. Patient states he is eating okay. He denies chest pain. Anemia seems to be chronic. Blood pressure 98/55, heart rate 80, pulse ox 97% on room air. Repeat blood work reveals hemoglobin 8.6, WBC 19.4, BUN 24 creatinine 1.24, sodium 131, potassium 4.5. 12/31 Patient seen and examined. Today, patient underwent CT chest/abd/pelvis ordered by oncology following a positive stool for occult blood. This was suspicious for renal mass. Results discussed with the patient and family but oncology will p rovide more detail. We recommended with the family that we perform CTA of the chest to rule out PE. From a cardiac perspective, he is stable. Patient's family states that he has had weight loss, loss of appetite, generalized weakness. Blood pressure 104/58, heart rate 64, pulse ox 99% on room air. General surgery is on consult for possible endoscopy. 01/01 Patient seen and examined. Family states that plan is for endoscopy. Patient has been scheduled for EGD and colonoscopy tomorrow and Eliquis has been placed on hold. Telemetry is atrial fibrillation with controlled rate. Regarding the renal mass, patient has been seen by oncology and recommended right radical nephrectomy with plan for referral to [facility] [place]. Blood pressure 112/70, heart rate 86, pulse ox 95% on room air. Repeat blood work reveals WBC 20.8, hemoglobin 8.6, BUN 25 creatinine 1.38, sodium 132, potassium 4.1. 01/02/2024 Patient seen in bedside this a.m. No new cardiovascular events Patient's family is concerned that pacemaker might be malfunctioning. However it appears to be functioning appropriately and I did provide them reassurance. They would like to get his pacemaker interrogated. PHYSICAL EXAMINATION: Neck: Brisk carotid upstroke, no jugular venous distention. Lungs: Clear to auscultation. Heart: Irregular pulses, S1-S2, , no murmur or rub. Abdomen: Soft nontender, positive bowel sounds. Extremities: No edema, intact distal pulses. Neuro: Alert, oritented, no focal deficits. Detailed neuro exam was not performed. ASSESSMENT: # Acute hypoxic respiratory failure # Sepsis with possible pneumonia # History of paroxysmal atrial fibrillation, currently rate controlled # History of PPM # Lactic acidosis # Elevated NT proBNP however less likely congestive heart failure from physical examination. Pericardial effusion Persistent leukocytosis Renal mass PLAN: Obtain pacemaker interrogation Hold Farxiga as patient is planned for surgical intervention including n.p.o. status for EGD and colonoscopy for tomorrow Hold Eliquis for EGD and colonoscopy Continue pravastatin, Toprol XL 25 mg daily, torsemide 10 mg daily, plan to continue torsemide at the time of discharge for about 1 month. Regarding nephrectomy, patient is cleared for surgical intervention with moderate risk of complication. No absolute contraindications for proceeding with surgery. Patient will require close hemodynamic monitoring in the perioperative period. Objective - Vital Signs Vital signs: Vital Signs Temp 98.2 F 01/03/25 11:24 Pulse 63 01/03/25 14:00 Resp 16 01/03/25 14:00 BP 114/63 01/03/25 11:24 Pulse Ox 98 01/03/25 11:24 FiO2 Intake & Output 01/02/25 01/03/25 01/03/25 18:59 06:59 18:59 Intake Total 200 Output Total 400 600 Balance -200 -600 Weight 79.5 kg Intake: IV 200 Output: Urine 400 600 Other: Voiding Method Urinal Urinal - Labs CBC & Chem 7: 01/03/25 09:24 01/03/25 09:24 Labs: Abnormal Lab Results - Last 24 Hours (Table) 01/02/25 01/03/25 01/03/25 Range/Units 20:13 06:21 09:24 WBC 21.7 H (3.8-10.6) k/uL RBC 2.85 L (4.30-5.90) m/uL Hgb 8.6 L (13.0-17.5) gm/dL Hct 27.7 L (39.0-53.0) % MCHC 30.9 L (31.0-37.0) g/dL Neutrophils # 19.4 H (1.3-7.7) k/uL Sodium (137-145) mmol/L Chloride (98-107) mmol/L Creatinine (0.66-1.25) mg/dL Glucose (74-99) mg/dL POC Glucose (mg/dL) 150 H 143 H (70-110) mg/dL 01/03/25 01/03/25 01/03/25 Range/Units 09:24 11:13 16:06 WBC (3.8-10.6) k/uL RBC (4.30-5.90) m/uL Hgb (13.0-17.5) gm/dL Hct (39.0-53.0) % MCHC (31.0-37.0) g/dL Neutrophils # (1.3-7.7) k/uL Sodium 132 L (137-145) mmol/L Chloride 95 L (98-107) mmol/L Creatinine 1.35 H (0.66-1.25) mg/dL Glucose 154 H (74-99) mg/dL POC Glucose (mg/dL) 183 H 147 H (70-110) mg/dL
--- NOTE | 2025-01-03 16:31 | P.PN ---
Subjective Progress Note Date: 01/03/25 HISTORY OF PRESENTING ILLNESS: Patient is a 84-year-old male with past medical history of atrial fibrillation, PPM, type 2 diabetes. He presented to the hospital because of increased worsening shortness of breath along with minimal exertion which was progressively getting worse. Cardiology was consulted because of mild elevated NT proBNP and prior history of atrial fibrillation. Diagostics: Admission Labs: Leukocytosis WBC 19.9, anemia hemoglobin 7.7, elevated lactate of 2.2, troponin negative at 0.02, creatinine 1.18, glucose 236, NT-proBNP 1790 Admission EKG: Atrial paced V sensed rhythm Cardio relavant imaging: Chest x-ray shows possible right lower lobe infiltrates consistent with pneumonia. 12/29 Patient seen and examined. She states that her shortness of breath is better. No lower extremity edema. Blood pressure 90/53, heart rate 70, pulse ox 99% on room air. Telemetry sinus rhythm/paced rhythm. Repeat blood work reveals hemoglobin 8.4, BUN 21 creatinine 1.19. Chest x-ray reveals persistent cardiomegaly with small bilateral pleural effusions. Correlate for CHF exacerbation or fluid overload state. Associated bibasilar opacities favor compressive atelectasis. A1c 6.6. TSH 1.85. Triglycerides 88, cholesterol 121, LDL 73. Procalcitonin 0.14. Echocardiogram report is pending. 12/30 Patient is seen and examined. He is doing well today. Echocardiogram reveals EF of 55 to 60%, moderate pericardial effusion which appears to be chronic with thickened pericardium and fibrinous exudative material on the surface of the anterior RV wall consistent with chronic effusion. All information including the results of testing have been reviewed with the patient, his family at the bedside as well as his grandson over the phone. Patient does not require For the pericardial effusion. Patient's blood pressure is on the lower side but seems to have no symptoms from that. Patient states he is eating okay. He denies chest pain. Anemia seems to be chronic. Blood pressure 98/55, heart rate 80, pulse ox 97% on room air. Repeat blood work reveals hemoglobin 8.6, WBC 19.4, BUN 24 creatinine 1.24, sodium 131, potassium 4.5. 12/31 Patient seen and examined. Today, patient underwent CT chest/abd/pelvis ordered by oncology following a positive stool for occult blood. This was suspicious for renal mass. Results discussed with the patient and family but oncology will p rovide more detail. We recommended with the family that we perform CTA of the chest to rule out PE. From a cardiac perspective, he is stable. Patient's family states that he has had weight loss, loss of appetite, generalized weakness. Blood pressure 104/58, heart rate 64, pulse ox 99% on room air. General surgery is on consult for possible endoscopy. 01/01 Patient seen and examined. Family states that plan is for endoscopy. Patient has been scheduled for EGD and colonoscopy tomorrow and Eliquis has been placed on hold. Telemetry is atrial fibrillation with controlled rate. Regarding the renal mass, patient has been seen by oncology and recommended right radical nephrectomy with plan for referral to [facility]. Blood pressure 112/70, heart rate 86, pulse ox 95% on room air. Repeat blood work reveals WBC 20.8, hemoglobin 8.6, BUN 25 creatinine 1.38, sodium 132, potassium 4.1. 01/02/2024 Patient seen in bedside this a.m. No new cardiovascular events Patient's family is concerned that pacemaker might be malfunctioning. However it appears to be functioning appropriately and I did provide them reassurance. They would like to get his pacemaker interrogated. 01/03/2021 BP 114/63, heart rate 63 bpm WBC 21, hemoglobin 8.6, BUN 20, creatinine 1.3 PHYSICAL EXAMINATION: Neck: Brisk carotid upstroke, no jugular venous distention. Lungs: Clear to auscultation. Heart: Irregular pulses, S1-S2, , no murmur or rub. Abdomen: Soft nontender, positive bowel sounds. Extremities: No edema, intact distal pulses. Neuro: Alert, oritented, no focal deficits. Detailed neuro exam was not performed. ASSESSMENT: # Acute hypoxic respiratory failure # Sepsis with possible pneumonia # History of paroxysmal atrial fibrillation, currently rate controlled # History of PPM # Lactic acidosis # Elevated NT proBNP however less likely congestive heart failure from physical examination. # Pericardial effusion # Persistent leukocytosis # Renal mass PLAN: Obtain pacemaker interrogation. If pacemaker interrogation within normal limit which I will dissipate will be, we can sign off tomorrow a.m. Hold Farxiga as patient is planned for surgical intervention including n.p.o. status for EGD and colonoscopy for tomorrow Hold Eliquis for EGD and colonoscopy Continue pravastatin, Toprol XL 25 mg daily, torsemide 10 mg daily, plan to continue torsemide at the time of discharge for about 1 month. Regarding nephrectomy, patient is cleared for surgical intervention with moderate risk of complication. No absolute contraindications for proceeding with surgery. Patient will require close hemodynamic monitoring in the perioperative period. Objective - Vital Signs Vital signs: Vital Signs Temp 98.2 F 01/03/25 11:24 Pulse 63 01/03/25 14:00 Resp 16 01/03/25 14:00 BP 114/63 01/03/25 11:24 Pulse Ox 98 01/03/25 11:24 FiO2 Intake & Output 01/02/25 01/03/25 01/03/25 18:59 06:59 18:59 Intake Total 200 Output Total 400 600 Balance -200 -600 Weight 79.5 kg Intake: IV 200 Output: Urine 400 600 Other: Voiding Method Urinal Urinal - Labs CBC & Chem 7: 01/03/25 09:24 01/03/25 09:24 Labs: Abnormal Lab Results - Last 24 Hours (Table) 01/02/25 01/03/25 01/03/25 Range/Units 20:13 06:21 09:24 WBC 21.7 H (3.8-10.6) k/uL RBC 2.85 L (4.30-5.90) m/uL Hgb 8.6 L (13.0-17.5) gm/dL Hct 27.7 L (39.0-53.0) % MCHC 30.9 L (31.0-37.0) g/dL Neutrophils # 19.4 H (1.3-7.7) k/uL Sodium (137-145) mmol/L Chloride (98-107) mmol/L Creatinine (0.66-1.25) mg/dL Glucose (74-99) mg/dL POC Glucose (mg/dL) 150 H 143 H (70-110) mg/dL 01/03/25 01/03/25 01/03/25 Range/Units 09:24 11:13 16:06 WBC (3.8-10.6) k/uL RBC (4.30-5.90) m/uL Hgb (13.0-17.5) gm/dL Hct (39.0-53.0) % MCHC (31.0-37.0) g/dL Neutrophils # (1.3-7.7) k/uL Sodium 132 L (137-145) mmol/L Chloride 95 L (98-107) mmol/L Creatinine 1.35 H (0.66-1.25) mg/dL Glucose 154 H (74-99) mg/dL POC Glucose (mg/dL) 183 H 147 H (70-110) mg/dL
[2025-01-03 20:26] LABS: Glucose,Whole Blood 173 mg/dL (70-110)
[2025-01-04 06:13] LABS: Glucose,Whole Blood 136 mg/dL (70-110)
[2025-01-04 07:17] LABS: Basophils # (A) 0.1 k/uL (0-0.2); Basophils % (A) 0 %; Eosinophils # (A) 0.3 k/uL (0-0.7); Eosinophils % (A) 2 %; HCT 26.9 % (39.0-53.0); HGB 8.3 gm/dL (13.0-17.5); Hypochromasia Moderate; Lymphocytes # (A) 1.4 k/uL (1.0-4.8); Lymphocytes % (A) 7 %; MCH 29.9 pg (25.0-35.0); MCHC 30.9 g/dL (31.0-37.0); MCV 96.9 fL (80.0-100.0); Macrocytosis Slight; Mean Platelet Volume 8.4; Monocytes # (A) 1.2 k/uL (0-1.0); Monocytes % (A) 6 %; Neutrophils # (A) 17.4 k/uL (1.3-7.7); Neutrophils % (A) 85 %; Platelet Count 403 k/uL (150-450); RBC 2.78 m/uL (4.30-5.90); RDW 15.9 % (11.5-15.5); WBC 20.5 k/uL (3.8-10.6)
[2025-01-04 08:14] LABS: African American GFR (CKD) 60 (>60 ml/min/1.73 sqM); Anion Gap 10 mmol/L; Blood Urea Nitrogen 17 mg/dL (9-20); Calcium 8.5 mg/dL (8.4-10.2); Carbon Dioxide 27 mmol/L (22-30); Chloride 94 mmol/L (98-107); Glucose 117 mg/dL (74-99); Non-African American GFR(CKD) 52 (>60 ml/min/1.73 sqM); Potassium 3.8 mmol/L (3.5-5.1); Sodium 131 mmol/L (137-145)
[2025-01-04 11:44] LABS: Glucose,Whole Blood 149 mg/dL (70-110)
--- NOTE | 2025-01-04 14:14 | P.PN ---
Subjective HISTORY OF PRESENT ILLNESS: Patient is a 84-year-old male with past medical history of atrial fibrillation, PPM, type 2 diabetes. He presented to the hospital because of increased worsening shortness of breath along with minimal exertion which was progressively getting worse. Cardiology was consulted because of mild elevated NT proBNP and prior history of atrial fibrillation. Diagostics: Admission Labs: Leukocytosis WBC 19.9, anemia hemoglobin 7.7, elevated lactate of 2.2, troponin negative at 0.02, creatinine 1.18, glucose 236, NT-proBNP 1790 Admission EKG: Atrial paced V sensed rhythm Cardio relavant imaging: Chest x-ray shows possible right lower lobe infiltrates consistent with pneumonia. 12/29 Patient seen and examined. She states that her shortness of breath is better. No lower extremity edema. Blood pressure 90/53, heart rate 70, pulse ox 99% on room air. Telemetry sinus rhythm/paced rhythm. Repeat blood work reveals hemoglobin 8.4, BUN 21 creatinine 1.19. Chest x-ray reveals persistent cardiomegaly with small bilateral pleural effusions. Correlate for CHF exacerbation or fluid overload state. Associated bibasilar opacities favor compressive atelectasis. A1c 6.6. TSH 1.85. Triglycerides 88, cholesterol 121 , LDL 73. Procalcitonin 0.14. Echocardiogram report is pending. 12/30 Patient is seen and examined. He is doing well today. Echocardiogram reveals EF of 55 to 60%, moderate pericardial effusion which appears to be chronic with thickened pericardium and fibrinous exudative material on the surface of the anterior RV wall consistent with chronic effusion. All information including the results of testing have been reviewed with the patient, his family at the bedside as well as his grandson over the phone. Patient does not require For the pericardial effusion. Patient's blood pressure is on the lower side but seems to have no symptoms from that. Patient states he is eating okay. He denies chest pain. Anemia seems to be chronic. Blood pressure 98/55, heart rate 80, pulse ox 97% on room air. Repeat blood work reveals hemoglobin 8.6, WBC 19.4, BUN 24 creatinine 1.24, sodium 131, potassium 4.5. 12/31 Patient seen and examined. Today, patient underwent CT chest/abd/pelvis ordered by oncology following a positive stool for occult blood. This was suspicious for renal mass. Results discussed with the patient and family but oncology will provide more detail. We recommended with the family that we perform CTA of the chest to rule out PE. From a cardiac perspective, he is stable. Patient's family states that he has had weight loss, loss of appetite, generalized weakness. Blood pressure 104/58, heart rate 64, pulse ox 99% on room air. General surgery is on consult for possible endoscopy. 01/01 Patient seen and examined. Family states that plan is for endoscopy. Patient has been scheduled for EGD and colonoscopy tomorrow and Eliquis has been placed on hold. Telemetry is atrial fibrillation with controlled rate. Regarding the renal mass, patient has been seen by oncology and recommended right radical nephrectomy with plan for referral to [facility]. Blood pressure 112/70, heart rate 86, pulse ox 95% on room air. Repeat blood work reveals WBC 20.8, hemoglobin 8.6, BUN 25 creatinine 1.38, sodium 132, potassium 4.1. 01/02/2024 Patient seen in bedside this a.m. No new cardiovascular events Patient's family is concerned that pacemaker might be malfunctioning. However it appears to be functioning appropriately and I did provide them reassurance. They would like to get his pacemaker interrogated. 01/03/2021 BP 114/63, heart rate 63 bpm WBC 21, hemoglobin 8.6, BUN 20, creatinine 1.3 01/04/2025 Patient examined this morning at the bedside. Patient's family is present. Patient currently denies chest pain or pressure. He denies shortness of breath. Hemoglobin is stable today 8.3. His Eliquis remains on hold. He underwent EGD on 01/02/2025 revealing nonulcerative dyspepsia. He is scheduled to undergo colonoscopy today with general surgery. PHYSICAL EXAM: VITAL SIGNS: Reviewed. GENERAL: Well-developed in no acute distress. NECK: Supple. No JVD or thyromegaly LUNGS: Respirations even and unlabored. Lungs essentially clear to auscultation bilaterally. HEART: Regular rate and rhythm. S1 and S2 heard. EXTREMITIES: Normal range of motion. No clubbing or cyanosis. Peripheral pulses intact. No lower extremity edema ASSESSMENT: Acute hypoxic respiratory failure Sepsis with possible pneumonia History of paroxysmal atrial fibrillation, currently rate controlled History of PPM Lactic acidosis Elevated NT proBNP however less likely congestive heart failure from physical examination. Pericardial effusion Persistent leukocytosis Renal mass PLAN: Continue current cardiac medications Eliquis remains on hold. Continue hemoglobin. Patient scheduled for colonoscopy today with general surgery Interrogate pacemaker ([employer]) Further recommendations pending patient course Nurse practitioner note has been reviewed by physician. Signing provider agrees with the documented findings, assessment, and plan of care documented by SHELL GRADER as a scribe. Objective - Vital Signs Vital signs: Vital Signs Temp 97.5 F L 01/04/25 12:15 Pulse 82 01/04/25 12:15 Resp 16 01/04/25 12:15 BP 118/72 01/04/25 12:15 Pulse Ox 97 01/04/25 12:15 FiO2 Intake & Output 01/03/25 01/04/25 01/04/25 18:59 06:59 18:59 Output Total 600 125 Balance -600 -125 Weight 74.1 kg Output: Urine 600 125 Other: Voiding Method Urinal - Labs CBC & Chem 7: 01/04/25 05:58 01/04/25 05:58 Labs: Abnormal Lab Results - Last 24 Hours (Table) 01/03/25 01/03/25 01/04/25 Range/Units 16:06 20:23 05:58 WBC 20.5 H (3.8-10.6) k/uL RBC 2.78 L (4.30-5.90) m/uL Hgb 8.3 L (13.0-17.5) gm/dL Hct 26.9 L (39.0-53.0) % MCHC 30.9 L (31.0-37.0) g/dL RDW 15.9 H (11.5-15.5) % Neutrophils # 17.4 H (1.3-7.7) k/uL Monocytes # 1.2 H (0-1.0) k/uL Sodium (137-145) mmol/L Chloride (98-107) mmol/L Glucose (74-99) mg/dL POC Glucose (mg/dL) 147 H 173 H (70-110) mg/dL 01/04/25 01/04/25 01/04/25 Range/Units 05:58 06:11 11:42 WBC (3.8-10.6) k/uL RBC (4.30-5.90) m/uL Hgb (13.0-17.5) gm/dL Hct (39.0-53.0) % MCHC (31.0-37.0) g/dL RDW (11.5-15.5) % Neutrophils # (1.3-7.7) k/uL Monocytes # (0-1.0) k/uL Sodium 131 L (137-145) mmol/L Chloride 94 L (98-107) mmol/L Glucose 117 H (74-99) mg/dL POC Glucose (mg/dL) 136 H 149 H (70-110) mg/dL
[2025-01-04] MEDS ORDERED: PROPOFOL 10 MG/ML 20 ML VIAL IV ONE (14:34)
[2025-01-04] MEDS: LACTATED RINGERS 1,000 ML IV ONE (14:34)
--- NOTE | 2025-01-04 16:30 | P.PN ---
Subjective Progress Note Date: 01/04/25 Hospital Course: 84 year old M with PMH AFib, pacemaker, DM, CAD, HTN presents to the ED for sh ortness of breath. Supplemental information obtained from family at bedside as patient is a poor historian. Family reports exertional shortness of breath, fatigue, unsteady gait that has been progressively getting worse over the past month. Family also reports melanotic stools and decreased appetite leading to 30 pound weight loss since May. Patient denies cough, fever or chills, nausea or vomiting, lower extremity edema, changes in urination. In the ED he underwent extensive evaluation. BP 160/71, HR 88, T 97.8F, RR 16, 98% on RA. CBC, Coag panel, CMP significant for WBC 21.1, RBC 2.77, Hg 8.4, Hct 26, Na 135, BUN 26, glu 236, alb 3.1. Lactic acid 3.2. BNP 1790. Trop 0.014, 0.02, 0.02. Procal 0.14. TSH 1.85. UA small LE with 39 WBCs. COVID, RSV, Flu neg. CXR cardiomegaly with small R and trace L pleural effusion. EKG A-Fib with Q waves in the inferior leads. Patient is admitted for further workup and management. Initially started on Rocephin/Azithromycin for PNA, Pulmonary consulted, pro-linda negative, antibiotics discontinued. He was started on Lasix IV and admitted for Cardiology evaluation. Echo showed EF 55-60% with diastolic dysfunction and moderate pericardial effusion, diuretics transitioned to Torsemide. Iron studies showed Fe 13, % sat 6.1, Ferritin 322 for which he was started on IV iron. Stool occult positive, Surgery consulted. Heme-Onc consulted for persistent le ukocytosis, CT chest/abd/pel ordered which showed right renal mass extending towards the duodenum, Urology is consulted as well. Plan for EGD and colonoscopy on 01/02, continue to hold Eliquis. EGD done and showed nonspecific patchy antral erythema, biopsies obtained for Helicobacter pylori, no erosions or ulcers, no hiatal hernia, no Rocha's esophagitis. Colonoscopy was not performed due to unfinished prep. Per urology, once patient underwent colonoscopy (planned for 01/04), he can proceed with a right radical nephrectomy. Urology recommends transfer to tertiary care, we will initiate pro cess after colonoscopy is done Per cardiology, Continue pravastatin, Toprol XL 25 mg daily, torsemide 10 mg daily, plan to continue torsemide at the time of discharge for about 1 month. he was also cleared by cardiology for surgical intervention with moderate risk of complication Subjective: Patient was seen and examined. Patient complains only of fatigue, denied chest pain, shortness of breath, abdominal pain Pertinent positives and negatives as discussed above, a complete review of syst ems was performed and all other systems are negative. Vitals Signs Reviewed. General: [nontoxic], [no distress], [appears at stated age] Derm: [warm], [dry] Head: [atraumatic], [normocephalic], [symmetric] Eyes: [EOMI], [no lid lag], [anicteric sclera] Mouth: [no lip lesion], [mucus membranes moist] Cardiovascular: [S1S2 reg], [no murmur] Lungs: [CTA bilateral], [no rhonchi, no rales] , [no accessory muscle use] Abdominal: [soft], [ nontender to palpation], [no guarding], [no appreciable org anomegaly] Ext: [no gross muscle atrophy], [no edema], [no contractures] Neuro: [ CN II-XI grossly intact], [no focal neuro deficits] Psych: [Alert], [oriented], [appropriate affect] Data Reviewed Today: Pertinent Labs: Leukocytosis 20.5, stable hemoglobin 8.3, platelet count normal at 403, sodium 131, potassium 2.8, creatinine 1.25, glucose is well-controlled Assessment and Plan: Acute hypoxic respiratory failure secondary to acute CHF exacerbation Bilateral pleural effusion Pericardial effusion -Continue pravastatin, Toprol XL 25 mg daily, torsemide 10 mg daily, plan to continue torsemide at the time of discharge for about 1 month. SARS positive, unknown etiology, procalcitonin negative: Monitor off antibiotics, heme-onc following, monitor CBC, continue telemetry. Blood cultures negative to date Acute on chronic anemia Iron deficiency Persistent le likely secondary to upper GI bleed, occult blood positiveukocytosis Right renal mass, newly diagnosed -Holding Eliquis, on IV iron -Heme-onc, surgery consulted, plan for EGD and colonoscopy 01/02, EGD was done, colonoscopy planned for 01/04 -Cleared for urological surgery by cardiology -Per urology, patient would benefit from transfer to tertiary care for nephrectomy, family is agreeable, would like to get colonoscopy done first Type II DM with hyperglycemia: Accu-Cheks, SSI, hypoglycemic precautions, will adjust insulins after patient is done with EGD and colonoscopy is planned for n.p.o. paroxysmal A-fib: Eliquis on hold due to anemia, metoprolol 25 daily Hypertension: Metoprolol as above DVT ppx: Eliquis, on hold Anticipated discharge place: Pending clinical stability, likely transfer to tertiary center Anticipated discharge time: Pending clinical stability Objective - Vital Signs Vital signs: Vital Signs Temp 97.5 F L 01/04/25 12:15 Pulse 82 01/04/25 12:15 Resp 16 01/04/25 12:15 BP 118/72 01/04/25 12:15 Pulse Ox 97 01/04/25 12:15 FiO2 Intake & Output 01/03/25 01/04/25 01/04/25 18:59 06:59 18:59 Intake Total 200 Output Total 600 125 Balance -600 -125 200 Weight 74.1 kg 74.1 kg Intake: IV 200 Output: Urine 600 125 Other: Voiding Method Urinal - Labs CBC & Chem 7: 01/04/25 05:58 01/04/25 05:58 Labs: Abnormal Lab Results - Last 24 Hours (Table) 01/03/25 01/04/25 01/04/25 Range/Units 20:23 05:58 05:58 WBC 20.5 H (3.8-10.6) k/uL RBC 2.78 L (4.30-5.90) m/uL Hgb 8.3 L (13.0-17.5) gm/dL Hct 26.9 L (39.0-53.0) % MCHC 30.9 L (31.0-37.0) g/dL RDW 15.9 H (11.5-15.5) % Neutrophils # 17.4 H (1.3-7.7) k/uL Monocytes # 1.2 H (0-1.0) k/uL Sodium 131 L (137-145) mmol/L Chloride 94 L (98-107) mmol/L Glucose 117 H (74-99) mg/dL POC Glucose (mg/dL) 173 H (70-110) mg/dL 01/04/25 01/04/25 Range/Units 06:11 11:42 WBC (3.8-10.6) k/uL RBC (4.30-5.90) m/uL Hgb (13.0-17.5) gm/dL Hct (39.0-53.0) % MCHC (31.0-37.0) g/dL RDW (11.5-15.5) % Neutrophils # (1.3-7.7) k/uL Monocytes # (0-1.0) k/uL Sodium (137-145) mmol/L Chloride (98-107) mmol/L Glucose (74-99) mg/dL POC Glucose (mg/dL) 136 H 149 H (70-110) mg/dL
--- NOTE | 2025-01-04 17:01 | P.OP ---
Date of Procedure: 01/04/25 Preoperative Diagnosis: GI Bleed Postoperative Diagnosis: Diverticulosis Anesthesia: MAC Surgeon: Raghu Back Pathology: none sent Condition: stable Disposition: PACU Description of Procedure: After informed consent was obtained, the patient was placed in the left lateral position and the above medications were titrated with adequate sedation. Monitoring was provided throughout the entire procedure. Digital rectal exam was performed revealing normal sphincter tone and no external hemorrhoids. The colonoscope was inserted into rectum and advanced under direct visualization, without difficulty, to the cecum, where the cecal strap, appendiceal orifice, and the ileocecal valve were identified. The quality of the preparation was suboptimal. The colonoscope was then withdrawn while carefully examining the mucosa. The colonic mucosa appeared normal with normal vascularity and haustral markings. No masses, polyps, or AVM/s. Diverticula were seen. On retroflexed view in the rectum, there are small internal hemorrhoids. The endoscope was removed and the procedure terminated. The patient tolerated the procedure well without complications.
[2025-01-04 17:02] LABS: Glucose,Whole Blood 196 mg/dL (70-110)
--- NOTE | 2025-01-04 20:13 | P.PN ---
Subjective Progress Note Date: 01/04/25 On 01/04/2025, the patient is being seen for a follow-up. The patient denies having any significant chest pain or shortness of breath. The patient is scheduled to undergo a colonoscopy today as part of a work of of his anemia. Hemoglobin today is at 8.3. Patient underwent an EGD on 01/02/2025 revealing none ulcerative dysplasia and there was minimal nonspecific patchy antral erythema. On today's evaluation, the patient's white cell count of 20.5 with a heme of 8.3 and a platelet count of 403. BUN is 17 with a creatinine of 1.2 and a sodium levels at 131 with a potassium level of 3.8. The patient continues to be on IV iron. IV fluids are currently at KVO. Remains on Toprol 25 mg p.o. daily. Remains on IV Protonix. Oxygenation is stable and the patient's pulse ox is 96% on room air oxygen. CAT scan of the chest abdomen and pelvis that was done on 12/31/2024 showed a right renal mass which extended toward the duodenum possibly invading into and partially obstructing the duodenum. This is compatible with renal cell carcinoma. The patient also has enlargement of the prostate and diverticulosis and small pericardial effusion and bilateral pleural effusions. Objective - Vital Signs Vital signs: Vital Signs Temp 97.5 F L 01/04/25 12:15 Pulse 82 01/04/25 12:15 Resp 16 01/04/25 12:15 BP 118/72 01/04/25 12:15 Pulse Ox 97 01/04/25 12:15 FiO2 Intake & Output 01/03/25 01/04/25 01/04/25 18:59 06:59 18:59 Output Total 600 125 Balance -600 -125 Weight 74.1 kg Output: Urine 600 125 Other: Voiding Method Urinal - Exam GENERAL EXAM: Alert, 84-year-old male, comfortable in no apparent distress while at rest. HEAD: Normocephalic and atraumatic EYES: Normal reaction of pupils, equal size. NOSE: Clear with pink turbinates. THROAT: No erythema or exudates. NECK: No masses, no JVD. CHEST: No chest wall deformity. LUNGS: Equal air entry with no crackles, wheeze, rhonchi or dullness. On room air. No conversational dyspnea or accessory muscle use.. CVS: S1 and S2 normal with no audible murmur, irregular rhythm. No extra heart sounds ABDOMEN: No hepatosplenomegaly, active bowel sounds, no guarding or rigidity. SPINE: No scoliosis or deformity SKIN: No rashes CENTRAL NERVOUS SYSTEM: No focal deficits, tone is normal in all 4 extremities. EXTREMITIES: There is no peripheral edema, clubbing, or cyanosis. Peripheral pulses are intact. - Labs CBC & Chem 7: 01/04/25 05:58 01/04/25 05:58 Labs: Abnormal Lab Results - Last 24 Hours (Table) 01/03/25 01/03/25 01/04/25 Range/Units 16:06 20:23 05:58 WBC 20.5 H (3.8-10.6) k/uL RBC 2.78 L (4.30-5.90) m/uL Hgb 8.3 L (13.0-17.5) gm/dL Hct 26.9 L (39.0-53.0) % MCHC 30.9 L (31.0-37.0) g/dL RDW 15.9 H (11.5-15.5) % Neutrophils # 17.4 H (1.3-7.7) k/uL Monocytes # 1.2 H (0-1.0) k/uL Sodium (137-145) mmol/L Chloride (98-107) mmol/L Glucose (74-99) mg/dL POC Glucose (mg/dL) 147 H 173 H (70-110) mg/dL 01/04/25 01/04/25 01/04/25 Range/Units 05:58 06:11 11:42 WBC (3.8-10.6) k/uL RBC (4.30-5.90) m/uL Hgb (13.0-17.5) gm/dL Hct (39.0-53.0) % MCHC (31.0-37.0) g/dL RDW (11.5-15.5) % Neutrophils # (1.3-7.7) k/uL Monocytes # (0-1.0) k/uL Sodium 131 L (137-145) mmol/L Chloride 94 L (98-107) mmol/L Glucose 117 H (74-99) mg/dL POC Glucose (mg/dL) 136 H 149 H (70-110) mg/dL Assessment and Plan Plan: Shortness of breath, currently inactive and stable. Echocardiogram showed a preserved LV function and small to moderate size pericardial effusion that is essentially chronic with evidence of thickening of the pericardium and fibrous/aggressive material on the surface of the anterior RV wall. No signs of any tamponade. Noted the patient's shortness of breath is a multi factorial. Currently, no issues with oxygenation with a pulse ox of 96% on room air oxygen. Small bilateral pleural effusions Right renal mass, potentially consistent with hypernephroma versus renal cell carcinoma Acute leukocytosis. Normocytic, normochromic anemia. Hemoglobin is stable. EGD showed some antral gastritis. Otherwise no other acute abnormalities. Awaiting colonoscopy Atrial fibrillation with controlled ventricular response, controlled rate Permanent pacemaker. History of hypertension. Diabetes mellitus type 2. Chronic diverticulosis Plan: The patient's respiratory status is stable and the patient is currently on room air oxygen. EGD was completed and patient is going to undergo a colonoscopy today Small bilateral pleural effusion Small to moderate-sized pleural effusion Atrial fibrillation is paroxysmal and the current rate is controlled Anticoagulation is currently on hold Interrogate the pacemaker Cardiology on the case Urology on the case and recommendations are radical nephrectomy at a later stage
[2025-01-04 20:28] LABS: Glucose,Whole Blood 271 mg/dL (70-110)
[2025-01-05 06:23] LABS: Glucose,Whole Blood 153 mg/dL (70-110)
[2025-01-05 08:01] LABS: Anisocytosis Slight; Basophils # (A) 0.1 k/uL (0-0.2); Basophils % (A) 0 %; Eosinophils # (A) 0.4 k/uL (0-0.7); Eosinophils % (A) 2 %; HCT 27.9 % (39.0-53.0); HGB 8.5 gm/dL (13.0-17.5); Hypochromasia Slight; Lymphocytes # (A) 1.6 k/uL (1.0-4.8); Lymphocytes % (A) 8 %; MCHC 30.6 g/dL (31.0-37.0); MCV 95.1 fL (80.0-100.0); Macrocytosis Slight; Mean Platelet Volume 7.9; Monocytes # (A) 0.8 k/uL (0-1.0); Monocytes % (A) 4 %; Neutrophils # (A) 17.4 k/uL (1.3-7.7); Neutrophils % (A) 86 %; Platelet Count 419 k/uL (150-450); RBC 2.93 m/uL (4.30-5.90); RDW 16.6 % (11.5-15.5); WBC 20.2 k/uL (3.8-10.6)
[2025-01-05 08:20] LABS: African American GFR (CKD) 58 (>60 ml/min/1.73 sqM); Anion Gap 8 mmol/L; Blood Urea Nitrogen 16 mg/dL (9-20); Calcium 8.4 mg/dL (8.4-10.2); Carbon Dioxide 28 mmol/L (22-30); Chloride 98 mmol/L (98-107); Glucose 128 mg/dL (74-99); Non-African American GFR(CKD) 50 (>60 ml/min/1.73 sqM); Potassium 3.9 mmol/L (3.5-5.1); Sodium 134 mmol/L (137-145)
[2025-01-05 11:45] LABS: Glucose,Whole Blood 264 mg/dL (70-110)
--- NOTE | 2025-01-05 11:55 | CDI ---
Documentation Clarification Form Date: 01/05/2025 11:19:41 AM From: Marcela Arroyo RN CCDS Phone: [phone] Admit Date: 12/27/2024 07:51:00 PM Patient Name: Cassandra Campos Visit Number: [id number] Discharge Date: ATTENTION: The Clinical Documentation Specialists (CDI) and [facility] Coding Staff appreciate your assistance in clarifying documentation. Please respond to the clarification below the line at the bottom and electronically sign. The CDI & [facility] Coding staff will review the response and follow-up if needed. Please note: Queries are made part of the Legal Health Record. If you have any questions, please contact the author of this message via ITS. Doctor: Mackenzie Muñoz Sepsis with pneumonia is documented 12/28 Cardiology consult through 01/04 cardiology notes which may lack sufficient clinical evidence/support in the medical record. Additional clarification is requested. History/Risk Factors: 84 year old male presents to the ED with exertional shortness of breath, fatigue and unsteady over the last month. Medical history: Afib, CAD and HTN. HP, 12/28 Clinical Indicators: VSS 12/27: B/P 160/71; HR 88; Temp 97.8F Oral, RR 16, SpO2 98% ra Wbc 12/27: 21.1; 12/28 19.9; 12/30 19.4; 01/01 20.8 CXR 12/27 Cardiomegaly with small right and trace left pleural effusions. CT Chest, 12/31: Small pericardial effusion and bilateral pleural effusions Medicine note 12/31: SIRS: Unknown etiology. Procal negative. Rocephin and Azithromycin discontinued. Blood culture neg so far. UA small LE with 39 WBCs but asymptomatic. CXR with no concerns of pneumonia. Telemetry monitoring. .Hematology on board. Pulmonary note, 01/01: We do not believe the patient has pneumonia. He is on room air. Urology note 01/02: Right renal mass.Recommendations.The patient will undergo colonoscopy.Once that is clear then the patient will need a right radical nephrectomy.The inflammatory status of this with an elevated white count is still indeterminate.It is my belief he would be better served in a tertiary Medical Center with this unusual situation. Treatment: Daily Wbc, Vital signs per protocol Antibiotics: 12/27 Azithromycin IVPB X 1; 12/27 Ceftriaxone IVPB x 1; 12/28 12/29 Zithromax PO HS x 2 doses; 12/28 12/29 Ceftriaxone IVPB HS Fluids: 12/27 12/28 0.9NS IV @ 130cc/hr Please clarify if Sepsis is a valid diagnosis? [ x ] No, Sepsis with pneumonia is ruled out [ ] Yes, Sepsis with pneumonia is present as evidence by (additional clinical support): [ ] Other (please specify diagnosis) [ ] Unable to determine SIRS Criteria: 2 or more of the following may indicate SIRS Temperature < 96.8F (36C) or > 101.0F (38.3C) Heart Rate > 90 bpm Respiratory Rate > 20 breaths/min or PaCO2 < 32 mmHg White Blood Cell Count > 12,000 or < 4,000 cells/mm3 or > 10% bands (Template Last Revised: April 2024) MTDD
[2025-01-05 16:34] LABS: Glucose,Whole Blood 119 mg/dL (70-110)
--- NOTE | 2025-01-05 17:26 | P.PN ---
Subjective Progress Note Date: 01/05/25 Hospital Course: 84 year old M with PMH AFib, pacemaker, DM, CAD, HTN presents to the ED for sh ortness of breath. Supplemental information obtained from family at bedside as patient is a poor historian. Family reports exertional shortness of breath, fatigue, unsteady gait that has been progressively getting worse over the past month. Family also reports melanotic stools and decreased appetite leading to 30 pound weight loss since May. Patient denies cough, fever or chills, nausea or vomiting, lower extremity edema, changes in urination. In the ED he underwent extensive evaluation. BP 160/71, HR 88, T 97.8F, RR 16, 98% on RA. CBC, Coag panel, CMP significant for WBC 21.1, RBC 2.77, Hg 8.4, Hct 26, Na 135, BUN 26, glu 236, alb 3.1. Lactic acid 3.2. BNP 1790. Trop 0.014, 0.02, 0.02. Procal 0.14. TSH 1.85. UA small LE with 39 WBCs. COVID, RSV, Flu neg. CXR cardiomegaly with small R and trace L pleural effusion. EKG A-Fib with Q waves in the inferior leads. Patient is admitted for further workup and management. Initially started on Rocephin/Azithromycin for PNA, Pulmonary consulted, pro-linda negative, antibiotics discontinued. He was started on Lasix IV and admitted for Cardiology evaluation. Echo showed EF 55-60% with diastolic dysfunction and moderate pericardial effusion, diuretics transitioned to Torsemide. Iron studies showed Fe 13, % sat 6.1, Ferritin 322 for which he was started on IV iron. Stool occult positive, Surgery consulted. Heme-Onc consulted for persistent le ukocytosis, CT chest/abd/pel ordered which showed right renal mass extending towards the duodenum, Urology is consulted as well. Plan for EGD and colonoscopy on 01/02, continue to hold Eliquis. EGD done and showed nonspecific patchy antral erythema, biopsies obtained for Helicobacter pylori, no erosions or ulcers, no hiatal hernia, no Rocha's esophagitis. Colonoscopy was not performed due to unfinished prep. Per urology, once patient underwent colonoscopy that was performed on 01/04 and showed no source of bleeding, did not reveal diverticulosis. Discussed with urology discharge planning, urology recommends discharge home and follow-up with them after discharge, urology to facilitate admission for surgery at another institution Per cardiology, Continue pravastatin, Toprol XL 25 mg daily, torsemide 10 mg daily, plan to continue torsemide at the time of discharge for about 1 month. he was also cleared by cardiology for surgical intervention with moderate risk of complication. Resumed Eliquis 5 twice daily Discharged home on 01/06. Walking pulse ox was 99% Subjective: Patient was seen and examined. Patient complains only of fatigue, denied chest pain, shortness of breath, abdominal pain Pertinent positives and negatives as discussed above, a complete review of systems was performed and all other systems are negative. Vitals Signs Reviewed. General: [nontoxic], [no distress], [appears at stated age] Derm: [warm], [dry] Head: [atraumatic], [normocephalic], [symmetric] Eyes: [EOMI], [no lid lag], [anicteric sclera] Mouth: [no lip lesion], [mucus membranes moist] Cardiovascular: [S1S2 reg], [no murmur] Lungs: [CTA bilateral], [no rhonchi, no rales] , [no accessory muscle use] Abdominal: [soft], [ nontender to palpation], [no guarding], [no appreciable organomegaly] Ext: [no gross muscle atrophy], [no edema], [no contractures] Neuro: [ CN II-XI grossly intact], [no focal neuro deficits] Psych: [Alert], [oriented], [appropriate affect] Data Reviewed Today: Pertinent Labs: Leukocytosis stable 20.2, hemoglobin stable at 5.8, platelet count normal, sodium 134, normal potassium, creatinine 1.28, stable, blood glucose is controlled Assessment and Plan: dyspnea secondary to acute diastolic CHF exacerbation, resolved Bilateral pleural effusion Pericardial effusion -Continue pravastatin, Toprol XL 25 mg daily, torsemide 10 mg daily, plan to continue torsemide at the time of discharge for about 1 month. SIRS ruled out: Monitor off antibiotics, heme-onc following, monitor CBC, continue telemetry. Blood cultures negative to date Acute on chronic anemia Iron deficiency Persistent le likely secondary to upper GI bleed, occult blood positiveukocytosis Right renal mass, newly diagnosed -Eliquis 5 twice daily on IV iron -Heme-onc, surgery consulted, leukocytosis likely from kidney mass -Cleared for urological surgery by cardiology -Per urology, can be discharged home with urology follow-up Type II DM with hyperglycemia: Accu-Cheks, SSI, hypoglycemic precautions, paroxysmal A-fib: Eliquis 5 mg twice daily, metoprolol 25 daily Hypertension: Metoprolol as above DVT ppx: Eliquis, Discharge plan, home 01/06 Objective - Vital Signs Vital signs: Vital Signs Temp 97.8 F 01/05/25 11:38 Pulse 80 01/05/25 15:13 Resp 18 01/05/25 15:13 BP 95/53 01/05/25 15:13 Pulse Ox 97 01/05/25 15:13 FiO2 Intake & Output 01/04/25 01/05/25 01/05/25 18:59 06:59 18:59 Intake Total 200 30 Output Total 300 100 Balance 200 -300 -70 Weight 74.1 kg 68.4 kg Intake: IV 200 30 Invasive Line 2 30 Output: Urine 300 100 Other: Voiding Method Urinal - Labs CBC & Chem 7: 01/05/25 07:50 01/05/25 07:50 Labs: Abnormal Lab Results - Last 24 Hours (Table) 01/04/25 01/05/25 01/05/25 Range/Units 20:15 06:17 07:50 WBC 20.2 H (3.8-10.6) k/uL RBC 2.93 L (4.30-5.90) m/uL Hgb 8.5 L (13.0-17.5) gm/dL Hct 27.9 L (39.0-53.0) % MCHC 30.6 L (31.0-37.0) g/dL RDW 16.6 H (11.5-15.5) % Neutrophils # 17.4 H (1.3-7.7) k/uL Sodium (137-145) mmol/L Creatinine (0.66-1.25) mg/dL Glucose (74-99) mg/dL POC Glucose (mg/dL) 271 H 153 H (70-110) mg/dL 01/05/25 01/05/25 01/05/25 Range/Units 07:50 11:43 16:28 WBC (3.8-10.6) k/uL RBC (4.30-5.90) m/uL Hgb (13.0-17.5) gm/dL Hct (39.0-53.0) % MCHC (31.0-37.0) g/dL RDW (11.5-15.5) % Neutrophils # (1.3-7.7) k/uL Sodium 134 L (137-145) mmol/L Creatinine 1.28 H (0.66-1.25) mg/dL Glucose 128 H (74-99) mg/dL POC Glucose (mg/dL) 264 H 119 H (70-110) mg/dL
--- NOTE | 2025-01-05 18:01 | P.PN ---
Subjective Progress Note Date: 01/05/25 Principal diagnosis: Right renal mass The patient underwent colonoscopy yesterday which was unremarkable. He reports vague right flank discomfort. He denies hematuria. His primary complaint is shortness of breath. Objective - Vital Signs Vital signs: Vital Signs Temp 98.1 F 01/05/25 04:00 Pulse 63 01/05/25 04:00 Resp 18 01/05/25 04:00 BP 124/78 01/05/25 04:00 Pulse Ox 98 01/05/25 04:00 FiO2 Intake & Output 01/04/25 01/05/25 01/05/25 18:59 06:59 18:59 Intake Total 200 Output Total 300 Balance 200 -300 Weight 74.1 kg 68.4 kg Intake: IV 200 Output: Urine 300 - Constitutional General appearance: Present: average body habitus, cooperative, no acute distress - Psychiatric Psychiatric: Present: A&O x's 3 - Labs CBC & Chem 7: 01/05/25 07:50 01/05/25 07:50 Labs: Abnormal Lab Results - Last 24 Hours (Table) 01/04/25 01/04/25 01/04/25 Range/Units 05:58 11:42 17:00 Sodium 131 L (137-145) mmol/L Chloride 94 L (98-107) mmol/L Glucose 117 H (74-99) mg/dL POC Glucose (mg/dL) 149 H 196 H (70-110) mg/dL 01/04/25 01/05/25 Range/Units 20:15 06:17 Sodium (137-145) mmol/L Chloride (98-107) mmol/L Glucose (74-99) mg/dL POC Glucose (mg/dL) 271 H 153 H (70-110) mg/dL Assessment and Plan (1) Neoplasm of uncertain behavior of right kidney Current Visit: Yes Status: Acute Code(s): D41.01 - NEOPLASM OF UNCERTAIN BEHAVIOR OF RIGHT KIDNEY SNOMED Code(s): 637010230531868 Plan: The patient has been advised to undergo a right radical nephrectomy. After reviewing the CT scan, it is felt that this should ideally be performed at a tertiary care center. The patient's primary complaint at this time is dyspnea, and he would require surgical clearance prior to being referred to a tertiary care center for further management.
--- NOTE | 2025-01-05 18:05 | P.PN ---
Subjective HISTORY OF PRESENT ILLNESS: Patient is a 84-year-old male with past medical history of atrial fibrillation, PPM, type 2 diabetes. He presented to the hospital because of increased worsening shortness of breath along with minimal exertion which was progressively getting worse. Cardiology was consulted because of mild elevated NT proBNP and prior history of atrial fibrillation. Diagostics: Admission Labs: Leukocytosis WBC 19.9, anemia hemoglobin 7.7, elevated lactate of 2.2, troponin negative at 0.02, creatinine 1.18, glucose 236, NT-proBNP 1790 Admission EKG: Atrial paced V sensed rhythm Cardio relavant imaging: Chest x-ray shows possible right lower lobe infiltrates consistent with pneumonia. 12/29 Patient seen and examined. She states that her shortness of breath is better. No lower extremity edema. Blood pressure 90/53, heart rate 70, pulse ox 99% on room air. Telemetry sinus rhythm/paced rhythm. Repeat blood work reveals hemoglobin 8.4, BUN 21 creatinine 1.19. Chest x-ray reveals persistent cardiomegaly with small bilateral pleural effusions. Correlate for CHF exacerbation or fluid overload state. Associated bibasilar opacities favor compressive atelectasis. A1c 6.6. TSH 1.85. Triglycerides 88, cholesterol 121 , LDL 73. Procalcitonin 0.14. Echocardiogram report is pending. 12/30 Patient is seen and examined. He is doing well today. Echocardiogram reveals EF of 55 to 60%, moderate pericardial effusion which appears to be chronic with thickened pericardium and fibrinous exudative material on the surface of the anterior RV wall consistent with chronic effusion. All information including the results of testing have been reviewed with the patient, his family at the bedside as well as his grandson over the phone. Patient does not require For the pericardial effusion. Patient's blood pressure is on the lower side but seems to have no symptoms from that. Patient states he is eating okay. He denies chest pain. Anemia seems to be chronic. Blood pressure 98/55, heart rate 80, pulse ox 97% on room air. Repeat blood work reveals hemoglobin 8.6, WBC 19.4, BUN 24 creatinine 1.24, sodium 131, potassium 4.5. 12/31 Patient seen and examined. Today, patient underwent CT chest/abd/pelvis ordered by oncology following a positive stool for occult blood. This was suspicious for renal mass. Results discussed with the patient and family but oncology will provide more detail. We recommended with the family that we perform CTA of the chest to rule out PE. From a cardiac perspective, he is stable. Patient's family states that he has had weight loss, loss of appetite, generalized weakness. Blood pressure 104/58, heart rate 64, pulse ox 99% on room air. General surgery is on consult for possible endoscopy. 01/01 Patient seen and examined. Family states that plan is for endoscopy. Patient has been scheduled for EGD and colonoscopy tomorrow and Eliquis has been placed on hold. Telemetry is atrial fibrillation with controlled rate. Regarding the renal mass, patient has been seen by oncology and recommended right radical nephrectomy with plan for referral to [facility]. Blood pressure 112/70, heart rate 86, pulse ox 95% on room air. Repeat blood work reveals WBC 20.8, hemoglobin 8.6, BUN 25 creatinine 1.38, sodium 132, potassium 4.1. 01/02/2024 Patient seen in bedside this a.m. No new cardiovascular events Patient's family is concerned that pacemaker might be malfunctioning. However it appears to be functioning appropriately and I did provide them reassurance. They would like to get his pacemaker interrogated. 01/03/2021 BP 114/63, heart rate 63 bpm WBC 21, hemoglobin 8.6, BUN 20, creatinine 1.3 01/04/2025 Patient examined this morning at the bedside. Patient's family is present. Patient currently denies chest pain or pressure. He denies shortness of breath. Hemoglobin is stable today 8.3. His Eliquis remains on hold. He underwent EGD on 01/02/2025 revealing nonulcerative dyspepsia. He is scheduled to undergo colonoscopy today with general surgery. 01/05/2025 Patient examined this afternoon at the bedside. Family is present. Patient is status post colonoscopy yesterday with general surgery revealing diverticulosis and small internal hemorrhoids. Patient currently denies chest pain or pressure. He denies shortness of breath. Telemetry reveals paced rhythm/atrial fibrillation with controlled ventricular rate. Pacemaker was interrogated yesterday and is functioning appropriately. Patient does have evidence of atrial fibrillation on his pacemaker interrogation. PHYSICAL EXAM: VITAL SIGNS: Reviewed. GENERAL: Well-developed in no acute distress. NECK: Supple. No JVD or thyromegaly LUNGS: Respirations even and unlabored. Lungs essentially clear to auscultation bilaterally. HEART: Regular rate and rhythm. S1 and S2 heard. EXTREMITIES: Normal range of motion. No clubbing or cyanosis. Peripheral pulses intact. No lower extremity edema ASSESSMENT: Acute hypoxic respiratory failure Sepsis with possible pneumonia History of paroxysmal atrial fibrillation, currently rate controlled History of PPM Lactic acidosis Elevated NT proBNP however less likely congestive heart failure from physical examination. Pericardial effusion Persistent leukocytosis Renal mass Anemia, status post EGD and colonoscopy without evidence of acute GI bleeding PLAN: Continue current cardiac medications Case discussed with general surgery. Okay to resume Eliquis 5 mg twice a day. Continue to monitor hemoglobin Pacemaker interrogated and functioning appropriately with evidence of atrial fibrillation Decrease Cardura to 4 mg twice a day Increase metoprolol succinate to twice a day dosing Continue telemetry monitoring Patient is currently stable from a cardiac perspective Further recommendations pending patient course Patient to follow-up postdischarge with his primary loan broker, Dr. Colvin Nurse practitioner note has been reviewed by physician. Signing provider agrees with the documented findings, assessment, and plan of care documented by [employer] as a scribe. Objective - Vital Signs Vital signs: Vital Signs Temp 97.8 F 01/05/25 11:38 Pulse 80 01/05/25 15:13 Resp 18 01/05/25 15:13 BP 95/53 01/05/25 15:13 Pulse Ox 97 01/05/25 15:13 FiO2 Intake & Output 01/04/25 01/05/25 01/05/25 18:59 06:59 18:59 Intake Total 200 30 Output Total 300 100 Balance 200 -300 -70 Weight 74.1 kg 68.4 kg Intake: IV 200 30 Invasive Line 2 30 Output: Urine 300 100 Other: Voiding Method Urinal - Labs CBC & Chem 7: 01/05/25 07:50 01/05/25 07:50 Labs: Abnormal Lab Results - Last 24 Hours (Table) 01/04/25 01/05/25 01/05/25 Range/Units 20:15 06:17 07:50 WBC 20.2 H (3.8-10.6) k/uL RBC 2.93 L (4.30-5.90) m/uL Hgb 8.5 L (13.0-17.5) gm/dL Hct 27.9 L (39.0-53.0) % MCHC 30.6 L (31.0-37.0) g/dL RDW 16.6 H (11.5-15.5) % Neutrophils # 17.4 H (1.3-7.7) k/uL Sodium (137-145) mmol/L Creatinine (0.66-1.25) mg/dL Glucose (74-99) mg/dL POC Glucose (mg/dL) 271 H 153 H (70-110) mg/dL 01/05/25 01/05/25 01/05/25 Range/Units 07:50 11:43 16:28 WBC (3.8-10.6) k/uL RBC (4.30-5.90) m/uL Hgb (13.0-17.5) gm/dL Hct (39.0-53.0) % MCHC (31.0-37.0) g/dL RDW (11.5-15.5) % Neutrophils # (1.3-7.7) k/uL Sodium 134 L (137-145) mmol/L Creatinine 1.28 H (0.66-1.25) mg/dL Glucose 128 H (74-99) mg/dL POC Glucose (mg/dL) 264 H 119 H (70-110) mg/dL
--- NOTE | 2025-01-05 18:56 | P.PN ---
Subjective Progress Note Date: 01/05/25 On 01/04/2025, the patient is being seen for a follow-up. The patient denies having any significant chest pain or shortness of breath. The patient is scheduled to undergo a colonoscopy today as part of a work of of his anemia. Hemoglobin today is at 8.3. Patient underwent an EGD on 01/02/2025 revealing none ulcerative dysplasia and there was minimal nonspecific patchy antral erythema. On today's evaluation, the patient's white cell count of 20.5 with a heme of 8.3 and a platelet count of 403. BUN is 17 with a creatinine of 1.2 and a sodium levels at 131 with a potassium level of 3.8. The patient continues to be on IV iron. IV fluids are currently at KVO. Remains on Toprol 25 mg p.o. daily. Remains on IV Protonix. Oxygenation is stable and the patient's pulse ox is 96% on room air oxygen. CAT scan of the chest abdomen and pelvis that was done on 12/31/2024 showed a right renal mass which extended toward the duodenum possibly invading into and partially obstructing the duodenum. This is compatible with renal cell carcinoma. The patient also has enlargement of the prostate and diverticulosis and small pericardial effusion and bilateral pleural effusions. On 01/05/2025, the patient is being seen for a follow-up. The patient is post colonoscopy that showed diverticulosis and small internal hemorrhoids. No evidence of any acute bleeding. The patient is calm and comfortable and the patient is currently on room air oxygen with a pulse ox of 97%. No issues with pain. White cell count is at 20.2 with a hemoglobin 8.7 and platelet count of 419. Patient is 60 with a creatinine of 1.28 and sodium levels at 134 and a potassium level is at 3.9. The patient remains on anticoagulation with Eliquis and anticoagulation has been resumed. Home medications have been also resumed. The patient has no nausea. No emesis. He remains and A-fib/paced rhythm on the monitor. Rate is controlled. No other significant issues otherwise. Objective - Vital Signs Vital signs: Vital Signs Temp 97.8 F 01/05/25 11:38 Pulse 107 H 01/05/25 11:38 Resp 15 01/05/25 11:38 BP 102/66 01/05/25 11:38 Pulse Ox 99 01/05/25 11:38 FiO2 Intake & Output 01/04/25 01/05/25 01/05/25 18:59 06:59 18:59 Intake Total 200 30 Output Total 300 100 Balance 200 -300 -70 Weight 74.1 kg 68.4 kg Intake: IV 200 30 Invasive Line 2 30 Output: Urine 300 100 Other: Voiding Method Urinal - Exam GENERAL EXAM: Alert, 84-year-old male, comfortable in no apparent distress while at rest. HEAD: Normocephalic and atraumatic EYES: Normal reaction of pupils, equal size. NOSE: Clear with pink turbinates. THROAT: No erythema or exudates. NECK: No masses, no JVD. CHEST: No chest wall deformity. LUNGS: Equal air entry with no crackles, wheeze, rhonchi or dullness. On room air. No conversational dyspnea or accessory muscle use.. CVS: S1 and S2 normal with no audible murmur, irregular rhythm. No extra heart sounds ABDOMEN: No hepatosplenomegaly, active bowel sounds, no guarding or rigidity. SPINE: No scoliosis or deformity SKIN: No rashes CENTRAL NERVOUS SYSTEM: No focal deficits, tone is normal in all 4 extremities. EXTREMITIES: There is no peripheral edema, clubbing, or cyanosis. Peripheral pulses are intact. - Labs CBC & Chem 7: 01/05/25 07:50 01/05/25 07:50 Labs: Abnormal Lab Results - Last 24 Hours (Table) 01/04/25 01/04/25 01/05/25 Range/Units 17:00 20:15 06:17 WBC (3.8-10.6) k/uL RBC (4.30-5.90) m/uL Hgb (13.0-17.5) gm/dL Hct (39.0-53.0) % MCHC (31.0-37.0) g/dL RDW (11.5-15.5) % Neutrophils # (1.3-7.7) k/uL Sodium (137-145) mmol/L Creatinine (0.66-1.25) mg/dL Glucose (74-99) mg/dL POC Glucose (mg/dL) 196 H 271 H 153 H (70-110) mg/dL 01/05/25 01/05/25 01/05/25 Range/Units 07:50 07:50 11:43 WBC 20.2 H (3.8-10.6) k/uL RBC 2.93 L (4.30-5.90) m/uL Hgb 8.5 L (13.0-17.5) gm/dL Hct 27.9 L (39.0-53.0) % MCHC 30.6 L (31.0-37.0) g/dL RDW 16.6 H (11.5-15.5) % Neutrophils # 17.4 H (1.3-7.7) k/uL Sodium 134 L (137-145) mmol/L Creatinine 1.28 H (0.66-1.25) mg/dL Glucose 128 H (74-99) mg/dL POC Glucose (mg/dL) 264 H (70-110) mg/dL Assessment and Plan Plan: Shortness of breath, currently inactive and stable. Echocardiogram showed a preserved LV function and small to moderate size pericardial effusion that is essentially chronic with evidence of thickening of the pericardium and fibrous/aggressive material on the surface of the anterior RV wall. No signs of any tamponade. Noted the patient's shortness of breath is a multi factorial. Currently, no issues with oxygenation with a pulse ox of 96% on room air oxygen. Small bilateral pleural effusions Right renal mass, potentially consistent with hypernephroma versus renal cell carcinoma Acute leukocytosis. Normocytic, normochromic anemia. Hemoglobin is stable. EGD showed some antral gastritis. Otherwise no other acute abnormalities. Colonoscopy revealing diverticulosis and internal hemorrhoids Atrial fibrillation with controlled ventricular response, controlled rate Permanent pacemaker. History of hypertension. Diabetes mellitus type 2. Chronic diverticulosis Plan: The patient's respiratory status is stable and the patient is currently on room air oxygen. EGD w and colonoscopy completed Small bilateral pleural effusion Small to moderate-sized pleural effusion Atrial fibrillation is paroxysmal and the current rate is controlled, back on anticoagulation Cardiology on the case Urology on the case and recommendations are radical nephrectomy at a later stage Will sign off the case
[2025-01-05 20:07] LABS: Glucose,Whole Blood 256 mg/dL (70-110)
[2025-01-05] MEDS: APIXABAN 5 MG TAB PO SCH (20:14)
[2025-01-05] MEDS: DOXAZOSIN 4 MG TAB PO SCH (20:14)
[2025-01-05] MEDS: METOPROLOL SUCCINATE (ER) 25 MG TAB.ER.24H PO SCH (20:14)
[2025-01-05] MEDS ORDERED: APIXABAN 2.5 MG TABLET PO SCH (21:00)
--- NOTE | 2025-01-06 04:51 | P.PN ---
Subjective Progress Note Date: 01/05/25 Patient seen and evaluated at bedside. Doing well, no signs of bleeding. Denies fevers, chills, shortness of breath or chest pain. Objective - Vital Signs Vital signs: Vital Signs Temp 98.0 F 01/06/25 03:34 Pulse 85 01/06/25 03:34 Resp 18 01/06/25 03:34 BP 122/66 01/06/25 03:34 Pulse Ox 97 01/06/25 03:34 FiO2 Intake & Output 01/05/25 01/05/25 01/06/25 06:59 18:59 06:59 Intake Total 30 20 Output Total 300 100 450 Balance -300 -70 -430 Weight 68.4 kg Intake: IV 30 20 Invasive Line 2 30 20 Output: Urine 300 100 450 Other: Voiding Method Urinal Urinal - Exam gen: nad cv: rrr pul: non labored breathing abd: soft, non distended, non tender to palpation,no guarding or rebound tenderness - Labs CBC & Chem 7: 01/05/25 07:50 01/05/25 07:50 Labs: Abnormal Lab Results - Last 24 Hours (Table) 01/05/25 01/05/25 01/05/25 Range/Units 06:17 07:50 07:50 WBC 20.2 H (3.8-10.6) k/uL RBC 2.93 L (4.30-5.90) m/uL Hgb 8.5 L (13.0-17.5) gm/dL Hct 27.9 L (39.0-53.0) % MCHC 30.6 L (31.0-37.0) g/dL RDW 16.6 H (11.5-15.5) % Neutrophils # 17.4 H (1.3-7.7) k/uL Sodium 134 L (137-145) mmol/L Creatinine 1.28 H (0.66-1.25) mg/dL Glucose 128 H (74-99) mg/dL POC Glucose (mg/dL) 153 H (70-110) mg/dL 01/05/25 01/05/25 01/05/25 Range/Units 11:43 16:28 20:06 WBC (3.8-10.6) k/uL RBC (4.30-5.90) m/uL Hgb (13.0-17.5) gm/dL Hct (39.0-53.0) % MCHC (31.0-37.0) g/dL RDW (11.5-15.5) % Neutrophils # (1.3-7.7) k/uL Sodium (137-145) mmol/L Creatinine (0.66-1.25) mg/dL Glucose (74-99) mg/dL POC Glucose (mg/dL) 264 H 119 H 256 H (70-110) mg/dL Assessment and Plan Assessment: ASSESSMENT: 1. Anemia with stool positive for occult blood and melanotic stools 2. Right renal mass which extends towards the duodenum and possibly invades into and partially obstructs the duodenum noted on abdominal CT scan 3. Unexplained weight loss of 30 pounds 4. Acute CHF exacerbation has been transitioned to oral diuretics -egd/colonscopy negative for acute bleeding or masses that would explain anemia or weight loss -defer further management to primary team and urology -surgery will sign off please call if needed Peterson Mistry DO Surgery [phone] cell Time with Patient: Less than 30
[2025-01-06 05:57] LABS: Glucose,Whole Blood 140 mg/dL (70-110)
[2025-01-06 08:23] LABS: Anisocytosis Slight; Basophils # (A) 0.2 k/uL (0-0.2); Basophils % (A) 1 %; Eosinophils # (A) 0.5 k/uL (0-0.7); Eosinophils % (A) 3 %; HCT 25.4 % (39.0-53.0); Hypochromasia Moderate; Lymphocytes # (A) 1.9 k/uL (1.0-4.8); Lymphocytes % (A) 10 %; MCH 30.4 pg (25.0-35.0); MCHC 31.5 g/dL (31.0-37.0); MCV 96.6 fL (80.0-100.0); Macrocytosis Slight; Mean Platelet Volume 7.5; Monocytes # (A) 0.9 k/uL (0-1.0); Monocytes % (A) 5 %; Neutrophils # (A) 15.4 k/uL (1.3-7.7); Neutrophils % (A) 80 %; Platelet Count 354 k/uL (150-450); RBC 2.63 m/uL (4.30-5.90); RDW 16.1 % (11.5-15.5); WBC 19.2 k/uL (3.8-10.6)
[2025-01-06 08:42] LABS: African American GFR (CKD) 48 (>60 ml/min/1.73 sqM); Anion Gap 4 mmol/L; Blood Urea Nitrogen 14 mg/dL (9-20); Calcium 8.3 mg/dL (8.4-10.2); Carbon Dioxide 32 mmol/L (22-30); Chloride 97 mmol/L (98-107); Glucose 130 mg/dL (74-99); Non-African American GFR(CKD) 41 (>60 ml/min/1.73 sqM); Potassium 4.1 mmol/L (3.5-5.1); Sodium 133 mmol/L (137-145)
[2025-01-06 09:19] VITALS: BP 101/58; PULSE 78; RESP 16; TEMP 97.9
[2025-01-06 12:17] VITALS: BMI 21.6
--- NOTE | 2025-01-06 15:35 | P.DS ---
Providers Date of admission: 12/27/24 19:51 Attending physician: Vu Lord MD Consults: 12/27/24 19:49 Consult Physician Routine Consulting Provider: Cielo Morillo Consult Reason/Comments: pna Do you want consulting provider notified?: Yes Consult Physician Routine Consulting Provider: Kiara Barksdale Consult Reason/Comments: chf Do you want consulting provider notified?: Yes 12/30/24 14:49 Consult Physician Routine Consulting Provider: Ariel Miller Consult Reason/Comments: Leukocytosis Do you want consulting provider notified?: Yes 12/31/24 13:33 Consult Physician Routine Consulting Provider: Ignacio Nazario Consult Reason/Comments: right renal mass Do you want consulting provider notified?: Yes Primary care physician: Morgan Pierre Hospital Course: Discharge Diagnosis: dyspnea secondary to acute diastolic CHF exacerbation, resolved Bilateral pleural effusion Pericardial effusion SIRS ruled out Acute on chronic anemia Iron deficiency Type II DM with hyperglycemia: diverticulosis paroxysmal afib on eliquis HTN Right renal mass, newly diagnosed Hospital Course: 84 year old M with PMH AFib, pacemaker, DM, CAD, HTN presents to the ED for shortness of breath. Supplemental information obtained from family at bedside as patient is a poor historian. Family reports exertional shortness of breath, fatigue, unsteady gait that has been progressively getting worse over the past month. Family also reports melanotic stools and decreased appetite leading to 30 pound weight loss since May. Patient denies cough, fever or chills, nausea or vomiting, lower extremity edema, changes in urination. In the ED he underwent extensive evaluation. BP 160/71, HR 88, T 97.8F, RR 16, 98% on RA. CBC, Coag panel, CMP significant for WBC 21.1, RBC 2.77, Hg 8.4, Hct 26, Na 135, BUN 26, glu 236, alb 3.1. Lactic acid 3.2. BNP 1790. Trop 0.014, 0.02, 0.02. Procal 0.14. TSH 1.85. UA small LE with 39 WBCs. COVID, RSV, Flu neg. CXR cardiomegaly with small R and trace L pleural effusion. EKG A-Fib with Q waves in the inferior leads. Patient is admitted for further workup and management. Initially started on Rocephin/Azithromycin for PNA, Pulmonary consulted, pro-linda negative, antibiotics discontinued. He was started on Lasix IV and admitted for Cardiology evaluation. Echo showed EF 55-60% with diastolic dysfunction and moderate pericardial effusion, diuretics transitioned to Torsemide. Iron studies showed Fe 13, % sat 6.1, Ferritin 322 for which he was started on IV iron. Stool occult positive, Surgery consulted. Heme-Onc consulted for persistent leukocytosis, CT chest/abd/pel ordered which showed right renal mass extending towards the duodenum, Urology is consulted as well. Plan for EGD and colonoscopy on 01/02, continue to hold Eliquis. EGD done and showed nonspecific patchy antral erythema, biopsies obtained for Helicobacter pylori, no erosions or ulcers, no hiatal hernia, no Rocha's esophagitis. Colonoscopy was not performed due to unfinished prep. Per urology, once patient underwent colonoscopy that was performed on 01/04 and showed no source of bleeding, did not reveal diverticulosis. Discussed with urology discharge planning, urology recommends discharge home and follow-up with them after discharge, urology to facilitate admission for surgery at another institution Per cardiology, Continue pravastatin, Toprol XL 25 mg daily, torsemide 10 mg daily, plan to continue torsemide at the time of discharge for about 1 month. he was also cleared by cardiology for surgical intervention with moderate risk of complication. Resumed Eliquis 5 twice daily Walking pulse ox was 99% Discharge medications: Provided with torsemide 10 mg daily for 30 days, iron 325, Protonix 40 daily, per cardiology recommendations, Toprol-XL 25 twice daily, resumed on Eliquis 5 mg twice daily. Patient to follow-up with PCP, hematology, cardiology, urology. Discharge home with home care on 01/06/2025 Patient seen and examined at bedside Vital signs reviewed and stable. General: [nontoxic], [no distress], [appears at stated age] Derm: [warm], [dry] Head: [atraumatic], [normocephalic], [symmetric] Eyes: [EOMI], [no lid lag], [anicteric sclera] Mouth: [no lip lesion], [mucus membranes moist] Cardiovascular: [S1S2 reg], [no murmur] Lungs: [CTA bilateral], [no rhonchi, no rales] , [no accessory muscle use] Abdominal: [soft], [ nontender to palpation], [no guarding], [no appreciable organomegaly] Ext: [no gross muscle atrophy], [no edema], [no contractures] Neuro: [ CN II-XI grossly intact], [no focal neuro deficits] Psych: [Alert], [oriented], [appropriate affect] A total of 40 minutes of time were spent preparing this complex discharge summary. Patient Condition at Discharge: Fair Plan - Discharge Summary New Discharge Prescriptions: New Torsemide [Demadex] 10 mg PO DAILY #30 tab Ferrous Sulfate [Iron] 325 mg PO DAILY #90 tab Pantoprazole [Protonix] 40 mg PO DAILY #60 tab Metoprolol Succinate (ER) [Toprol XL] 25 mg PO BID #60 tab Continue Pravastatin Sodium [Pravachol] 20 mg PO DAILY glyBURIDE/METFORMIN HCL [Glucovance 5-500 mg] 2 tab PO BID Apixaban [Eliquis] 5 mg PO BID Terazosin HCl 10 mg PO BID Sacubitril/Valsartan [Entresto 24 mg-26 mg Tablet] 24 - 26 each PO BID Discontinued Metoprolol Tartrate [Lopressor] 12.5 mg PO DAILY Discharge Medication List Apixaban [Eliquis] 5 mg PO BID 12/28/24 [History] Pravastatin Sodium [Pravachol] 20 mg PO DAILY 12/28/24 [History] Terazosin HCl 10 mg PO BID 12/28/24 [History] glyBURIDE/METFORMIN HCL [Glucovance 5-500 mg] 2 tab PO BID 12/28/24 [History] Sacubitril/Valsartan [Entresto 24 mg-26 mg Tablet] 24 - 26 each PO BID 12/29/24 [History] Ferrous Sulfate [Iron] 325 mg PO DAILY #90 tab 01/06/25 [Rx] Metoprolol Succinate (ER) [Toprol XL] 25 mg PO BID #60 tab 01/06/25 [Rx] Pantoprazole [Protonix] 40 mg PO DAILY #60 tab 01/06/25 [Rx] Torsemide [Demadex] 10 mg PO DAILY #30 tab 01/06/25 [Rx] Follow up Appointment(s)/Referral(s): Morgan Pierre MD [Primary Care Provider] - 1-2 days Angelika Baldwin NPC [Nurse Practitioner] - 1 Week Vu Colvin MD [REFERRING] - 1 Week [facility] [NON-STAFF] - Livan Cabello MD [STAFF PHYSICIAN] - 1 Week Activity/Diet/Wound Care/Special Instructions: Please, follow-up with your primary care physician, urologist, transmission and protection engineer, hematology oncology team Discharge Disposition: HOME WITH HOME HEALTH SERVICES
--- NOTE | 2025-01-08 12:47 | CDI ---
Documentation Clarification Form Date: 01/08/2025 12:16:54 PM From: Jenn Santamaria Phone: Admit Date: 12/27/2024 07:51:00 PM Patient Name: Cassandra Campos Visit Number: [id number] Discharge Date: 01/06/2025 12:28:00 PM ATTENTION: The Clinical Documentation Specialists (CDI) and [facility] Coding Staff appreciate your assistance in clarifying documentation. Please respond to the clarification below the line at the bottom and electronically sign. The CDI & [facility] Coding staff will review the response and follow-up if needed. Please note: Queries are made part of the Legal Health Record. If you have any questions, please contact the author of this message via ITS. 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 Coding guidelines do not allow coding professionals to code based on pathology results; therefore, clarification is requested. History/risk factors: 84yo M, ADHF, HTN, pericardial effusion, a/canemia, MILY, DMII w hyperglycemia, PAF, diverticulosis, Rtrenal mass Clinical Indicators: NonUlcerativeDyspepsia. Immunostain with appropriate control negative for Helicobacter organisms. 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
--- NOTE | 2025-01-12 09:37 | CDI ---
Documentation Clarification Form Date: 01/12/2025 09:33:30 AM From: Jenn Santamaria Phone: Admit Date: 12/27/2024 07:51:00 PM Patient Name: Cassandra Campos Visit Number: [id number] Discharge Date: 01/06/2025 12:28:00 PM ATTENTION: The Clinical Documentation Specialists (CDI) and [facility] Coding Staff appreciate your assistance in clarifying documentation. Please respond to the clarification below the line at the bottom and electronically sign. The CDI & [facility] Coding staff will review the response and follow-up if needed. Please note: Queries are made part of the Legal Health Record. If you have any questions, please contact the author of this message via ITS. Doctor/Provider: Raghu Back Thank you for acknowledging the previous query, however, it lacked a response. The final diagnosis of the pathology report states mild to moderate chronic and focally activegastritiswith focalerosion. Coding guidelines do not allow coding professionals to code based on pathology results; therefore, clarification is requested. History/risk factors: 84yo M, ADHF,HTN,pericardial effusion, PAF,diverticulosis, a/canemia, MILY, Rtrenal mass, DMIIwhyperglycemia Clinical Indicators:NonUlcerativeDyspepsia. Immunostain with appropriate control negative for Helicobacter organisms. Treatment: Stomach,Biopsy- Antrum Please clarify if you agree with the pathology report diagnosis of mild to moderate chronic and focally activegastritiswith focalerosion: [ ] Yes [ ] No [ ] Other (please specify) [ ] Unable to determine (Template LastRevised: January 2021) MTDD
--- NOTE | 2025-01-13 11:37 | CDI ---
Documentation Clarification Form Date: 01/13/2025 11:31:32 AM From: Jenn Santamaria Phone: Admit Date: 12/27/2024 07:51:00 PM Patient Name: Cassandra Campos Visit Number: [id number] Discharge Date: 01/06/2025 12:28:00 PM ATTENTION: The Clinical Documentation Specialists (CDI) and [facility] Coding Staff appreciate your assistance in clarifying documentation. Please respond to the clarification below the line at the bottom and electronically sign. The CDI & [facility] Coding staff will review the response and follow-up if needed. Please note: Queries are made part of the Legal Health Record. If you have any questions, please contact the author of this message via ITS. Doctor/Provider: Raghu Back Thank you for acknowledging the previous query, however, it lacked a response. The final diagnosis of the pathology report states mild to moderate chronic and focally activegastritiswith focalerosion. Coding guidelines do not allow coding professionals to code based on pathology results; therefore, clarification is requested. History/risk factors: 84yo M, ADHF,HTN,pericardial effusion, PAF,diverticulosis, a/canemia, MILY, RTrenal mass,DMIIwhyperglycemia Clinical Indicators:NonUlcerativeDyspepsia. Immunostain with appropriate control negative for Helicobacter organisms. Treatment: Stomach,Biopsy- Antrum Please clarify if you agree with the pathology report diagnosis of mild to moderate chronic and focally activegastritiswith focalerosion: [ ] Yes [ ] No [ ] Other (please specify) [ ] Unable to determine (Template LastRevised: January 2021) MTDD
--- NOTE | 2025-01-18 09:51 | CDI ---
Documentation Clarification Form Date: 01/18/2025 09:48:57 AM From: Jenn Santamaria Phone: Admit Date: 12/27/2024 07:51:00 PM Patient Name: Cassandra Campos Visit Number: [id number] Discharge Date: 01/06/2025 12:28:00 PM ATTENTION: The Clinical Documentation Specialists (CDI) and [facility] Coding Staff appreciate your assistance in clarifying documentation. Please respond to the clarification below the line at the bottom and electronically sign. The CDI & [facility] Coding staff will review the response and follow-up if needed. Please note: Queries are made part of the Legal Health Record. If you have any questions, please contact the author of this message via ITS. Doctor/Provider: Raghu Back Thank you for acknowledging the previous queries, however, it lacked a response. The final diagnosis of the pathology report states mild to moderate chronic and focally activegastritiswith focalerosion. Coding guidelines do not allow coding professionals to code based on pathology results; therefore, clarification is requested. History/risk factors: 84yo M, ADHF,HTN,pericardial effusion, PAF,diverticulosis, a/canemia, MILY, RTrenal mass,DMIIwhyperglycemia Clinical Indicators:NonUlcerativeDyspepsia. Immunostain with appropriate control negative for Helicobacter organisms. Treatment: Stomach,Biopsy- Antrum Please clarify if you agree with the pathology report diagnosis of mild to moderate chronic and focally activegastritiswith focalerosion: [ ] Yes [ ] No [ ] Other (please specify) [ ] Unable to determine (Template LastRevised: January 2021) MTDD
--- NOTE | 2025-01-19 19:29 | CDI ---
Documentation Clarification Form Date: 01/19/2025 07:26:58 PM From: Jenn Santamaria Phone: Admit Date: 12/27/2024 07:51:00 PM Patient Name: Cassandra Campos Visit Number: [id number] Discharge Date: 01/06/2025 12:28:00 PM ATTENTION: The Clinical Documentation Specialists (CDI) and [facility] Coding Staff appreciate your assistance in clarifying documentation. Please respond to the clarification below the line at the bottom and electronically sign. The CDI & [facility] Coding staff will review the response and follow-up if needed. Please note: Queries are made part of the Legal Health Record. If you have any questions, please contact the author of this message via ITS. Doctor/Provider: Vu Lord Thank you for acknowledging the previous queries, however, it lacked a response. The final diagnosis of the pathology report states mild to moderate chronic and focally activegastritiswith focalerosion. Coding guidelines do not allow coding professionals to code based on pathology results; therefore, clarification is requested. History/risk factors: 84yo M, ADHF,HTN,pericardial effusion, PAF,diverticulosis, a/canemia, MILY, RTrenal mass,DMIIwhyperglycemia Clinical Indicators:NonUlcerativeDyspepsia. Immunostain with appropriate control negative for Helicobacter organisms. Treatment: Stomach,Biopsy- Antrum Please clarify if you agree with the pathology report diagnosis of mild to moderate chronic and focally activegastritiswith focalerosion: [ ] Yes [ ] No [ ] Other (please specify) [ ] Unable to determine (Template LastRevised: January 2021) MTDD
--- NOTE | 2025-01-21 11:40 | CDI ---
Documentation Clarification Form Date: 01/21/2025 11:34:40 AM From: Jenn Santamaria Phone: Admit Date: 12/27/2024 07:51:00 PM Patient Name: Cassandra Campos Visit Number: [id number] Discharge Date: 01/06/2025 12:28:00 PM ATTENTION: The Clinical Documentation Specialists (CDI) and [facility] Coding Staff appreciate your assistance in clarifying documentation. Please respond to the clarification below the line at the bottom and electronically sign. The CDI & [facility] Coding staff will review the response and follow-up if needed. Please note: Queries are made part of the Legal Health Record. If you have any questions, please contact the author of this message via ITS. Doctor/Provider: Mackenzie Muñoz The final diagnosis of the pathology report states mild to moderate chronic and focally activegastritiswith focalerosion. Coding guidelines do not allow coding professionals to code based on pathology results; therefore, clarification is requested. History/risk factors: 84yo M, ADHF,HTN,pericardial effusion, PAF,diverticulosis, a/canemia, MILY, RTrenal mass,DMIIwhyperglycemia Clinical Indicators:NonUlcerativeDyspepsia. Immunostain with appropriate control negative for Helicobacter organisms. Treatment: Stomach,Biopsy- Antrum Please clarify if you agree with the pathology report diagnosis of mild to moderate chronic and focally activegastritiswith focalerosion: [ x ] Yes [ ] No [ ] Other (please specify) [ ] Unable to determine (Template LastRevised: January 2021) MTDD
== END 2025-01-06 12:28 | disposition home health service (06) | DRG 291 ==
LOC: EC 17:44 → 3SCARD 19:51
PROVIDERS: ADMIT Internal Medicine; ATTEND Internal Medicine
PROC: 0DB78ZX Excision of Stomach, Pylorus, Via Natural or Artificial Opening Endoscopic, Diagnostic (ICD-10-PCS; principal; 2025-01-02 10:00)
PROC: 0DJD8ZZ Inspection of Lower Intestinal Tract, Via Natural or Artificial Opening Endoscopic (ICD-10-PCS; 2025-01-04)
DX: I11.0 Hypertensive heart disease with heart failure (principal); I50.31 Acute diastolic (congestive) heart failure; K29.01 Acute gastritis with bleeding; I31.39 Other pericardial effusion (noninflammatory); E87.20 Acidosis, unspecified; J91.8 Pleural effusion in other conditions classified elsewhere; Z66 Do not resuscitate; D63.8 Anemia in other chronic diseases classified elsewhere; C64.1 Malignant neoplasm of right kidney, except renal pelvis; E11.65 Type 2 diabetes mellitus with hyperglycemia; K92.1 Melena; I48.0 Paroxysmal atrial fibrillation; D50.9 Iron deficiency anemia, unspecified; I25.10 Atherosclerotic heart disease of native coronary artery without angina pectoris; K57.30 Diverticulosis of large intestine without perforation or abscess without bleeding; K59.00 Constipation, unspecified; N40.0 Benign prostatic hyperplasia without lower urinary tract symptoms; K64.8 Other hemorrhoids; R26.81 Unsteadiness on feet; Z79.01 Long term (current) use of anticoagulants; Z95.0 Presence of cardiac pacemaker; Z79.899 Other long term (current) drug therapy; Z79.84 Long term (current) use of oral hypoglycemic drugs
CPT/HCPCS: 36415; 43239; 45378; 71045; 71046; 71260; 74177; 80048; 80053; 80061; 81001; 82272; 82728; 83036; 83540; 83550; 83605; 83735; 83880; 84100; 84145; 84443; 84484; 85025; 85027; 85610; 85652; 85730; 86038; 86160; 86225; 86431; 87040; 87449; 87636; 88305; 88342; 93005; 93306; 94640; 96361; 96365; 96366; 96367; 96375; 96376; 99291